=== PATIENT | female | born 1960 | race American Indian/Alaskan Native ===

== ENCOUNTER 2016-09-18 14:10 | Inpatient (IN) | payer MEDICARE ==
--- NOTE | 2016-09-18 14:19 | Emergency Department Report ---
Entered by BRICE SOLER, acting as scribe for KISHAN CAM NP. Chief Complaint: Chest Pain Stated Complaint: STROKE Time Seen by Provider: 09/18/16 14:15 - HPI History of Present Illness: 56 y/o female presents with chest pain and SOB that started last night. Sx include trouble talking. Pt is anxious and crying during eval. - ROS Review of Systems: +chest pain +SOB +trouble talking - Exam Physical Exam: obese pt is anxious and crying MSE screening note: Focused history and physical exam performed. Due to findings the following was ordered: labs, ekg, ct ED Disposition for MSE Condition: Stable This documentation as recorded by the scribe,BRICE SOLER,accurately reflects the service I personally performed and the decisions made by ,KISHAN CAM , [employer].
[2016-09-18 14:40] LABS: Basophils % (Auto) 0.9 % (0.0-1.8); Eosinophils % (Auto) 1.4 % (0.0-4.3); Hematocrit 42.3 % (30.3-42.9); Hemoglobin 13.3 gm/dl (10.1-14.3); Mean Corpuscular HGB Conc 32 % (30-34); Mean Corpuscular Volume 82 fl (79-97); Red Blood Count 5.15 M/mm3 (3.65-5.03); Red Cell Distribution Width 15.9 % (13.2-15.2); White Blood Count 14.5 K/mm3 (4.5-11.0)
[2016-09-18 14:46] LABS: Anion Gap 17 mmol/L; Blood Urea Nitrogen 18 mg/dL (7-17); Calcium 9.6 mg/dL (8.4-10.2); Carbon Dioxide 26 mmol/L (22-30); Chloride 99.7 mmol/L (98-107); Glucose 278 mg/dL (65-100); Potassium 4.7 mmol/L (3.6-5.0); Sodium 138 mmol/L (137-145)
[2016-09-18] MEDS ORDERED: REGLAN IV ONE (14:46)
[2016-09-18] MEDS ORDERED: APRESOLINE IV ONE (14:46)
--- NOTE | 2016-09-18 14:46 | Emergency Department Report ---
ED Neuro Deficit HPI - General Chief Complaint: Neuro Symptoms/Deficit Stated Complaint: STROKE Time Seen by Provider: 09/18/16 14:15 Source: patient, family, RN notes reviewed, old records reviewed Mode of arrival: Ambulatory Limitations: Physical Limitation - History of Present Illness Initial Comments: This is a 56-year-old female. She is previously unknown to me. Past medical history includes stroke, diabetes, hypertension, congestive heart failure, prior stroke with residual right-sided weakness. Her primary care doctor is Dr Mike Patient presents to the ER with her sister with concern for subacute stroke. As per the patient's sister, Ms. Bello; [phone], patient has been having issues with speech and dysarthria since yesterday. The patient has chronic weakness in the right upper and right lower extremity which is not new, worsening or different. Patient also complains of mild global, throbbing headache. There is chronic shortness of breath which is not new, worsening or different. Symptoms started last night at around 9:00 PM. They are constant. They do not have exacerbating or relieving factors. -: Sudden Location: speech Presenting Symptoms: Present: Unable to Speak Clearly History of same: Yes Place: home Severity: severe Quality: constant Improves With: none Worsens With: none On Anticoagulants: Yes Context: gradual onset Associated Symptoms: cough, headaches, loss of appetite, shortness of breath, weakness. denies: confusion, chest pain - Related Data Home Medications: Home Medications Medication Instructions Recorded Confirmed Last Taken Hydrochlorothiazide [HCTZ] 25 mg PO QDAY 09/18/16 09/18/16 09/17/16 Insulin Aspart [NovoLOG Flexpen] 8 unit SQ TID 09/18/16 09/18/16 09/17/16 Insulin Glargine,Hum.rec.anlog 25 unit SQ QHS 09/18/16 09/18/16 09/17/16 [Lantus Solostar] Previous Rx's Medication Instructions Recorded Last Taken Type ALBUTEROL NEB's [Proventil 0.083% 2.5 mg IH Q6HRT #100 nebu 03/09/16 09/17/16 Rx NEBS] Hydralazine HCl [Apresoline TAB] 100 mg PO BID #60 tablet 03/09/16 09/17/16 Rx Allergies/Adverse Reactions: Allergies Allergy/AdvReac Type Severity Reaction Status Date / Time No Known Allergies Allergy Unverified 02/25/14 14:49 ED Review of Systems ROS: Stated complaint: STROKE Other details as noted in HPI Constitutional: malaise, weakness Eyes: denies: vision change Respiratory: shortness of breath, wheezing Cardiovascular: dyspnea on exertion Gastrointestinal: denies: abdominal pain Genitourinary: denies: urgency Musculoskeletal: denies: back pain Skin: denies: lesions Neurological: headache, weakness Psychiatric: anxiety ED Past Medical Hx - Past Medical History Previous Medical History?: Yes Hx Hypertension: Yes Hx Heart Attack/AMI: No Hx Congestive Heart Failure: No Hx Diabetes: Yes Hx Deep Vein Thrombosis: No Hx Pulmonary Embolism: No Hx Liver Disease: No Hx Renal Disease: No Hx Sickle Cell Disease: No Hx Arthritis: No Hx Seizures: No Hx Kidney Stones: No Hx Asthma: Yes Hx COPD: No Hx Tuberculosis: No Hx Dementia: No Hx HIV: No Additional medical history: high cholesterol - Surgical History Past Surgical History?: Yes Hx Coronary Stent: No Hx Open Heart Surgery: No Hx Pacemaker: No Hx Internal Defibrillator: No Hx Cholecystectomy: Yes Hx Appendectomy: Yes Hx Breast Surgery: No - Social History Smoking Status: Never Smoker Substance Use Type: Alcohol, Non Opiate Pain, Prescribed - Medications Home Medications: Home Medications Medication Instructions Recorded Confirmed Last Taken Type ALBUTEROL NEB's [Proventil 0.083% 2.5 mg IH Q6HRT #100 nebu 03/09/16 09/18/16 Rx NEBS] Hydralazine HCl [Apresoline TAB] 100 mg PO BID #60 tablet 03/09/16 09/18/16 Rx Hydrochlorothiazide [HCTZ] 25 mg PO QDAY 09/18/16 09/18/16 09/17/16 History Insulin Aspart [NovoLOG Flexpen] 8 unit SQ TID 09/18/16 09/18/16 09/17/16 History Insulin Glargine,Hum.rec.anlog 25 unit SQ QHS 09/18/16 09/18/16 09/17/16 History [Lantus Solostar] ED Neuro Physical Exam - General Limitations: No Limitations General appearance: alert, in distress, obese Suspected Stroke: Yes - Head Head exam: Present: atraumatic, normocephalic - Eye Eye exam: Present: normal appearance, EOMI. Absent: nystagmus - ENT ENT exam: Present: normal exam, normal orophraynx, mucous membranes moist, normal external ear exam - Neck Neck exam: Present: normal inspection, full ROM. Absent: tenderness, meningismus - Respiratory Respiratory exam: Present: rhonchi - Cardiovascular Cardiovascular Exam: Present: regular rate, normal rhythm, normal heart sounds. Absent: bradycardia, tachycardia, irregular rhythm, systolic murmur, diastolic murmur, rubs, gallop - GI/Abdominal GI/Abdominal exam: Present: soft, normal bowel sounds. Absent: distended, tenderness, guarding, rebound, rigid, pulsatile mass, hernia - Extremities Exam Extremities exam: Present: normal inspection, full ROM, normal capillary refill , pedal edema. Absent: calf tenderness - Back Exam Back exam: Present: normal inspection, full ROM. Absent: tenderness, CVA tenderness (R), CVA tenderness (L), muscle spasm, paraspinal tenderness, vertebral tenderness - Neurological Exam Neurological exam: Present: alert, oriented X3, other (Extraocular movements intact. Tongue midline. No facial droop. Facial sensation intact to light touch in the V1, V2, V3 distribution bilaterally. 5 and 5 strength in 4 extremities.. Sensation is intact to light touch in 4 extremities.). Absent: motor sensory deficit - NIHSS Assessment Interval: Baseline 1a. Level of Consciousness: alert 1b. LOC Questions: answers correctly 1c. LOC Commands: performs tasks correctly 2. Best Gaze: normal 3. Visual: no visual loss 4. Facial Palsy: normal symmetrical movement 5b. Motor Arm Right: no drift 5a. Motor Arm Left: no drift 6a. Motor Leg Left: no drift 6b. Motor Leg Right: no drift 7. Limb Ataxia: absent 8. Sensory: normal 9. Best Language: no aphasia 10. Dysarthria: severe dysarthria 11. Extinction/Inattention: no abnormality Total Score: 2 Stroke Severity: Minor Stroke - Psychiatric Psychiatric exam: Present: anxious - Skin Skin exam: Present: warm, dry, intact, normal color. Absent: rash ED Course Vital Signs 09/18/16 09/18/16 09/18/16 14:17 15:28 15:51 Temperature 97.8 F Pulse Rate 97 H 88 107 H Pulse Rate [ Bilateral Upper Lobe] Respiratory 18 20 Rate Respiratory Rate [Bilateral Upper Lobe] Blood Pressure 220/118 201/128 Blood Pressure 158/81 [Left] O2 Sat by Pulse 96 97 Oximetry 09/18/16 09/18/16 09/18/16 16:02 16:10 17:06 Temperature 97.8 F Pulse Rate 110 H Pulse Rate [ 88 90 Bilateral Upper Lobe] Respiratory 18 Rate Respiratory 20 20 Rate [Bilateral Upper Lobe] Blood Pressure Blood Pressure 120/75 [Left] O2 Sat by Pulse 97 Oximetry - Reevaluation(s) Reevaluation #1: 09/18/16 18:55 Dr. Mike, the hospital physician, patient's private physician , accepts the patient to his personal service. Dr Vasquez informed - Lab Data Result diagrams: 09/18/16 14:16 09/18/16 14:16 Lab Results 09/18/16 09/18/16 09/18/16 Range/Units 14:12 14:16 14:16 WBC 14.5 H (4.5-11.0) K/mm3 RBC 5.15 H (3.65-5.03) M/mm3 Hgb 13.3 (10.1-14.3) gm/dl Hct 42.3 (30.3-42.9) % MCV 82 (79-97) fl MCH 26 L (28-32) pg MCHC 32 (30-34) % RDW 15.9 H (13.2-15.2) % Plt Count 329 (140-440) K/mm3 Lymph % (Auto) 19.4 (13.4-35.0) % [place] % (Auto) 5.5 (0.0-7.3) % Eos % (Auto) 1.4 (0.0-4.3) % Baso % (Auto) 0.9 (0.0-1.8) % Lymph # 2.8 (1.2-5.4) K/mm3 [place] # 0.8 (0.0-0.8) K/mm3 Eos # 0.2 (0.0-0.4) K/mm3 Baso # 0.1 (0.0-0.1) K/mm3 Seg Neutrophils % 72.8 H (40.0-70.0) % Seg Neutrophils # 10.5 H (1.8-7.7) K/mm3 PT 12.6 (12.2-14.9) Sec. INR 0.95 (0.87-1.13) APTT 28.8 (24.2-36.6) Sec. Thrombin Time (15.1-19.6) Sec. Sodium (137-145) mmol/L Potassium (3.6-5.0) mmol/L Chloride (98-107) mmol/L Carbon Dioxide (22-30) mmol/L Anion Gap mmol/L BUN (7-17) mg/dL Creatinine (0.7-1.2) mg/dL Estimated GFR ml/min BUN/Creatinine Ratio % Glucose (65-100) mg/dL POC Glucose 262 H (70-105) Calcium (8.4-10.2) mg/dL Troponin T (0.00-0.029) ng/mL NT-Pro-B Natriuret Pep (0-900) pg/mL Urine Color (Yellow) Urine Turbidity (Clear) Urine pH (5.0-7.0) Ur Specific [place] (1.003-1.030) Urine Protein (Negative) mg/dL Urine Glucose (UA) (Negative) mg/dL Urine Ketones (Negative) mg/dL Urine Blood (Negative) Urine Nitrite (Negative) Urine Bilirubin (Negative) Urine Urobilinogen (<2.0) mg/dL Ur Leukocyte Esterase (Negative) Urine WBC (Auto) (0.0-6.0) /HPF Urine RBC (Auto) (0.0-6.0) /HPF U Epithel Cells (Auto) (0-13.0) /HPF Urine Bacteria (Auto) (Negative) /HPF Urine Mucus /HPF 09/18/16 09/18/16 09/18/16 Range/Units 14:16 14:16 14:16 WBC (4.5-11.0) K/mm3 RBC (3.65-5.03) M/mm3 Hgb (10.1-14.3) gm/dl Hct (30.3-42.9) % MCV (79-97) fl MCH (28-32) pg MCHC (30-34) % RDW (13.2-15.2) % Plt Count (140-440) K/mm3 Lymph % (Auto) (13.4-35.0) % [place] % (Auto) (0.0-7.3) % Eos % (Auto) (0.0-4.3) % Baso % (Auto) (0.0-1.8) % Lymph # (1.2-5.4) K/mm3 [place] # (0.0-0.8) K/mm3 Eos # (0.0-0.4) K/mm3 Baso # (0.0-0.1) K/mm3 Seg Neutrophils % (40.0-70.0) % Seg Neutrophils # (1.8-7.7) K/mm3 PT (12.2-14.9) Sec. INR (0.87-1.13) APTT (24.2-36.6) Sec. Thrombin Time 15.8 (15.1-19.6) Sec. Sodium 138 (137-145) mmol/L Potassium 4.7 (3.6-5.0) mmol/L Chloride 99.7 (98-107) mmol/L Carbon Dioxide 26 (22-30) mmol/L Anion Gap 17 mmol/L BUN 18 H (7-17) mg/dL Creatinine 0.9 (0.7-1.2) mg/dL Estimated GFR > 60 ml/min BUN/Creatinine Ratio 20.00 % Glucose 278 H (65-100) mg/dL POC Glucose (70-105) Calcium 9.6 (8.4-10.2) mg/dL Troponin T < 0.010 (0.00-0.029) ng/mL NT-Pro-B Natriuret Pep 119.2 (0-900) pg/mL Urine Color (Yellow) Urine Turbidity (Clear) Urine pH (5.0-7.0) Ur Specific [place] (1.003-1.030) Urine Protein (Negative) mg/dL Urine Glucose (UA) (Negative) mg/dL Urine Ketones (Negative) mg/dL Urine Blood (Negative) Urine Nitrite (Negative) Urine Bilirubin (Negative) Urine Urobilinogen (<2.0) mg/dL Ur Leukocyte Esterase (Negative) Urine WBC (Auto) (0.0-6.0) /HPF Urine RBC (Auto) (0.0-6.0) /HPF U Epithel Cells (Auto) (0-13.0) /HPF Urine Bacteria (Auto) (Negative) /HPF Urine Mucus /HPF 09/18/16 Range/Units 17:07 WBC (4.5-11.0) K/mm3 RBC (3.65-5.03) M/mm3 Hgb (10.1-14.3) gm/dl Hct (30.3-42.9) % MCV (79-97) fl MCH (28-32) pg MCHC (30-34) % RDW (13.2-15.2) % Plt Count (140-440) K/mm3 Lymph % (Auto) (13.4-35.0) % [place] % (Auto) (0.0-7.3) % Eos % (Auto) (0.0-4.3) % Baso % (Auto) (0.0-1.8) % Lymph # (1.2-5.4) K/mm3 [place] # (0.0-0.8) K/mm3 Eos # (0.0-0.4) K/mm3 Baso # (0.0-0.1) K/mm3 Seg Neutrophils % (40.0-70.0) % Seg Neutrophils # (1.8-7.7) K/mm3 PT (12.2-14.9) Sec. INR (0.87-1.13) APTT (24.2-36.6) Sec. Thrombin Time (15.1-19.6) Sec. Sodium (137-145) mmol/L Potassium (3.6-5.0) mmol/L Chloride (98-107) mmol/L Carbon Dioxide (22-30) mmol/L Anion Gap mmol/L BUN (7-17) mg/dL Creatinine (0.7-1.2) mg/dL Estimated GFR ml/min BUN/Creatinine Ratio % Glucose (65-100) mg/dL POC Glucose (70-105) Calcium (8.4-10.2) mg/dL Troponin T (0.00-0.029) ng/mL NT-Pro-B Natriuret Pep (0-900) pg/mL Urine Color Yellow (Yellow) Urine Turbidity Clear (Clear) Urine pH 5.0 (5.0-7.0) Ur Specific [place] 1.023 (1.003-1.030) Urine Protein >500 (Negative) mg/dL Urine Glucose (UA) 50 (Negative) mg/dL Urine Ketones Neg (Negative) mg/dL Urine Blood Neg (Negative) Urine Nitrite Neg (Negative) Urine Bilirubin Neg (Negative) Urine Urobilinogen < 2.0 (<2.0) mg/dL Ur Leukocyte Esterase Neg (Negative) Urine WBC (Auto) < 1.0 (0.0-6.0) /HPF Urine RBC (Auto) < 1.0 (0.0-6.0) /HPF U Epithel Cells (Auto) 5.0 (0-13.0) /HPF Urine Bacteria (Auto) 1+ (Negative) /HPF Urine Mucus Few /HPF - EKG Data -: EKG Interpreted by Ri EKG shows normal: sinus rhythm 09/18/16 15:38 Normal sinus, 90 bpm, normal axis, high left ventricular voltage,/left ventricular hypertrophy, T-wave inversion 1 and aVL, poor R-wave progression, lateral T wave inversions, poor R progression, not morphologically consistent with STEMI, abnormal EKG, appears unchanged when compared to prior, with the exception of new T-wave inversions in the lateral leads. This is a nonspecific finding. - Radiology Data Radiology results: report reviewed, image reviewed X-ray of the chest is negative for acute findings. Noncontrast CT scan of the brain is negative for acute findings - Medical Decision Making differential diagnosis: Stroke, pneumonia, urinary tract infection, hypertensive encephalopathy/neuropathy Assessment and plan: 56-year-old female with onset of slurred speech and headache since 9:00 last night. Not a TPA candidate as she presented more than 4.5 hours after symptom onset. Not an endovascular candidate as she presented more than 8 hours after symptom onset. Noncontrast CT scan of the brain is negative. EKG has nonspecific findings and changes. This may be hypertensive or neurologically related. Patient is given hydralazine and aspirin as well as Reglan. The case is presented to the Hospital physician, Dr. Vasquez, who accepts the patient for subacute stroke, as well as hypertensive urgency. - Core Measures Measure Exclusions: not indicated - Thrombolytic Inclusion/Exclusion Thrombolytic Exclusion Criteria: Symptom Onset > 3 Hours Critical care attestation.: If time is entered above; I have spent that time in minutes in the direct care of this critically ill patient, excluding procedure time. ED Disposition Clinical Impression: Slurred speech, Hypertension, Morbid obesity with BMI of 50.0-59.9, adult Disposition: DC-09 OP ADMIT IP TO THIS HOSP Is pt being admited?: Yes Does the pt Need Aspirin: Yes Condition: Good Instructions: Hypertension (ED) Referrals: PRIMARY CARE, [Primary Care Provider] - 3-5 Days
--- NOTE | 2016-09-18 14:52 | Admit Criteria Form ---
Admission Criteria Documentation: NEUROLOGY GRG Clinical Indications for Admission to Inpatient Care (Place ' X' for any and all applicable criteria): Hospital admission is needed for appropriate care of the patient because of 1 or more of the following: [ ]I. Encephalitis [ ]II. Severe GUNNER'S MATE M infections indicated by 1 or more of the following(1)(2)(3) : [ ]a) Intracranial abscess [ ]b) Spinal abscess or myelitis [ ]c) Tuberculous or other nonbacterial, nonviral GUNNER'S MATE M infection(8) [ ]III. Vasculitis and 1 or more of the following(14)(15): []a) Altered mental status that is severe or persistent or other acute neurologic change []b) Psychosis []c) Seizure [ ]IV. Status epilepticus or repetitive seizures not controlled with emergent treatment [A] (7)(8) [ ]V. Altered mental status that is severe or persistent [ ]. Transient alteration in consciousness with high-risk etiology; examples include (12)(13): [ ]a) Cardiovascular source [ ]b) Cataplexy [ ]VII. Cerebral aneurysm requiring ANY ONE of the following(14): [ ]a) IV antihypertensives or vasoactive agents [ ]b) Sedation and analgesia for suspected leak [ ]c) Need for external ventricular drainage and cerebral perfusion pressure monitoring [ ]d) Emergent evaluation to determine need for surgical clipping or endovascular coiling by interventional radiology. If surgery is required ( Also use Craniotomy, Supratentorial, for Surgery of Bleeding Intracranial Aneurysm (for bleeding aneurysm) or Craniotomy, Supratentorial (for nonbleeding aneurysm) as appropriate. [ ]VIII. New-onset severe neurologic symptom requiring inpatient care indicated by ANY ONE of the following: [ ]a) Aphasia(15) [ ]b) Weakness (grade 3 or less) [ ]c) Paralysis (eg, hemiplegia) [ ]d) Spasticity(16) [ ]e) Dystonia [ ]e) Ataxia(17) [ ]f) Amnesia(18) [ ]g) Involuntary movements(19) [ ]h) Vertigo [ ] Visual loss [ ]i) Other severe neurologic finding (eg, papilledema, mass effect on imaging, myoclonus not treatable at alternative level of care (eg, observation care) [ ]IX. Guillain-Citra syndrome(20) [ ]X. Myasthenia gravis crisis or inpatient monitoring need as indicated by 1 or more of the following(21): [ ]a) Intensive treatment (eg, course of plasmapheresis) with inadequate outpatient situation to monitor patients status [ ]b) Inadequate airway protection [ ]c) Respiratory insufficiency requiring intubation or inpatient. monitoring [ ]d) Progressive dysphagia with failure to thrive [ ]XI. Multiple sclerosis or other acute demyelinating disease requiring inpatient care as indicated by 1 or more of the following (22)(23): [ ]a) Acute severe deterioration requiring inpatient treatment (eg, IV steroids, plasmapheresis, close observation) [ ]b) Acute complication requiring inpatient care (eg, sepsis, severe decubitus, aspiration) [ ]XII.Parkinson disease requiring inpatient care (Also use Optimal Recovery Care Criteria or General Recovery Criteria as appropriate) indicated by 1 or more of the following(25): [ ]a) Infection (eg, aspiration pneumonia) not treatable at alternative level of care [ ]b Dehydration that is severe or persistent [ ]c) Life-threatening agitation or psychotic behavior not treatable on emergency, observation care, or alternative level (eg, residential) basis [ ]d) Severe medication withdrawal effects (eg, freezing, neuroleptic malignant syndrome) not responsive to emergency and observation care treatment ( as appropriate) [ ]e) Other severe manifestation not treatable at alternative level of care [ ]XII. Amyotrophic lateral sclerosis with inpatient care needs as indicated by ANY ONE of the following(26): [ ]a) Acute complications (eg, aspiration pneumonia, sepsis ) requiring inpatient care ( see other optimal Recovery Guideline as appropriate) [ ]b) Dehydration that is severe persistent AND artificial support desired [ ]c) Inadequate airway protection AND artificial support desired [ ]d) Severe ventilatory insufficiency AND artificial support desired [ ]XIII. Myasthenia gravis crisis or inpatient monitoring need as indicated by 1 or more of the following(21): [] a) Inadequate airway protection []b) Respiratory insufficiency requiring intubation or inpatient monitoring []c) Progressive dysphagia with failure to thrive []d) Intensive treatment (e.g., course of plasmapheresis) with inadequate outpatient situation to monitor patients status [ ]XIV. Multiple sclerosis or other acute demyelinating disease requiring inpatient care indicated by 1 or more of the following[C](36)(43)(44)(45)(46): []a) Acute severe deterioration requiring inpatient treatment (eg, IV steroids, plasmapheresis, close observation) []b) Acute complication requiring inpatient care (eg, sepsis, severe decubitus, aspiration) [ ]XV. Intracranial hypertension (e.g., pseudotumor cerebri) requiring inpatient care (e.g., acute visual loss, inadequate oral intake) (47)(48)(49) [ ]XVI. Parkinson disease requiring inpatient care (Also use Optimal Recovery Care Criteria or General Recovery Criteria as appropriate) indicated by 1 or more of the following(25): [] a) Infection (e.g., aspiration pneumonia) not treatable at alternative level of care []b) Volume depletion not responsive to emergency and observation care treatment (as appropriate) []c) Life-threatening agitation or psychotic behavior not treatable on emergency, observation care, or alternative level (e.g., residential) basis []d) Severe medication withdrawal effects (e.g., freezing, neuroleptic malignant syndrome) not responsive to emergency and observation care treatment (as appropriate) []e) Other severe manifestation not treatable at alternative level of care [ ]XVII. Amyotrophic lateral sclerosis with inpatient care needs as indicated by1 or more of the following(42): []a) Acute complications (eg, aspiration pneumonia, sepsis) requiring inpatient care (see other Optimal Recovery Guideline or General Recovery Guideline as appropriate) []b) Dehydration that is severe or persistent AND artificial support desired []c) Inadequate airway protection AND artificial support desired []d) Severe ventilatory insufficiency AND artificial support desired [ ]XVIII. Severe myopathy, neuropathy, or other neuromuscular disease indicated by 1 or more of the following(42)(52)(53)(54): []a ) New-onset severe diffuse weakness (eg, strength 3/5 or less) []b) Severe dysphagia []c) Dyspnea at rest or with minimal exertion (new) []d) Inadequate airway protection []e) Inadequate ventilation indicated by 1 or more of the following : i) Partial pressure of carbon dioxide greater than 44 mm Hg ( 5.9 kPa) (new) ii) Reduced peak expiratory flow rate (new) iii) Vital capacity less than 50% of predicted (less than 15 mL/kg) iv) Peak inspiratory force less negative than -30 cm H2O (- 2942 Pa) [ ]XVII.Complications of congenital or degenerative disease (eg, infection, seizures, dehydration, injury) not responsive to emergency and observation care treatment (as appropriate ) [C](16)(29)(30) [ ]XVIII.Suspected or confirmed nerve or muscle toxic injury, including ANY ONE of the following: [ ]a) Rhabdomyolysis(31) i) Acute renal failure ii) Dehydration that is severe or persistent iii) Altered mental status that is severe or persistent iv) Electrolyte abnormality that remains after emergency or observation level care ( as appropriate) [ ]b) Botulism(32) [ ]c) Other severe toxin-induced sign or symptom [ ]XIX. Neurologic trauma requiring inpatient treatment (medical) indicated by ANY ONE of the following(33)(34): [ ]a) Vital signs or neurologic signs more frequently than every 4 hours [ ]b) Hyperosmolar therapy [ ]c) Respiratory monitoring [ ]d) Intracranial pressure monitoring and treatment [ ]e) Stabilization and immobilization device placement (eg, braces, body jacket) [ ]f) Intubation & mechanical ventilation for airway protection or therapeutic hyperventilation [ ]g) Other treatment or monitoring needed that requires inpatient level of care [ ]XX.Complications of neurologic devices (eg, ventricular shunt, neurostimulator) requiring 1 or more of the following(35)(36): [ ]a) IV antibiotics with monitoring while awaiting culture results [ ]b) Monitoring for hydrocephalus [X ]XXI. Neurology condition symptom, or finding for which emergency and observation care have failed or are not considered appropriate. See General Criteria: Observation Care ISC, General Admission Criteria GRG, or Pediatric General Admission Criteria GRG guideline as appropriate. The original [facility] content created by [facility] [employer] has been revised. The portions of the content which have been revised are identified through the use of italic text or in bold, and [facility] has neither reviewed nor approved the modified material. All other unmodified content is copyright [facility] [place] Please see references footnoted in the original [facility] edition 2016 Admission Criteria Met: Yes
[2016-09-18 14:55] LABS: INR 0.95 (0.87-1.13)
[2016-09-18 14:56] LABS: Partial Thromboplastin Time 28.8 Sec. (24.2-36.6)
[2016-09-18 15:07] LABS: Mean Corpuscular Hemoglobin 26 pg (28-32)
[2016-09-18 15:13] LABS: Platelet Count 329 K/mm3 (140-440)
--- NOTE | 2016-09-18 15:16 | Cat Scan Report ---
HEAD CT WITHOUT CONTRAST INDICATION: Neurologic deficits less than 6 hours or symptoms present upon awakening. COMPARISON: 03/05/2016 FINDINGS: Noncontrast head CT with few images repeated for motion demonstrates symmetric ventricles and sulci without acute or recent infarct, hemorrhage, mass effect or midline shift. No abnormal extra-axial fluid collections. Posterior fossa structures and basilar cisterns appear within normal limits. Clear paranasal sinuses and mastoid air cells. Extensive bilateral external auditory canal debris may be directly visualized. 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 Normal scalp. CONCLUSION: No acute intracranial CT abnormality with few other findings, as above. MRI is more sensitive for detection of acute infarct and may be useful for further evaluation in the setting of a focal neurologic deficit. Thank you for the opportunity to participate in this patient's care.
--- NOTE | 2016-09-18 15:21 | XRay Report ---
PORTABLE CHEST: SOB. An AP portable view of the chest demonstrates a normal cardiac contour considering the limits of this technique. The lungs are clear with no evidence of infiltrate, fluid or failure. No interval change compared to July 16, 2014. IMPRESSION: Normal portable chest.
[2016-09-18] MEDS ORDERED: BABY ASPIRIN PO ONE (15:40)
[2016-09-18] MEDS ORDERED: ATROVENT IH ONE (15:54)
[2016-09-18] MEDS ORDERED: PROVENTIL IH ONE (15:54)
[2016-09-18] MEDS ORDERED: ATIVAN ONE (16:11)
[2016-09-18] MEDS ORDERED: ATIVAN IV ONE (16:22)
[2016-09-18 17:19] LABS: Bacteria,Urine 1+ /HPF (Negative); Bilirubin,Urine NEG (Negative); Blood,Urine NEG (Negative); Ketones,Urine NEG (Negative); Leukocyte Esterase,Urine NEG (Negative); Mucus,Urine FEW /HPF; Nitrite,Urine NEG (Negative); Protein,Urine >500 mg/dL (Negative); RBC,Urine < 1.0 /HPF (0.0-6.0); Urobilinogen,Urine < 2.0 mg/dL (<2.0); WBC,Urine < 1.0 /HPF (0.0-6.0)
[2016-09-18] MEDS ORDERED: PROVENTIL IH PRN (19:23)
[2016-09-18] MEDS: LOVENOX SUB-Q SCH (21:44)
[2016-09-18] MEDS ORDERED: D50W (25GM) IV PRN (21:48)
[2016-09-18] MEDS: LEVEMIR SUB-Q SCH (22:19)
[2016-09-18] MEDS: NOVOLOG SUB-Q SCH (22:20)
[2016-09-19] MEDS ORDERED: MORPHINE IV PRN (06:16)
[2016-09-19] MEDS: TYLENOL PO PRN ×3 (06:47→16:58)
[2016-09-19] MEDS: NOVOLOG SUB-Q SCH ×4 (09:27→22:13)
--- NOTE | 2016-09-19 09:39 | History and Physical Report ---
History of Present Illness Date of examination: 09/19/16 Date of admission: 09/18/16 19:21 Chief complaint: Slurred speech Headache History of present illness: Pt is a 56-year-old morbidly obese lady with a history of hypertension, diabetes mellitus, prior stroke, noncompliant with office visits and medication , started having slurred speech about a week ago. Slurred speech Progressively got worse, associated with headache that was dull in nature, frontal in location. 9/10 in severity. Nonradiating. No known aggravating factor. Relieved by Tylenol and tramadol. Denies any nausea, vomiting,or chest pain. Presented to the emergency department with systolic blood pressure was found to be in the 200s. Slurred speech was obvious at presentation. CT scan of the brain was ordered. However patient's body habitus couldn't fit into the machine therefore this was not done. MRI question of Dr. Marie reason. Patient was commenced on aspirin and atorvastatin. Blood pressure was optimized with oral antihypertensives medications. Patient also has a history of diabetes mellitus for which she was started on sliding scale insulin. On account of difficulty in obtaining imaging studies patient will be intraventricular for acute stroke. Patient complains of polyuria. Denies any polydipsia. Has burning sensation in both lower extremities. No blurred vision. Admission was therefore requested. Past History Past Medical History: COPD, hypertension, stroke Past Surgical History: No surgical history Social history: single. denies: smoking, alcohol abuse, prescription drug abuse Family history: denies: hypertension Medications and Allergies Allergies Allergy/AdvReac Type Severity Reaction Status Date / Time No Known Allergies Allergy Unverified 02/25/14 14:49 Home Medications Medication Instructions Recorded Confirmed Last Taken Type ALBUTEROL NEB's [Proventil 0.083% 2.5 mg IH Q6HRT #100 nebu 03/09/16 09/18/16 Rx NEBS] Hydralazine HCl [Apresoline TAB] 100 mg PO BID #60 tablet 03/09/16 09/18/16 Rx Hydrochlorothiazide [HCTZ] 25 mg PO QDAY 09/18/16 09/18/16 09/17/16 History Insulin Aspart [NovoLOG Flexpen] 8 unit SQ TID 09/18/16 09/18/16 09/17/16 History Insulin Glargine,Hum.rec.anlog 25 unit SQ QHS 09/18/16 09/18/16 09/17/16 History [Lantus Solostar] Active Meds: Active Medications Acetaminophen (Tylenol) 650 mg PO Q4H PRN PRN Reason: Pain, Mild (1-3) Last Admin: 09/19/16 08:06 Dose: 650 mg Albuterol (Proventil) 2.5 mg IH Q6H PRN PRN Reason: Wheezing Aspirin (Aspirin) 325 mg PO QDAY [facility] Atorvastatin Calcium (Lipitor) 40 mg PO QHS [facility] Last Admin: 09/19/16 01:05 Dose: Not Given Dextrose (D50w (25gm)) 50 ml IV PRN PRN PRN Reason: Hypoglycemia Enoxaparin Sodium (Lovenox) 40 mg SUB-Q DAILY [facility] Last Admin: 09/18/16 21:44 Dose: 40 mg Insulin Aspart (Novolog) 0 units SUB-Q ACHS [facility] PRN Reason: Protocol Last Admin: 09/19/16 09:27 Dose: 8 units Insulin Detemir (Levemir) 25 units SUB-Q QHS [facility] Last Admin: 09/18/16 22:19 Dose: 25 units Methylprednisolone Sodium Succinate (Solu-Medrol) 40 mg IV Q12H [facility] Last Admin: 09/19/16 04:20 Dose: 40 mg Morphine Sulfate (Morphine) 2 mg IV Q4H PRN PRN Reason: Pain, Moderate (4-6) Review of systems Constitutional: Well Nouridhed and Well developed. Head: NC/ AT Eyes: Denies any visual impairments. No discharge from the eyes Nose: Denies any rhinorrhea or epistaxis Throats: Denies any post nasal drainage. Ears: Denies any hearing deficits Cardiovascular system: Denies any chest pain, shortness of breath, orthopnea, paroxysmal nocturnal dyspnea, or palpitation. Respiratory system: Denies any cough, difficulty breathing, wheezing, pleuritic chest pain, Gastrointestinal system: Denies any abdominal pain, nausea vomiting, hematemesis or melena. Neurological system: Has headache, slurred speech, no facial droop, lateralizing weakness Genitalia system: Denies any dysuria, urinary frequency or urgency, urethral discharge Skin: No rashes, hyperpigmented spots. Hematological: Denies any cervical tenderness hemorrhages or petechia. Immunological: Denies any multiple septic spots, Lymphatic: Denies any generalized lymphadenopathy. Endocrine: Denies any polyuria, polydipsia, polyphagia. No heat or cold intolerance. Musculoskeletal system: No joint pain or swelling. Psych: No visual, tactile, auditory or hallucination Exam - Constitutional Vitals: Temp Pulse Resp BP Pulse Ox 99.1 F 107 H 20 216/103 92 09/19/16 07:42 09/19/16 07:42 09/19/16 07:42 09/19/16 07:42 09/19/16 07:42 General appearance: Present: no acute distress, well-nourished, obese, other ( has obvious slurred speech) - EENT Eyes: Present: PERRL ENT: hearing intact, clear oral mucosa - Neck Neck: Present: supple, normal ROM - Respiratory Respiratory effort: normal Respiratory: bilateral: CTA - Cardiovascular Heart Sounds: Present: S1 & S2. Absent: rub, click - Extremities Extremities: pulses symmetrical, No edema Peripheral Pulses: within normal limits - Abdominal General gastrointestinal: Present: soft, non-tender, non-distended, normal bowel sounds Female genitourinary: Present: normal - Integumentary Integumentary: Present: clear, warm, dry - Musculoskeletal Musculoskeletal: gait normal, strength equal bilaterally - Psychiatric Psychiatric: appropriate mood/affect, intact judgment & insight - Neurologic Neurologic: CNII-XII intact, moves all extremities Results - Labs CBC & Chem 7: 09/18/16 14:16 09/18/16 14:16 Labs: Abnormal lab results 09/18/16 Range/Units 22:02 POC Glucose 292 H (70-105) Assessment and Plan Assessment and plan -Possible acute cerebrovascular accident with slow speech -Malignant hypertension -Diabetes mellitus type 2 uncontrolled -COPD -Leukocytosis -Morbid obesity -Sleep apnea -Noncompliance Admit patient to telemetry. Commence patient on oxygen to maintain sats equilibrated 94%. Aspirin 325 mg daily, atorvastatin 40 mg daily at bedtime, Lovenox 40 mg subcutaneous daily, Echocardiogram , PT OT ST evaluation and treatment Optimize glycemic control with sliding scale insulin. Check A1c. Consistent carbohydrate diet Optimize blood pressure control with oral antihypertensives using hydralazine lisinopril and amlodipine The that it does with DuoNeb Leukocytosis likely secondary to IV Solu-Medrol. She has no fever. Further evaluate for sleep apnea on outpatient basis Diet-controlled for morbid obesity. consult was obtained. DVT prophylaxis with Lovenox and GI prophylaxis with Protonix Spent 40 minutes during this admission process and this was emergent, the patient. - Patient Problems (1) Hypertension Onset Date: 02/26/14 Current Visit: Yes Status: Acute Qualifiers: Hypertension type: H (2) Slurred speech Current Visit: Yes Status: Acute (3) Morbid obesity with BMI of 50.0-59.9, adult Onset Date: 07/16/14 Current Visit: Yes Status: Chronic (4) Diabetes Onset Date: 02/26/14 Current Visit: No Status: Chronic Qualifiers: Diabetes mellitus type: type 2 Diabetes mellitus complication status: with circulatory complication Diabetes mellitus complication detail: D Diabetic retinopathy severity: D Proliferative retinopathy type: P Diabetes mellitus macular edema: D Diabetes mellitus termite helper insulin use: D Laterality: L Chronic kidney disease stage: C (5) Small vessel disease, cerebrovascular Onset Date: 07/17/14 Current Visit: No Status: Chronic
[2016-09-19] MEDS ORDERED: HCTZ PO SCH (10:00)
[2016-09-19] MEDS: ASPIRIN PO SCH (11:55)
[2016-09-19] MEDS: NORVASC PO SCH (11:56)
[2016-09-19] MEDS: COREG PO SCH ×2 (11:56→22:13)
[2016-09-19] MEDS: LOVENOX SUB-Q SCH (11:56)
[2016-09-19] MEDS: ULTRAM PO PRN (12:11)
[2016-09-19] MEDS: APRESOLINE PO SCH ×2 (13:15→20:14)
[2016-09-19] MEDS ORDERED: INSULIN ASPART 8 UNIT SQ SCH (14:00)
[2016-09-19] MEDS: PROVENTIL IH SCH ×3 (16:08→20:25)
[2016-09-19] MEDS ORDERED: PROVENTIL IH PRN (21:47)
[2016-09-19] MEDS ORDERED: INSULIN GLARGINE HUM REC ANLOG 25 UNIT SQ SCH (22:00)
[2016-09-19] MEDS: LEVEMIR SUB-Q SCH (22:12)
[2016-09-20 06:28] LABS: Basophils % (Auto) 1.4 % (0.0-1.8); Hematocrit 40.6 % (30.3-42.9); Hemoglobin 12.8 gm/dl (10.1-14.3); Mean Corpuscular HGB Conc 31 % (30-34); Mean Corpuscular Hemoglobin 26 pg (28-32); Mean Corpuscular Volume 82 fl (79-97); Platelet Count 334 K/mm3 (140-440); Red Blood Count 4.97 M/mm3 (3.65-5.03); Red Cell Distribution Width 16.5 % (13.2-15.2); White Blood Count 14.5 K/mm3 (4.5-11.0)
[2016-09-20 06:35] LABS: INR 0.93 (0.87-1.13)
[2016-09-20 06:48] LABS: Alanine Aminotransferase 13 units/L (7-56); Albumin 3.4 g/dL (3.9-5); Albumin/Globulin Ratio 0.8 %; Alkaline Phosphatase 77 units/L (35-129); Anion Gap 18 mmol/L; BUN/Creatinine Ratio 27.77; Bilirubin,Total < 0.20 mg/dL (0.1-1.2); Blood Urea Nitrogen 25 mg/dL (7-17); Calcium 10.6 mg/dL (8.4-10.2); Carbon Dioxide 25 mmol/L (22-30); Glucose 312 mg/dL (65-100); Potassium 4.8 mmol/L (3.6-5.0); Sodium 137 mmol/L (137-145); Total Protein 7.5 g/dL (6.3-8.2)
--- NOTE | 2016-09-20 08:24 | Consultation ---
History of Present Illness - Reason for Consult Consult date: 09/20/16 stroke - History of Present Illness patient is seen and assessed full neuro consult is dictated- she has very slurred speech this is suggestive of brain stem stroek Past History Past Medical History: COPD, hypertension, stroke Past Surgical History: No surgical history Social history: single. denies: smoking, alcohol abuse, prescription drug abuse Family history: denies: hypertension Medications and Allergies Allergies Allergy/AdvReac Type Severity Reaction Status Date / Time No Known Allergies Allergy Unverified 02/25/14 14:49 Home Medications Medication Instructions Recorded Confirmed Last Taken Type ALBUTEROL NEB's [Proventil 0.083% 2.5 mg IH Q6HRT #100 nebu 03/09/16 09/18/16 Rx NEBS] Hydralazine HCl [Apresoline TAB] 100 mg PO BID #60 tablet 03/09/16 09/18/16 Rx Hydrochlorothiazide [HCTZ] 25 mg PO QDAY 09/18/16 09/18/16 09/17/16 History Insulin Aspart [NovoLOG Flexpen] 8 unit SQ TID 09/18/16 09/18/16 09/17/16 History Insulin Glargine,Hum.rec.anlog 25 unit SQ QHS 09/18/16 09/18/16 09/17/16 History [Lantus Solostar] Active Meds: Active Medications Acetaminophen (Tylenol) 650 mg PO Q4H PRN PRN Reason: Pain, Mild (1-3) Last Admin: 09/19/16 16:58 Dose: 650 mg Albuterol (Proventil) 2.5 mg IH TIDRT [facility] Albuterol (Proventil) 2.5 mg IH Q4HRT PRN PRN Reason: Shortness Of Breath Amlodipine Besylate (Norvasc) 10 mg PO QDAY [facility] Last Admin: 09/19/16 11:56 Dose: 10 mg Aspirin (Aspirin) 325 mg PO QDAY [facility] Last Admin: 09/19/16 11:55 Dose: 325 mg Atorvastatin Calcium (Lipitor) 40 mg PO QHS [facility] Last Admin: 09/19/16 22:13 Dose: 40 mg Carvedilol (Coreg) 25 mg PO BID [facility] Last Admin: 09/19/16 22:13 Dose: 25 mg Dextrose (D50w (25gm)) 50 ml IV PRN PRN PRN Reason: Hypoglycemia Enoxaparin Sodium (Lovenox) 40 mg SUB-Q DAILY [facility] Last Admin: 09/19/16 11:56 Dose: 40 mg Hydralazine HCl (Apresoline) 100 mg PO TID [facility] Last Admin: 09/19/16 20:14 Dose: 100 mg Insulin Aspart (Novolog) 0 units SUB-Q ACHS [facility] PRN Reason: Protocol Last Admin: 09/19/16 22:13 Dose: 10 units Insulin Detemir (Levemir) 25 units SUB-Q QHS [facility] Last Admin: 09/19/16 22:12 Dose: 25 units Methylprednisolone Sodium Succinate (Solu-Medrol) 40 mg IV Q12H [facility] Last Admin: 09/20/16 04:42 Dose: 40 mg Morphine Sulfate (Morphine) 2 mg IV Q4H PRN PRN Reason: Pain, Moderate (4-6) Tramadol HCl (Ultram) 50 mg PO Q6H PRN PRN Reason: Pain, Moderate (4-6) Last Admin: 09/19/16 12:11 Dose: 50 mg Exam - Constitutional Vitals: Temp Pulse Resp BP Pulse Ox 98.1 F 92 H 22 196/95 94 09/20/16 04:00 09/20/16 04:00 09/20/16 04:00 09/20/16 04:00 09/20/16 04:00 Results - Labs CBC & Chem 7: 09/20/16 06:03 09/20/16 06:03 Labs: Abnormal lab results 09/19/16 09/19/16 09/19/16 Range/Units 07:50 12:43 15:49 WBC (4.5-11.0) K/mm3 MCH (28-32) pg RDW (13.2-15.2) % Baso # (0.0-0.1) K/mm3 Seg Neutrophils % (40.0-70.0) % Seg Neutrophils # (1.8-7.7) K/mm3 BUN (7-17) mg/dL Glucose (65-100) mg/dL POC Glucose 305 H 297 H 274 H (70-105) Calcium (8.4-10.2) mg/dL Albumin (3.9-5) g/dL 09/19/16 09/20/16 09/20/16 Range/Units 21:41 06:03 06:03 WBC 14.5 H (4.5-11.0) K/mm3 MCH 26 L (28-32) pg RDW 16.5 H (13.2-15.2) % Baso # 0.2 H (0.0-0.1) K/mm3 Seg Neutrophils % 81.1 H (40.0-70.0) % Seg Neutrophils # 11.8 H (1.8-7.7) K/mm3 BUN 25 H (7-17) mg/dL Glucose 312 H (65-100) mg/dL POC Glucose 405 H (70-105) Calcium 10.6 H (8.4-10.2) mg/dL Albumin 3.4 L (3.9-5) g/dL
--- NOTE | 2016-09-20 09:39 | Progress Note ---
Assessment and Plan Assessment and Plan -Possible acute cerebrovascular accident with slow speech -Malignant hypertension - -Diabetes mellitus type 2 uncontrolled -COPD -Leukocytosis -Morbid obesity -Sleep apnea -Noncompliance Admit patient to telemetry. Continue with patient on oxygen to maintain sats equilibrated 94%. Aspirin 325 mg daily, atorvastatin 40 mg daily at bedtime, Lovenox 40 mg subcutaneous daily, Echocardiogram , PT OT ST evaluation and treatment Optimize glycemic control with sliding scale insulin. Check A1c. Consistent carbohydrate diet Optimize blood pressure control with oral antihypertensives using hydralazine lisinopril and amlodipine. Add clonidine Continue with DuoNeb Leukocytosis likely secondary to IV Solu-Medrol. She has no fever. Further evaluate for sleep apnea on outpatient basis Diet-controlled for morbid obesity. consult was obtained. DVT prophylaxis with Lovenox and GI prophylaxis with Protonix Spent 40 minutes during this admission process and this was emergent, the patient. - Patient Problems (1) Hypertension Onset Date: 02/26/14 Current Visit: Yes Status: Acute Qualifiers: Hypertension type: H (2) Slurred speech Current Visit: Yes Status: Acute (3) Morbid obesity with BMI of 50.0-59.9, adult Onset Date: 07/16/14 Current Visit: Yes Status: Chronic (4) Diabetes Onset Date: 02/26/14 Current Visit: No Status: Chronic Qualifiers: Diabetes mellitus type: type 2 Diabetes mellitus complication status: with circulatory complication Diabetes mellitus complication detail: D Diabetic retinopathy severity: D Proliferative retinopathy type: P Diabetes mellitus macular edema: D Diabetes mellitus [facility] insulin use: D Laterality: L Chronic kidney disease stage: C (5) Small vessel disease, cerebrovascular Onset Date: 07/17/14 Current Visit: No Status: Chronic Subjective Date of service: 09/20/16 Principal diagnosis: acute on chronic ischemic stroke, T2DM, malignant HTN Interval history: Still having DIEGO though better. Still having slurred speech Objective - Constitutional Vitals: Vital Signs - 12hr 09/19/16 09/20/16 09/20/16 22:13 00:00 04:00 Temperature 98.0 F 98.1 F Pulse Rate 91 H 98 H 92 H Respiratory 24 22 Rate Blood Pressure 153/93 137/62 196/95 O2 Sat by Pulse 95 94 Oximetry 09/20/16 08:00 Temperature 97.7 F Pulse Rate 88 Respiratory 20 Rate Blood Pressure 209/109 O2 Sat by Pulse Oximetry General appearance: Present: no acute distress - EENT Eyes: PERRL - Neck Neck: supple - Respiratory Respiratory: bilateral: CTA - Cardiovascular Rhythm: regular Extremities: no ischemia - Gastrointestinal General gastrointestinal: Present: soft, non-tender, non-distended - Integumentary Integumentary: clear, warm - Musculoskeletal Musculoskeletal: strength equal bilaterally - Neurologic Neurologic: CNII-XII intact - Psychiatric Psychiatric: appropriate mood/affect - Labs CBC & Chem 7: 09/20/16 06:03 09/20/16 06:03 Labs: Abnormal lab results 09/19/16 09/19/16 09/19/16 Range/Units 07:50 12:43 15:49 WBC (4.5-11.0) K/mm3 MCH (28-32) pg RDW (13.2-15.2) % Baso # (0.0-0.1) K/mm3 Seg Neutrophils % (40.0-70.0) % Seg Neutrophils # (1.8-7.7) K/mm3 BUN (7-17) mg/dL Glucose (65-100) mg/dL POC Glucose 305 H 297 H 274 H (70-105) Calcium (8.4-10.2) mg/dL Albumin (3.9-5) g/dL 09/19/16 09/20/16 09/20/16 Range/Units 21:41 06:03 06:03 WBC 14.5 H (4.5-11.0) K/mm3 MCH 26 L (28-32) pg RDW 16.5 H (13.2-15.2) % Baso # 0.2 H (0.0-0.1) K/mm3 Seg Neutrophils % 81.1 H (40.0-70.0) % Seg Neutrophils # 11.8 H (1.8-7.7) K/mm3 BUN 25 H (7-17) mg/dL Glucose 312 H (65-100) mg/dL POC Glucose 405 H (70-105) Calcium 10.6 H (8.4-10.2) mg/dL Albumin 3.4 L (3.9-5) g/dL
[2016-09-20] MEDS: PROVENTIL IH SCH ×3 (10:05→20:24)
[2016-09-20] MEDS: NORVASC PO SCH (10:05)
[2016-09-20] MEDS: TYLENOL PO PRN ×3 (10:05→21:55)
[2016-09-20] MEDS: ASPIRIN PO SCH (10:05)
[2016-09-20] MEDS: LOVENOX SUB-Q SCH (10:06)
[2016-09-20] MEDS: APRESOLINE PO SCH ×3 (10:06→21:46)
[2016-09-20] MEDS: COREG PO SCH ×2 (10:06→21:46)
[2016-09-20] MEDS: NOVOLOG SUB-Q SCH ×4 (10:09→21:55)
[2016-09-20] MEDS: ULTRAM PO PRN (14:34)
[2016-09-20] MEDS: LEVEMIR SUB-Q SCH (21:46)
--- NOTE | 2016-09-21 01:04 | Consultation ---
HISTORY OF PRESENT ILLNESS: This is a 56-year-old female who is admitted to [facility] for evaluation of slurred speech, profound weakness, difficulty standing. The patient has been admitted to here previously for similar symptoms but the patient does not recall the results of workup. She does have by history a prior history of stroke, diabetes, hypertension, congestive heart failure with chronic residual right-sided weakness. She sees Dr. Mike on an outside basis. She is experiencing increased difficulty with slurring of speech, difficulty with breathing. On review of systems, she has extreme slurred speech and this is a new finding on my examination of the patient. ALLERGIES: She has no known allergies. PHYSICAL EXAMINATION: Blood pressure is 140/80, pulse rate is 80, respirations 18. One conspicuous issue is that when I arrived in the room to see her, she was sitting up and cannot lay flat because of shortness of breath and extreme dyspnea. Her speech is very slurred and quite difficult to understand and quite hypernasal suggesting pharyngeal weakness. Her neck is supple. Acid Filler strength is equal. Face is symmetrical to motor and sensory testing. The patient's motor examination shows she is able to sit. She does have fairly good balance, has full ocular movements, intact hearing with the exception of the note that on the CT scan she does have extensive external auditory canal debris which does make changes or high-pitched hearing somewhat. The patient does not have otherwise any focal motor weakness or sensory loss. IMPRESSION: New-onset of dysarthria, dysphagia, difficulty with maintaining respirations. Potentially this patient may have a number of neurological conditions, I would check an MRI. I did mention to the patient that she has ____ scalp. She was not previously aware of this and also suggested her that she see an ENT doctor for earwax cleaning. Hypertension, controlled. Use of statin and low dose aspirin is of course recommended for stroke risk modification and a stroke scale at this point is 2. JOB# [id number] CRISTINE/NTS
[2016-09-21] MEDS: PROVENTIL IH SCH ×3 (07:51→20:13)
[2016-09-21] MEDS: APRESOLINE PO SCH ×3 (09:00→22:44)
[2016-09-21] MEDS: LOVENOX SUB-Q SCH (10:00)
[2016-09-21] MEDS: NORVASC PO SCH (10:00)
[2016-09-21] MEDS: ASPIRIN PO SCH (10:00)
[2016-09-21] MEDS: COREG PO SCH ×2 (10:00→22:45)
[2016-09-21] MEDS: NOVOLOG SUB-Q SCH ×4 (12:00→22:54)
[2016-09-21] MEDS: TYLENOL PO PRN ×2 (18:46→22:54)
--- NOTE | 2016-09-21 21:44 | Progress Note ---
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 Continue with patient on oxygen to maintain sats equilibrated 94%. Aspirin 325 mg daily, atorvastatin 40 mg daily at bedtime, Lovenox 40 mg subcutaneous daily, Echocardiogram , PT OT ST evaluation and treatment Optimize glycemic control with sliding scale insulin. Check A1c. Consistent carbohydrate diet Optimize blood pressure control with oral antihypertensives using hydralazine lisinopril and amlodipine. Add clonidine Continue with DuoNeb Leukocytosis likely secondary to IV Solu-Medrol. She has no fever. Further evaluate for sleep apnea on outpatient basis Diet-controlled for morbid obesity. consult was obtained. DVT prophylaxis with Lovenox and GI prophylaxis with Protonix Spent 40 minutes during this admission process and this was emergent, the patient. - Patient Problems (1) Hypertension Onset Date: 02/26/14 Current Visit: Yes Status: Acute Qualifiers: Hypertension type: H (2) Slurred speech Current Visit: Yes Status: Acute (3) Morbid obesity with BMI of 50.0-59.9, adult Onset Date: 07/16/14 Current Visit: Yes Status: Chronic (4) Diabetes Onset Date: 02/26/14 Current Visit: No Status: Chronic Qualifiers: Diabetes mellitus type: type 2 Diabetes mellitus complication status: with circulatory complication Diabetes mellitus complication detail: D Diabetic retinopathy severity: D Proliferative retinopathy type: P Diabetes mellitus macular edema: D Diabetes mellitus [facility] insulin use: D Laterality: L Chronic kidney disease stage: C (5) Small vessel disease, cerebrovascular Onset Date: 07/17/14 Current Visit: No Status: Chronic Subjective Date of service: 09/21/16 Principal diagnosis: acute on chronic ischemic stroke, T2DM, malignant HTN Interval history: Still having DIEGO though better. Still having slurred speech Objective - Constitutional Vitals: Vital Signs - 12hr 09/21/16 09/21/16 09/21/16 14:13 16:18 18:46 Temperature 98.2 F Pulse Rate 85 Pulse Rate [ 78 Anterior Bilateral Throughout] Respiratory 20 22 Rate Respiratory 15 Rate [Anterior Bilateral Throughout] Blood Pressure 126/69 O2 Sat by Pulse 93 Oximetry 09/21/16 09/21/16 09/21/16 19:48 20:13 20:24 Temperature 98.5 F Pulse Rate 91 H Pulse Rate [ 94 H 91 H Anterior Bilateral Throughout] Respiratory 20 Rate Respiratory 20 20 Rate [Anterior Bilateral Throughout] Blood Pressure 150/83 O2 Sat by Pulse 100 99 Oximetry General appearance: Present: no acute distress, well-nourished, obese - EENT Eyes: PERRL, EOM intact Ears: bilateral: normal - Neck Neck: supple, normal ROM - Respiratory Respiratory effort: normal Respiratory: bilateral: CTA - Cardiovascular Rhythm: regular Heart Sounds: Present: S1 & S2. Absent: gallop, rub Extremities: pulses intact, No edema, normal color, Full ROM - Gastrointestinal General gastrointestinal: Present: soft, non-tender, non-distended, normal bowel sounds - Integumentary Integumentary: clear, warm, dry - Musculoskeletal Musculoskeletal: 1, strength equal bilaterally - Neurologic Neurologic: moves all extremities - Psychiatric Psychiatric: memory intact, appropriate mood/affect, intact judgment & insight - Labs CBC & Chem 7: 09/20/16 06:03 09/20/16 06:03 Labs: Abnormal lab results 09/20/16 09/21/16 09/21/16 Range/Units 21:26 07:15 12:29 POC Glucose 318 H 300 H 356 H (70-105) 09/21/16 Range/Units 16:00 POC Glucose 341 H (70-105)
[2016-09-21] MEDS: LEVEMIR SUB-Q SCH (22:46)
[2016-09-22] MEDS: PROVENTIL IH SCH ×3 (08:05→20:24)
[2016-09-22] MEDS: NOVOLOG SUB-Q SCH ×4 (08:43→23:23)
[2016-09-22] MEDS: APRESOLINE PO SCH ×3 (09:00→21:51)
[2016-09-22] MEDS: ASPIRIN PO SCH (10:00)
[2016-09-22] MEDS: LOVENOX SUB-Q SCH (10:25)
[2016-09-22] MEDS: NORVASC PO SCH (10:25)
[2016-09-22] MEDS: COREG PO SCH ×2 (10:35→21:51)
[2016-09-22] MEDS: TYLENOL PO PRN (16:40)
[2016-09-22] MEDS: ULTRAM PO PRN ×2 (16:40→21:50)
--- NOTE | 2016-09-22 19:24 | Progress Note ---
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 Continue with patient on oxygen to maintain sats equilibrated 94%. continue with Aspirin 325 mg daily, atorvastatin 40 mg daily at bedtime, Lovenox 40 mg subcutaneous daily, Echocardiogram showed LVEF of 55-60 with diastolic dysfunction.continue with PT OT ST treatment Optimize glycemic control with sliding scale insulin. Increase basal insulin Consistent carbohydrate diet Optimize blood pressure control with oral antihypertensives using hydralazine lisinopril and amlodipine. Add clonidine Continue with DuoNeb Leukocytosis likely secondary to IV Solu-Medrol. She has no fever. Further evaluate for sleep apnea on outpatient basis Diet-controlled for morbid obesity. Dietary consult was obtained. DVT prophylaxis with Lovenox and GI prophylaxis with Protonix Spent 25min minutes during this admission process and this was emergent, the patient. - Patient Problems (1) Hypertension Onset Date: 02/26/14 Current Visit: Yes Status: Acute Qualifiers: Hypertension type: H (2) Slurred speech Current Visit: Yes Status: Acute (3) Morbid obesity with BMI of 50.0-59.9, adult Onset Date: 07/16/14 Current Visit: Yes Status: Chronic (4) Diabetes Onset Date: 02/26/14 Current Visit: No Status: Chronic Qualifiers: Diabetes mellitus type: type 2 Diabetes mellitus complication status: with circulatory complication Diabetes mellitus complication detail: D Diabetic retinopathy severity: D Proliferative retinopathy type: P Diabetes mellitus macular edema: D Diabetes mellitus long term care administrator insulin use: D Laterality: L Chronic kidney disease stage: C (5) Small vessel disease, cerebrovascular Onset Date: 07/17/14 Current Visit: No Status: Chronic Subjective Date of service: 09/22/16 Principal diagnosis: acute on chronic ischemic stroke, T2DM, malignant HTN Interval history: DIEGO resolved. Still dysarthric with pain in both legs. Objective - Constitutional Vitals: Vital Signs - 12hr 09/22/16 09/22/16 09/22/16 08:05 08:15 08:18 Temperature 97.5 F L Pulse Rate 69 Pulse Rate [ 65 75 Anterior Bilateral Throughout] Respiratory 16 Rate Respiratory 18 20 Rate [Anterior Bilateral Throughout] Blood Pressure 182/90 O2 Sat by Pulse 96 96 Oximetry 09/22/16 09/22/16 09/22/16 13:46 13:56 14:00 Temperature Pulse Rate 73 Pulse Rate [ 87 88 Anterior Bilateral Throughout] Respiratory Rate Respiratory 18 20 Rate [Anterior Bilateral Throughout] Blood Pressure O2 Sat by Pulse Oximetry 09/22/16 16:40 Temperature 97.9 F Pulse Rate 87 Pulse Rate [ Anterior Bilateral Throughout] Respiratory 16 Rate Respiratory Rate [Anterior Bilateral Throughout] Blood Pressure 144/73 O2 Sat by Pulse 96 Oximetry General appearance: Present: no acute distress, well-nourished - EENT Eyes: PERRL, EOM intact - Neck Neck: supple, normal ROM - Respiratory Respiratory effort: normal Respiratory: bilateral: CTA - Cardiovascular Rhythm: regular Heart Sounds: Present: S1 & S2. Absent: gallop, rub Extremities: pulses intact, No edema, normal color, Full ROM - Gastrointestinal General gastrointestinal: Present: soft, non-tender, non-distended, normal bowel sounds - Integumentary Integumentary: clear, warm, dry - Musculoskeletal Musculoskeletal: 1, strength equal bilaterally - Neurologic Neurologic: moves all extremities - Psychiatric Psychiatric: memory intact, appropriate mood/affect, intact judgment & insight - Labs CBC & Chem 7: 09/20/16 06:03 09/20/16 06:03 Labs: Abnormal lab results 09/21/16 09/22/16 09/22/16 Range/Units 21:20 07:24 13:58 POC Glucose 382 H 362 H 433 H (70-105) 09/22/16 Range/Units 17:58 POC Glucose 403 H (70-105)
[2016-09-22] MEDS: LEVEMIR SUB-Q SCH (23:27)
[2016-09-23] MEDS: APRESOLINE PO SCH ×3 (08:03→21:38)
[2016-09-23] MEDS: NOVOLOG SUB-Q SCH ×4 (08:19→21:56)
[2016-09-23] MEDS: PROVENTIL IH SCH ×3 (08:20→19:32)
[2016-09-23] MEDS: LOVENOX SUB-Q SCH (13:02)
[2016-09-23] MEDS: NORVASC PO SCH (13:03)
[2016-09-23] MEDS: COREG PO SCH ×2 (13:03→21:38)
[2016-09-23] MEDS: ASPIRIN PO SCH (13:20)
[2016-09-23] MEDS: TYLENOL PO PRN (13:21)
--- NOTE | 2016-09-23 13:44 | Consultation ---
History of Present Illness - Reason for Consult Consult date: 09/23/16 STROKE - History of Present Illness STILL VERY DIZZY AND OFF BALENCE BUT VERY AKLERT SPEECH DYSARTHRIA LIKE THAT SEEN IN [facility] [facility] Past History Past Medical History: COPD, hypertension, stroke Past Surgical History: No surgical history Social history: single. denies: smoking, alcohol abuse, prescription drug abuse Family history: denies: hypertension Medications and Allergies Allergies Allergy/AdvReac Type Severity Reaction Status Date / Time No Known Allergies Allergy Unverified 02/25/14 14:49 Home Medications Medication Instructions Recorded Confirmed Last Taken Type ALBUTEROL NEB's [Proventil 0.083% 2.5 mg IH Q6HRT #100 nebu 03/09/16 09/18/16 Rx NEBS] Hydralazine HCl [Apresoline TAB] 100 mg PO BID #60 tablet 03/09/16 09/18/16 Rx Hydrochlorothiazide [HCTZ] 25 mg PO QDAY 09/18/16 09/18/16 09/17/16 History Insulin Aspart [NovoLOG Flexpen] 8 unit SQ TID 09/18/16 09/18/16 09/17/16 History Insulin Glargine,Hum.rec.anlog 25 unit SQ QHS 09/18/16 09/18/16 09/17/16 History [Lantus Solostar] Active Meds: Active Medications Acetaminophen (Tylenol) 650 mg PO Q4H PRN PRN Reason: Pain, Mild (1-3) Last Admin: 09/23/16 13:21 Dose: 650 mg Albuterol (Proventil) 2.5 mg IH TIDRT [facility] Last Admin: 09/23/16 08:20 Dose: 2.5 mg Albuterol (Proventil) 2.5 mg IH Q4HRT PRN PRN Reason: Shortness Of Breath Amlodipine Besylate (Norvasc) 10 mg PO QDAY [facility] Last Admin: 09/23/16 13:03 Dose: 10 mg Aspirin (Aspirin) 325 mg PO QDAY [facility] Last Admin: 09/23/16 13:20 Dose: 325 mg Atorvastatin Calcium (Lipitor) 40 mg PO QHS [facility] Last Admin: 09/22/16 21:50 Dose: 40 mg Carvedilol (Coreg) 25 mg PO BID [facility] Last Admin: 09/23/16 13:03 Dose: 25 mg Dextrose (D50w (25gm)) 50 ml IV PRN PRN PRN Reason: Hypoglycemia Enoxaparin Sodium (Lovenox) 40 mg SUB-Q DAILY [facility] Last Admin: 09/23/16 13:02 Dose: 40 mg Hydralazine HCl (Apresoline) 100 mg PO TID [facility] Last Admin: 09/23/16 13:06 Dose: 100 mg Insulin Aspart (Novolog) 0 units SUB-Q ACHS [facility] PRN Reason: Protocol Last Admin: 09/23/16 13:04 Dose: 10 units Insulin Detemir (Levemir) 40 units SUB-Q QHS [facility] Last Admin: 09/22/16 23:27 Dose: 40 units Methylprednisolone Sodium Succinate (Solu-Medrol) 40 mg IV Q12H [facility] Last Admin: 09/23/16 04:04 Dose: 40 mg Morphine Sulfate (Morphine) 2 mg IV Q4H PRN PRN Reason: Pain, Moderate (4-6) Last Admin: 09/23/16 04:04 Dose: 2 mg Tramadol HCl (Ultram) 50 mg PO Q6H PRN PRN Reason: Pain, Moderate (4-6) Last Admin: 09/22/16 21:50 Dose: 50 mg Exam - Constitutional Vitals: Temp Pulse Resp BP Pulse Ox 97.5 F L 85 20 137/68 94 09/23/16 08:00 09/23/16 08:00 09/23/16 08:00 09/23/16 08:00 09/23/16 08:00 Results - Labs CBC & Chem 7: 09/20/16 06:03 09/20/16 06:03 Labs: Abnormal lab results 09/22/16 09/22/16 09/22/16 Range/Units 13:58 15:57 17:58 POC Glucose 433 H 399 H 403 H (70-105) 09/22/16 Range/Units 22:57 POC Glucose 256 H (70-105)
[2016-09-23] MEDS: ULTRAM PO PRN (18:56)
[2016-09-23] MEDS: LEVEMIR SUB-Q SCH (21:38)
[2016-09-24] MEDS: ULTRAM PO PRN ×2 (02:43→17:12)
[2016-09-24] MEDS: PROVENTIL IH SCH ×3 (08:04→20:36)
[2016-09-24] MEDS: NOVOLOG SUB-Q SCH ×4 (09:02→22:09)
[2016-09-24] MEDS: COREG PO SCH ×2 (09:03→22:08)
[2016-09-24] MEDS: NORVASC PO SCH (09:04)
[2016-09-24] MEDS: LOVENOX SUB-Q SCH (09:04)
[2016-09-24] MEDS: APRESOLINE PO SCH ×3 (09:04→22:08)
[2016-09-24] MEDS: ASPIRIN PO SCH (09:04)
[2016-09-24] MEDS: LEVEMIR SUB-Q SCH (22:08)
[2016-09-24] MEDS: TYLENOL PO PRN (22:14)
[2016-09-25] MEDS: ULTRAM PO PRN (03:59)
[2016-09-25 04:58] VITALS: BP 136/79
[2016-09-25] MEDS: APRESOLINE PO SCH ×2 (08:00→13:21)
[2016-09-25] MEDS: PROVENTIL IH SCH ×2 (08:11→13:34)
[2016-09-25] MEDS: NOVOLOG SUB-Q SCH ×2 (08:52→11:30)
[2016-09-25] MEDS: COREG PO SCH (09:09)
[2016-09-25] MEDS: ASPIRIN PO SCH (09:09)
[2016-09-25] MEDS: NORVASC PO SCH (09:09)
[2016-09-25] MEDS: LOVENOX SUB-Q SCH (09:09)
--- NOTE | 2016-09-25 10:42 | Discharge Summary ---
Providers - Providers Date of Admission: 09/18/16 19:21 Date of discharge: 09/25/16 Attending physician: ELLEN ORELLANA 09/19/16 09:34 Consult to Physician [CONS] Routine Consulting Provider: GRACIELA HODGE Reason For Exam: stroke Place consult to:: fawad Notified:: PLEASE CALL MD IN AM Phone number called:: [phone] Was contact made?: Yes Time called:: 13:37 09/20/16 10:53 Speech Therapy Evaluation and Treat [CONS] Routine Reason For Exam: cva 09/20/16 10:54 Occupational Therapy Evaluate and Treat [CONS] Routine Comment: Reason For Exam: cva Physical Therapy Evaluation and Treat [CONS] Routine Comment: Reason For Exam: cva Primary care physician: ORNAMENTAL PAINTER Hospitalization Reason for admission: acute stroke, DM, HTN Condition: Good Pertinent studies: CT head, ECHO Procedures: none Hospital course: Patient is a 56-year-old lady who was a history of hypertension, COPD, prior stroke presented emergency Department on account of severe dysmetria. Had no lateralizing weakness. CT scan of the brain was unremarkable. MRI was recommended. The patient's body habitus could not fit into an MRI admission. Neurology consult was obtained. After evaluation on a brainstem acute stroke was diagnosed. Patient admission was commenced on aspirin, atorvastatin, PT OT ST and oxygen. Patient still has dysmetria that has improved slightly. Patient was noted to have his severely elevated blood pressure was controlled with oral antihypertensives medication. Was continued on medical dilators and Solu-Medrol for COPD. That was mellitus controlled with sliding scale insulin. However IV Solu-Medrol attempt to increase the level of the blood sugar. This was discontinued. Patient's dysmetria has improved and is therefore been discharged to follow primary care physician and to continue follow-up with neurologist. Patient has a history of noncompliance appears well advised to improve compliance office visit medication. Disposition: TO HOME OR SELFCARE - Discharge Diagnoses (1) Hypertension Status: Acute Qualifiers: Hypertension type: H (2) Slurred speech Status: Acute (3) Morbid obesity with BMI of 50.0-59.9, adult Status: Chronic (4) Diabetes Status: Chronic Qualifiers: Diabetes mellitus type: type 2 Diabetes mellitus complication status: with circulatory complication Diabetes mellitus complication detail: D Diabetic retinopathy severity: D Proliferative retinopathy type: P Diabetes mellitus macular edema: D Diabetes mellitus chick sexer insulin use: D Laterality: L Chronic kidney disease stage: C (5) Small vessel disease, cerebrovascular Status: Chronic Core Measure Documentation - Palliative Care Palliative Care/ Comfort Measures: Not Applicable - Core Measures Any of the following diagnoses?: stroke - VTE Discharge Requirements Deep Vein Thrombosis/Pulmonary Embolism Present on Admission: No Has pt received <5 days of overlap therapy or INR<2.0: No Anticoagulant overlap therapy prescribed at discharge: No Contraindication No Overlap Therapy order at DC: Not Indicated - Stroke Discharge Requirements Statin for LDL = or >70 mg/dl on DC: Yes (had no DVT) Anticoag for atrial fib/atrial flutter: Not Applicable Antithrombotic for ischemic stroke: Yes Stroke additional comments: Pt will continue with speech therapy on out pt basis Exam - Constitutional Vitals: Temp Pulse Resp BP Pulse Ox 98.4 F 76 18 136/79 96 09/25/16 04:55 09/25/16 08:12 09/25/16 08:12 09/25/16 04:55 09/25/16 04:55 General appearance: Present: obese - EENT Eyes: Present: PERRL - Neck Neck: Present: supple, normal ROM - Respiratory Respiratory effort: normal Respiratory: bilateral: CTA - Cardiovascular Heart Sounds: Present: S1 & S2. Absent: rub, click - Extremities Extremities: pulses symmetrical, No edema Peripheral Pulses: within normal limits - Abdominal General gastrointestinal: Present: soft, non-tender, non-distended, normal bowel sounds - Integumentary Integumentary: Present: clear, warm, dry - Musculoskeletal Musculoskeletal: gait normal, strength equal bilaterally - Psychiatric Psychiatric: appropriate mood/affect, intact judgment & insight - Neurologic Neurologic: CNII-XII intact, moves all extremities, other (dysmetria) Plan Activity: advance as tolerated Weight Bearing Status: Weight Bear as Tolerated Diet: low salt, diabetic Special Instructions: other Durable Medical Equipment Needed Upon Discharge: Cane, other (speech therapist on out pt basis) Follow up with: PRIMARY CARE, [Primary Care Provider] - 3-5 Days Prescriptions: amLODIPine [Norvasc] 10 mg PO QDAY #30 tablet Aspirin [Aspirin TAB] 325 mg PO QDAY #60 tablet AtorvaSTATin [Lipitor] 40 mg PO QHS #30 tablet Carvedilol [Coreg] 25 mg PO BID #30 tablet hydrALAZINE [Apresoline TAB] 100 mg PO TID #90 tab Hydrochlorothiazide [HCTZ] 25 mg PO QDAY #30 tablet Insulin Aspart [NovoLOG Flexpen] 8 unit SQ TID #100 insuln.pen Insulin Detemir [Levemir] 40 units SUB-Q QHS #300 units
== END 2016-09-25 15:18 | disposition home or self-care (01) | DRG 65 ==
LOC: ED 14:10 → 4A 19:21
PROVIDERS: ADMIT Family Medicine; ATTEND Family Medicine
DX: I63.9 Cerebral infarction, unspecified (principal); Z68.43 Body mass index [BMI] 50.0-59.9, adult; I16.1 Hypertensive emergency; G81.91 Hemiplegia, unspecified affecting right dominant side; J44.9 Chronic obstructive pulmonary disease, unspecified; D72.829 Elevated white blood cell count, unspecified; E66.01 Morbid (severe) obesity due to excess calories; E11.9 Type 2 diabetes mellitus without complications; I11.0 Hypertensive heart disease with heart failure; I50.9 Heart failure, unspecified; F41.9 Anxiety disorder, unspecified; R47.1 Dysarthria and anarthria; R13.10 Dysphagia, unspecified; G47.30 Sleep apnea, unspecified; Z90.49 Acquired absence of other specified parts of digestive tract; Z91.14 Patient's other noncompliance with medication regimen
CPT/HCPCS: 36415; 70450; 71010; 80048; 80053; 81001; 82962; 83519; 83735; 83880; 84100; 84484; 85025; 85610; 85670; 85730; 93005; 93010; 93306; 94640; 94644; 94760; 99285; A9270-GY; G8978-GP; G8979-GP; G8980-GP; G8987-GO; G8988-GO; G8989-GO; G8996-GN; G8997-GN; G8998-GN; J0360; J1650; J1815; J1818; J2060; J2270; J2765; J2920; J2930

== ENCOUNTER 2017-01-20 13:27 | Inpatient (IN) | payer MEDICARE ==
[2017-01-20 15:44] LABS: Basophils % (Auto) 1.3 % (0.0-1.8); Eosinophils % (Auto) 1.7 % (0.0-4.3); Mean Corpuscular HGB Conc 31 % (30-34); Mean Corpuscular Hemoglobin 26 pg (28-32); Mean Corpuscular Volume 85 fl (79-97); Platelet Count 340 K/mm3 (140-440); Red Blood Count 4.94 M/mm3 (3.65-5.03); Red Cell Distribution Width 15.6 % (13.2-15.2); White Blood Count 13.7 K/mm3 (4.5-11.0)
[2017-01-20 15:59] LABS: Anion Gap 18 mmol/L; BUN/Creatinine Ratio 15; Blood Urea Nitrogen 12 mg/dL (7-17); Calcium 9.9 mg/dL (8.4-10.2); Carbon Dioxide 27 mmol/L (22-30); Chloride 101.2 mmol/L (98-107); Glucose 167 mg/dL (65-100); Potassium 3.7 mmol/L (3.6-5.0); Sodium 142 mmol/L (137-145)
[2017-01-20 16:04] LABS: Hematocrit 42.2 % (30.3-42.9); Hemoglobin 12.9 gm/dl (10.1-14.3)
--- NOTE | 2017-01-20 16:09 | XRay Report ---
FINAL REPORT PROCEDURE: XR CHEST ROUTINE 2V TECHNIQUE: PA and lateral chest radiographs were obtained. CPT 35037 HISTORY: Shortness of breath COMPARISON: No prior studies are available for comparison. FINDINGS: Heart: Normal contour. Mediastinum/Vessels: Normal contour. Lungs/Pleural space: No infiltrate, effusion, or pneumothorax. Bony thorax: No acute osseous abnormality. Other: IMPRESSION: No pulmonary infiltrate is identified.
--- NOTE | 2017-01-20 16:10 | Emergency Department Report ---
HPI - General Chief Complaint: Dyspnea/Respdistress Time Seen by Provider: 01/20/17 16:01 - HPI HPI: This is a 57-year-old -[place] female presents to the emergency department by EMS from home with a three-day history of progressively worsening shortness of breath. She has an occasional dry cough that is worse at night and feels like she has been wheezing. She says that she has a past medical history that includes hypertension and insulin-dependent diabetes. The records from her PCP, Dr. Mike, show that she also has a history of a previous stroke , COPD, and is usually noncompliant with medication and follow-up. She also appears to have a more remote history of alcohol and prescription drug abuse. She has not taken anything for her symptoms by presentation. She was given 5 mg of albuterol in route by EMS. No recent travel or sick contacts at home. ED Past Medical Hx - Past Medical History Hx Hypertension: Yes Hx Heart Attack/AMI: No Hx Congestive Heart Failure: No Hx Diabetes: Yes Hx Deep Vein Thrombosis: No Hx Pulmonary Embolism: No Hx Liver Disease: No Hx Renal Disease: No Hx Sickle Cell Disease: No Hx Arthritis: No Hx Seizures: No Hx Kidney Stones: No Hx Asthma: Yes Hx COPD: No Hx Tuberculosis: No Hx Dementia: No Hx HIV: No Additional medical history: high cholesterol - Surgical History Hx Coronary Stent: No Hx Open Heart Surgery: No Hx Pacemaker: No Hx Internal Defibrillator: No Hx Cholecystectomy: Yes Hx Appendectomy: Yes Hx Breast Surgery: No - Social History Smoking Status: Never Smoker - Medications Home Medications: Home Medications Medication Instructions Recorded Confirmed Last Taken Type ALBUTEROL NEB's [Proventil 0.083% 2.5 mg IH Q4HRT PRN #100 nebu 09/25/16 Unknown Rx NEBS] Acetaminophen [Acetaminophen TAB] 650 mg PO Q4H PRN #90 tablet 09/25/16 Unknown Rx Aspirin [Aspirin TAB] 325 mg PO QDAY #60 tablet 09/25/16 Unknown Rx AtorvaSTATin [Lipitor] 40 mg PO QHS #30 tablet 09/25/16 Unknown Rx Carvedilol [Coreg] 25 mg PO BID #30 tablet 09/25/16 Unknown Rx Hydrochlorothiazide [HCTZ] 25 mg PO QDAY #30 tablet 09/25/16 Unknown Rx Insulin Aspart [NovoLOG Flexpen] 8 unit SQ TID #100 insuln.pen 09/25/16 Unknown Rx Insulin Detemir [Levemir] 40 units SUB-Q QHS #300 units 09/25/16 Unknown Rx amLODIPine [Norvasc] 10 mg PO QDAY #30 tablet 09/25/16 Unknown Rx hydrALAZINE [Apresoline TAB] 100 mg PO TID #90 tab 09/25/16 Unknown Rx ED Review of Systems ROS: Stated complaint: DIFF BREATHING Other details as noted in HPI Comment: All other systems reviewed and negative Constitutional: denies: chills, fever Eyes: denies: eye pain, eye discharge, vision change ENT: denies: ear pain, throat pain Respiratory: cough, shortness of breath, wheezing Cardiovascular: denies: chest pain, palpitations Gastrointestinal: denies: abdominal pain, nausea, diarrhea Genitourinary: denies: urgency, dysuria, discharge Musculoskeletal: denies: back pain, joint swelling, arthralgia Skin: denies: rash, lesions Neurological: denies: headache, weakness, paresthesias Physical Exam - Physical Exam Vital Signs: Vital Signs 01/20/17 14:58 Temperature 97.5 F L Pulse Rate 88 Respiratory 22 Rate Blood Pressure 234/122 O2 Sat by Pulse 89 Oximetry Physical Exam: GENERAL: The patient is well-developed well-nourished. HENT: Normocephalic. Atraumatic. Patient has moist mucous membranes. EYES: Extraocular motions are intact. Pupils equal reactive to light bilaterally. NECK: Supple. Trachea is midline. CHEST/LUNGS: Mild wheezing throughout the chest. There is mild tachypnea but no excessive muscle use. There is no respiratory distress noted. HEART/CARDIOVASCULAR: Regular. There is no tachycardia. There is no gallop rub or murmur. ABDOMEN: Abdomen is soft, nontender. Patient has normal bowel sounds. Severely morbidly obese. SKIN: Skin is warm and dry. NEURO: The patient is awake, alert, and oriented. The patient is cooperative. The patient has no focal neurologic deficits. The patient has normal speech. MUSCULOSKELETAL: There is no tenderness or deformity. There is no limitation range of motion. There is no evidence of acute injury. ED Course Vital Signs 01/20/17 14:58 Temperature 97.5 F L Pulse Rate 88 Respiratory 22 Rate Blood Pressure 234/122 O2 Sat by Pulse 89 Oximetry - ABG Interpretation Ph: 7.336 PCO2: 60 PO2: 84 Bicarbonate: 32 Interpretation: metabolic acidosis ED Medical Decision Making - Lab Data Result diagrams: 01/20/17 15:18 01/20/17 15:18 - Radiology Data Radiology results: image reviewed interpreted by me: Chest x-ray does not show any acute process. There are no pleural effusions, obvious pneumonia and there is no pneumothorax. - Medical Decision Making 57-year-old female presents with a few days of shortness of breath. She does have some bronchospasm on physical exam. Negative for PE and unlikely to be CHF given the labs. Chest x-ray does not show any pneumonia or any other acute process. However she does have some continued hypoxia but is stable with some supplemental oxygen at this time. We will continue to monitor her. I spoke to Dr. Walker, flood control engineer for Dr. Mike, and the patient has been accepted to their service and they have asked for MedSurg floor, 40 mg Solu-Medrol every 8 hours and when necessary albuterol. - Differential Diagnosis COPD, CHF, PE, Pneumonia Critical Care Time: No Critical care attestation.: If time is entered above; I have spent that time in minutes in the direct care of this critically ill patient, excluding procedure time. ED Disposition Clinical Impression: Hypertensive urgency, Morbid obesity with BMI of 50.0-59.9, adult, COPD exacerbation Dyspnea Qualifiers: Dyspnea type: shortness of breath Qualified Code(s): R06.02 - Shortness of breath Disposition: OP ADMIT IP TO THIS HOSP Is pt being admited?: Yes Condition: Stable Instructions: Chronic Bronchitis (ED) Referrals: PRIMARY CARE, [Primary Care Provider] - 3-5 Days Time of Disposition: 17:28
[2017-01-20 16:29] LABS: ISTAT Base Excess 6; ISTAT PCO2 59.8 (35-45); ISTAT PH 7.336 (7.35-7.45); ISTAT PO2 84 (80-105); ISTAT SO2 95; ISTAT TCO2 34
[2017-01-20] MEDS ORDERED: APRESOLINE IV ONE (17:06)
[2017-01-20] MEDS ORDERED: PROVENTIL IH ONE (17:30)
[2017-01-20] MEDS: PROVENTIL IH SCH ×2 (19:07→19:34)
[2017-01-20] MEDS ORDERED: MORPHINE IV ONE (19:28)
[2017-01-20] MEDS ORDERED: NORCO 5/325 PO ONE (20:16)
[2017-01-20] MEDS ORDERED: NORCO 5/325 ONE (20:22)
--- NOTE | 2017-01-20 23:30 | History and Physical Report ---
History of Present Illness Date of examination: 01/20/17 Date of admission: 01/20/17 17:28 Chief complaint: Shortness of breath Cough Generalized weakness History of present illness: 57 year old patient of Dr Mike for whom Im covering presented via the emergency room with complaint of progressive shortness of breath , pooly productive cough as well as genralized weakness ongoing for the past three days .Patient has history of COPD ,hypertension ,and Type 2 Diabetes and and has multiple hospitalization on account of exacerbation of COPD most recently a few months ago . [facility] . Cough and shortness of breath got progressively worse today and thus was brought to the ER .No associated chest pain and no fever but has been getting progressively weak . Past History Past Medical History: COPD, diabetes Family history: diabetes, hypertension Medications and Allergies Allergies Allergy/AdvReac Type Severity Reaction Status Date / Time No Known Allergies Allergy Unverified 02/25/14 14:49 Home Medications Medication Instructions Recorded Confirmed Last Taken Type ALBUTEROL NEB's [Proventil 0.083% 2.5 mg IH Q4HRT PRN #100 nebu 09/25/16 Unknown Rx NEBS] Acetaminophen [Acetaminophen TAB] 650 mg PO Q4H PRN #90 tablet 09/25/16 Unknown Rx Aspirin [Aspirin TAB] 325 mg PO QDAY #60 tablet 09/25/16 Unknown Rx AtorvaSTATin [Lipitor] 40 mg PO QHS #30 tablet 09/25/16 Unknown Rx Carvedilol [Coreg] 25 mg PO BID #30 tablet 09/25/16 Unknown Rx Hydrochlorothiazide [HCTZ] 25 mg PO QDAY #30 tablet 09/25/16 Unknown Rx Insulin Aspart [NovoLOG Flexpen] 8 unit SQ TID #100 insuln.pen 09/25/16 Unknown Rx Insulin Detemir [Levemir] 40 units SUB-Q QHS #300 units 09/25/16 Unknown Rx amLODIPine [Norvasc] 10 mg PO QDAY #30 tablet 09/25/16 Unknown Rx hydrALAZINE [Apresoline TAB] 100 mg PO TID #90 tab 09/25/16 Unknown Rx Active Meds: Active Medications Acetaminophen (Tylenol) 650 mg PO Q4H PRN PRN Reason: Pain, Mild (1-3) Albuterol (Proventil) 2.5 mg IH Q4HRT [facility] Last Admin: 01/20/17 19:34 Dose: Not Given Amlodipine Besylate (Norvasc) 10 mg PO QDAY [facility] Aspirin (Aspirin) 325 mg PO QDAY [facility] Atorvastatin Calcium (Lipitor) 40 mg PO QHS [facility] Carvedilol (Coreg) 25 mg PO BID [facility] Heparin Sodium (Porcine) (Heparin) 5,000 unit SUB-Q Q8HR [facility] Hydralazine HCl (Apresoline) 100 mg PO TID [facility] Hydrochlorothiazide (Hctz) 25 mg PO QDAY [facility] Methylprednisolone Sodium Succinate (Solu-Medrol) 40 mg IV Q8H [facility] Review of Systems Constitutional: weight gain, anorexia, fatigue, chronic pain Cardiovascular: orthopnea, palpitations, edema, lightheadedness, shortness of breath, dyspnea on exertion, high blood pressure, leg edema Respiratory: cough, shortness of breath, dyspnea on exertion, sleep apnea, home oxygen Gastrointestinal: indigestion, early satiety Musculoskeletal: low back pain, limitation of motion, gait dysfunction Neurological: parathesias, numbness, lack of coordination, balance difficulties Endocrine: excessive thirst, polyuria, weight change, palpatations, high blood sugars Exam - Constitutional Vitals: Temp Pulse Resp BP Pulse Ox 97.5 F L 95 H 20 172/118 98 01/20/17 14:58 01/20/17 19:11 01/20/17 20:28 01/20/17 18:58 01/20/17 18:15 General appearance: Present: mild distress - Neck Neck: Present: supple - Respiratory Respiratory effort: labored Respiratory: bilateral: diminished, wheezing - Cardiovascular Heart Sounds: Present: S1 & S2 - Extremities Extremity abnormal: edema, pulses diminished - Abdominal General gastrointestinal: Present: soft, non-tender, non-distended, normal bowel sounds - Rectal Rectal Exam: deferred - Integumentary Integumentary: Present: warm - Musculoskeletal Musculoskeletal: generalized weakness - Psychiatric Psychiatric: appropriate mood/affect - Neurologic Neurologic: CNII-XII intact, moves all extremities Results - Labs CBC & Chem 7: 01/20/17 15:18 01/20/17 15:18 Labs: Abnormal lab results 01/20/17 01/20/17 01/20/17 Range/Units 15:18 15:18 16:27 WBC 13.7 H (4.5-11.0) K/mm3 MCH 26 L (28-32) pg RDW 15.6 H (13.2-15.2) % Baso # 0.2 H (0.0-0.1) K/mm3 Seg Neutrophils # 9.2 H (1.8-7.7) K/mm3 POC ABG pH 7.336 L (7.35-7.45) POC ABG pCO2 59.8 H (35-45) Glucose 167 H (65-100) mg/dL Assessment and Plan - Patient Problems (1) Type 2 diabetes mellitus without complications Current Visit: Yes Status: Acute (2) COPD exacerbation Current Visit: Yes Status: Acute (3) Dyspnea Current Visit: Yes Status: Acute Qualifiers: Dyspnea type: shortness of breath Qualified Code(s): R06.02 - Shortness of breath; R06.00 - Dyspnea, unspecified; R06.01 - Orthopnea (4) Morbid obesity with BMI of 50.0-59.9, adult Onset Date: 07/16/14 Current Visit: Yes Status: Chronic (5) Hypertension Onset Date: 02/26/14 Current Visit: No Status: Acute
[2017-01-20] MEDS: HEPARIN SUB-Q SCH (23:31)
[2017-01-20] MEDS ORDERED: D50W (25GM) Vial IV PRN (23:36)
[2017-01-21] MEDS: PROVENTIL IH SCH ×6 (00:16→20:06)
[2017-01-21] MEDS ORDERED: APRESOLINE IV PRN (02:58)
[2017-01-21] MEDS ORDERED: NORCO 5/325 PO ONE (03:01)
[2017-01-21] MEDS: HEPARIN SUB-Q SCH ×3 (07:28→22:37)
[2017-01-21] MEDS: APRESOLINE PO SCH ×3 (09:01→22:47)
[2017-01-21] MEDS: TYLENOL PO PRN ×4 (09:02→22:48)
[2017-01-21] MEDS ORDERED: NOVOLOG SUB-Q ONE (09:30)
[2017-01-21] MEDS: NOVOLOG SUB-Q SCH ×3 (09:30→18:01)
[2017-01-21] MEDS: COREG PO SCH ×2 (10:28→22:37)
[2017-01-21] MEDS: NORVASC PO SCH (10:28)
[2017-01-21] MEDS: ASPIRIN PO SCH (10:28)
[2017-01-21] MEDS: HCTZ PO SCH (10:40)
--- NOTE | 2017-01-21 13:19 | Progress Note ---
Assessment and Plan - Patient Problems (1) Type 2 diabetes mellitus without complications Current Visit: Yes Status: Acute Plan to address problem: Continue current long-acting insulin with sliding scale coverage for blood sugar greater than 200 (2) COPD exacerbation Current Visit: Yes Status: Acute Plan to address problem: Aerosol treatments, intravenous Solu-Medrol, O2 supplementation, monitor oxygenation closely (3) Dyspnea Current Visit: Yes Status: Acute Qualifiers: Dyspnea type: shortness of breath Qualified Code(s): R06.02 - Shortness of breath; R06.00 - Dyspnea, unspecified; R06.01 - Orthopnea Plan to address problem: Aerosol treatment as ordered follow-up pending labs to rule out any underlying infection (4) Morbid obesity with BMI of 50.0-59.9, adult Onset Date: 07/16/14 Current Visit: Yes Status: Chronic (5) Hypertension Onset Date: 02/26/14 Current Visit: No Status: Acute Qualifiers: Hypertension type: essential hypertension Qualified Code(s): I10 - Essential (primary) hypertension Plan to address problem: Continue on present antihypertensive therapy Subjective Date of service: 01/21/17 Principal diagnosis: COPD exacerbation with hypoxia Interval history: Patient feels better overall but still short of breath, no fever and denied chest pain, lower extremity swelling subsiding. Objective - Exam Narrative Exam: GENERAL: In moderate respiratory distress, mildly pale but not jaundiced, moderately obese HEENT: Normocephalic, mucous membranes moist pharynx is clear with no exudate or hemorrhage NECK: [No JVD, no thyroid enlargement and no lymphadenopathy.] CHEST poor air exchange with prolonged expiration bilateral scattered wheeze expiratory wheeze [No chest wall tenderness, percussion is normal, symmetrical chest wall.] HEART tachycardia. Second heart sounds only does no audible murmur ABDOMEN: [Abdomen is soft, nondistended, no guarding, no rebound tenderness, no masses palpable per abdomen, active bowel sounds.] SKIN: [Warm and dry, no rash.] NEURO: [Awake, alert, oriented x3, speech normal. Power 5/5 in all the extremities.] EXTREMITIES: Bilateral pitting edema up to mid leg, bilateral stasis dermatitis. Weak peripheral pulses no finger clubbing no cyanosis. - Constitutional Vitals: Vital Signs - 12hr 01/21/17 01/21/17 01/21/17 02:00 02:17 02:19 Temperature Pulse Rate Pulse Rate [ Throughout] Respiratory Rate Respiratory Rate [ Throughout] Blood Pressure 229/125 229/125 229/125 O2 Sat by Pulse 92 97 96 Oximetry 01/21/17 01/21/17 01/21/17 02:20 02:21 02:23 Temperature Pulse Rate Pulse Rate [ Throughout] Respiratory Rate Respiratory Rate [ Throughout] Blood Pressure 192/116 192/116 192/116 O2 Sat by Pulse 96 96 96 Oximetry 01/21/17 01/21/17 01/21/17 02:25 02:27 02:29 Temperature Pulse Rate Pulse Rate [ Throughout] Respiratory Rate Respiratory Rate [ Throughout] Blood Pressure 192/116 192/116 192/116 O2 Sat by Pulse 95 96 97 Oximetry 01/21/17 01/21/17 01/21/17 02:30 02:31 02:33 Temperature Pulse Rate Pulse Rate [ Throughout] Respiratory Rate Respiratory Rate [ Throughout] Blood Pressure 196/106 196/106 196/106 O2 Sat by Pulse 96 96 96 Oximetry 01/21/17 01/21/17 01/21/17 02:35 02:37 02:39 Temperature Pulse Rate Pulse Rate [ Throughout] Respiratory Rate Respiratory Rate [ Throughout] Blood Pressure 196/106 196/106 196/106 O2 Sat by Pulse 96 97 97 Oximetry 01/21/17 01/21/17 01/21/17 02:41 02:43 02:45 Temperature Pulse Rate Pulse Rate [ Throughout] Respiratory Rate Respiratory Rate [ Throughout] Blood Pressure 196/106 196/106 196/106 O2 Sat by Pulse 97 96 98 Oximetry 01/21/17 01/21/17 01/21/17 02:47 02:49 02:51 Temperature Pulse Rate Pulse Rate [ Throughout] Respiratory Rate Respiratory Rate [ Throughout] Blood Pressure 196/106 196/106 196/106 O2 Sat by Pulse 95 95 96 Oximetry 01/21/17 01/21/17 01/21/17 02:53 03:39 04:36 Temperature Pulse Rate 98 H Pulse Rate [ 91 H Throughout] Respiratory Rate Respiratory 18 Rate [ Throughout] Blood Pressure 196/106 192/116 O2 Sat by Pulse 98 Oximetry 01/21/17 01/21/17 01/21/17 04:40 05:30 05:31 Temperature Pulse Rate Pulse Rate [ 93 H Throughout] Respiratory Rate Respiratory 18 Rate [ Throughout] Blood Pressure 171/84 171/84 O2 Sat by Pulse 97 97 Oximetry 01/21/17 01/21/17 01/21/17 05:33 05:35 05:37 Temperature Pulse Rate Pulse Rate [ Throughout] Respiratory Rate Respiratory Rate [ Throughout] Blood Pressure 171/84 171/84 171/84 O2 Sat by Pulse 96 97 98 Oximetry 01/21/17 01/21/17 01/21/17 05:39 05:41 05:43 Temperature Pulse Rate Pulse Rate [ Throughout] Respiratory Rate Respiratory Rate [ Throughout] Blood Pressure 171/84 171/84 171/84 O2 Sat by Pulse 97 97 97 Oximetry 01/21/17 01/21/17 01/21/17 05:45 05:47 05:49 Temperature Pulse Rate Pulse Rate [ Throughout] Respiratory Rate Respiratory Rate [ Throughout] Blood Pressure 171/84 171/84 171/84 O2 Sat by Pulse 97 97 97 Oximetry 01/21/17 01/21/17 01/21/17 05:51 05:53 05:55 Temperature Pulse Rate Pulse Rate [ Throughout] Respiratory Rate Respiratory Rate [ Throughout] Blood Pressure 171/84 171/84 171/84 O2 Sat by Pulse 96 97 97 Oximetry 01/21/17 01/21/17 01/21/17 05:57 05:59 06:01 Temperature Pulse Rate Pulse Rate [ Throughout] Respiratory Rate Respiratory Rate [ Throughout] Blood Pressure 171/84 171/84 168/88 O2 Sat by Pulse 97 98 98 Oximetry 01/21/17 01/21/17 01/21/17 06:03 06:05 06:07 Temperature Pulse Rate Pulse Rate [ Throughout] Respiratory Rate Respiratory Rate [ Throughout] Blood Pressure 168/88 168/88 168/88 O2 Sat by Pulse 97 97 96 Oximetry 01/21/17 01/21/17 01/21/17 06:09 06:11 06:13 Temperature Pulse Rate Pulse Rate [ Throughout] Respiratory Rate Respiratory Rate [ Throughout] Blood Pressure 168/88 168/88 168/88 O2 Sat by Pulse 98 98 97 Oximetry 01/21/17 01/21/17 01/21/17 06:15 06:17 06:19 Temperature Pulse Rate Pulse Rate [ Throughout] Respiratory Rate Respiratory Rate [ Throughout] Blood Pressure 168/88 168/88 168/88 O2 Sat by Pulse 96 97 97 Oximetry 01/21/17 01/21/17 01/21/17 06:21 06:23 06:25 Temperature Pulse Rate Pulse Rate [ Throughout] Respiratory Rate Respiratory Rate [ Throughout] Blood Pressure 168/88 168/88 168/88 O2 Sat by Pulse 97 97 97 Oximetry 01/21/17 01/21/17 01/21/17 06:27 06:29 06:30 Temperature Pulse Rate Pulse Rate [ Throughout] Respiratory Rate Respiratory Rate [ Throughout] Blood Pressure 168/88 168/88 159/88 O2 Sat by Pulse 97 97 97 Oximetry 01/21/17 01/21/17 01/21/17 06:31 06:33 06:35 Temperature Pulse Rate Pulse Rate [ Throughout] Respiratory Rate Respiratory Rate [ Throughout] Blood Pressure 159/88 159/88 159/88 O2 Sat by Pulse 98 97 98 Oximetry 01/21/17 01/21/17 01/21/17 06:37 06:39 06:41 Temperature Pulse Rate Pulse Rate [ Throughout] Respiratory Rate Respiratory Rate [ Throughout] Blood Pressure 159/88 159/88 159/88 O2 Sat by Pulse 97 98 95 Oximetry 01/21/17 01/21/17 01/21/17 06:43 06:45 06:47 Temperature Pulse Rate Pulse Rate [ Throughout] Respiratory Rate Respiratory Rate [ Throughout] Blood Pressure 159/88 159/88 159/88 O2 Sat by Pulse 94 94 95 Oximetry 01/21/17 01/21/17 01/21/17 06:49 06:51 06:53 Temperature Pulse Rate Pulse Rate [ Throughout] Respiratory Rate Respiratory Rate [ Throughout] Blood Pressure 159/88 159/88 159/88 O2 Sat by Pulse 95 95 96 Oximetry 01/21/17 01/21/17 01/21/17 06:55 06:57 06:59 Temperature Pulse Rate Pulse Rate [ Throughout] Respiratory Rate Respiratory Rate [ Throughout] Blood Pressure 159/88 159/88 159/88 O2 Sat by Pulse 94 97 96 Oximetry 01/21/17 01/21/17 01/21/17 07:00 07:01 07:03 Temperature Pulse Rate Pulse Rate [ Throughout] Respiratory Rate Respiratory Rate [ Throughout] Blood Pressure 162/90 162/90 162/90 O2 Sat by Pulse 93 97 96 Oximetry 01/21/17 01/21/17 01/21/17 07:05 07:07 07:09 Temperature Pulse Rate Pulse Rate [ Throughout] Respiratory Rate Respiratory Rate [ Throughout] Blood Pressure 162/90 162/90 162/90 O2 Sat by Pulse 95 96 98 Oximetry 01/21/17 01/21/17 01/21/17 07:11 07:13 07:15 Temperature Pulse Rate Pulse Rate [ Throughout] Respiratory Rate Respiratory Rate [ Throughout] Blood Pressure 162/90 162/90 162/90 O2 Sat by Pulse 99 97 97 Oximetry 01/21/17 01/21/17 01/21/17 07:17 07:19 07:21 Temperature Pulse Rate Pulse Rate [ Throughout] Respiratory Rate Respiratory Rate [ Throughout] Blood Pressure 162/90 162/90 162/90 O2 Sat by Pulse 98 97 96 Oximetry 01/21/17 01/21/17 01/21/17 07:23 07:25 07:27 Temperature Pulse Rate Pulse Rate [ Throughout] Respiratory Rate Respiratory Rate [ Throughout] Blood Pressure 162/90 162/90 162/90 O2 Sat by Pulse 97 98 97 Oximetry 01/21/17 01/21/17 01/21/17 07:29 07:31 07:33 Temperature Pulse Rate Pulse Rate [ Throughout] Respiratory Rate Respiratory Rate [ Throughout] Blood Pressure 162/90 162/90 162/90 O2 Sat by Pulse 95 97 96 Oximetry 01/21/17 01/21/17 01/21/17 07:34 07:37 07:39 Temperature Pulse Rate Pulse Rate [ Throughout] Respiratory Rate Respiratory Rate [ Throughout] Blood Pressure 162/90 162/90 162/90 O2 Sat by Pulse 98 98 97 Oximetry 01/21/17 01/21/17 01/21/17 07:41 07:43 07:45 Temperature Pulse Rate Pulse Rate [ Throughout] Respiratory Rate Respiratory Rate [ Throughout] Blood Pressure 162/90 162/90 162/90 O2 Sat by Pulse 98 98 98 Oximetry 01/21/17 01/21/17 01/21/17 07:47 07:49 07:51 Temperature Pulse Rate Pulse Rate [ Throughout] Respiratory Rate Respiratory Rate [ Throughout] Blood Pressure 162/90 162/90 162/90 O2 Sat by Pulse 98 95 94 Oximetry 01/21/17 01/21/17 01/21/17 07:53 07:55 07:57 Temperature Pulse Rate Pulse Rate [ Throughout] Respiratory Rate Respiratory Rate [ Throughout] Blood Pressure 162/90 162/90 162/90 O2 Sat by Pulse 95 97 96 Oximetry 01/21/17 01/21/17 01/21/17 07:59 08:01 08:02 Temperature Pulse Rate Pulse Rate [ Throughout] Respiratory Rate Respiratory Rate [ Throughout] Blood Pressure 162/90 162/90 162/90 O2 Sat by Pulse 98 97 96 Oximetry 01/21/17 01/21/17 01/21/17 08:03 08:13 08:14 Temperature Pulse Rate Pulse Rate [ Throughout] Respiratory Rate Respiratory Rate [ Throughout] Blood Pressure 162/90 168/103 168/103 O2 Sat by Pulse 96 92 97 Oximetry 01/21/17 01/21/17 01/21/17 08:29 10:33 11:01 Temperature 98.0 F Pulse Rate 106 H Pulse Rate [ Throughout] Respiratory 22 Rate Respiratory Rate [ Throughout] Blood Pressure 160/84 O2 Sat by Pulse 94 96 95 Oximetry - Labs CBC & Chem 7: 01/20/17 15:18 01/20/17 15:18 Labs: Abnormal lab results 01/20/17 01/20/17 01/20/17 Range/Units 15:18 15:18 16:27 WBC 13.7 H (4.5-11.0) K/mm3 MCH 26 L (28-32) pg RDW 15.6 H (13.2-15.2) % Baso # 0.2 H (0.0-0.1) K/mm3 Seg Neutrophils # 9.2 H (1.8-7.7) K/mm3 POC ABG pH 7.336 L (7.35-7.45) POC ABG pCO2 59.8 H (35-45) Glucose 167 H (65-100) mg/dL POC Glucose (70-105) 01/21/17 01/21/17 Range/Units 08:27 12:43 WBC (4.5-11.0) K/mm3 MCH (28-32) pg RDW (13.2-15.2) % Baso # (0.0-0.1) K/mm3 Seg Neutrophils # (1.8-7.7) K/mm3 POC ABG pH (7.35-7.45) POC ABG pCO2 (35-45) Glucose (65-100) mg/dL POC Glucose 323 H 215 H (70-105)
[2017-01-21] MEDS: LEVEMIR SUB-Q SCH (22:37)
[2017-01-22] MEDS: PROVENTIL IH SCH ×4 (00:08→14:59)
[2017-01-22] MEDS: PERCOCET 5/325 PO PRN ×3 (02:23→18:00)
[2017-01-22] MEDS: HEPARIN SUB-Q SCH ×3 (05:48→22:23)
[2017-01-22] MEDS: NOVOLOG SUB-Q SCH ×3 (08:19→17:15)
[2017-01-22] MEDS: APRESOLINE PO SCH ×3 (08:19→22:21)
[2017-01-22] MEDS: HCTZ PO SCH (09:45)
[2017-01-22] MEDS: ASPIRIN PO SCH (09:45)
[2017-01-22] MEDS: COREG PO SCH ×2 (09:46→22:21)
[2017-01-22] MEDS: NORVASC PO SCH (09:46)
[2017-01-22] MEDS ORDERED: PROVENTIL IH PRN (12:14)
[2017-01-22] MEDS: DUONEB *Not for PRN Use IH SCH ×2 (14:47→21:25)
[2017-01-22] MEDS: LEVEMIR SUB-Q SCH (22:21)
[2017-01-23] MEDS: PERCOCET 5/325 PO PRN ×3 (03:08→18:23)
[2017-01-23] MEDS: HEPARIN SUB-Q SCH ×3 (06:23→22:14)
[2017-01-23] MEDS: APRESOLINE PO SCH ×3 (08:34→20:01)
[2017-01-23] MEDS: NOVOLOG SUB-Q SCH ×3 (08:34→17:54)
--- NOTE | 2017-01-23 09:40 | Progress Note ---
Assessment and Plan - Type 2 diabetes mellitus without complications continue wtih SSI, Consistent CHO diet, Lantus - COPD exacerbation Aerosol treatments, intravenous Solu-Medrol, O2 supplementation, monitor oxygenation closely - Dyspnea Aerosol treatment as ordered follow-up pending labs to rule out any underlying infection - Morbid obesity with BMI of 50.0-59.9, adult - Hypertension Continue on present antihypertensive therapy - Prior stroke with Dysarhtria: Contiu with ASA and statin - DVT and GI prophylaxis with Lovenox and Pepcid Subjective Date of service: 01/23/17 Principal diagnosis: COPD exacerbation with hypoxia Interval history: Still having difficluty in breathing. no fever Objective - Constitutional Vitals: Vital Signs - 12hr 01/23/17 07:56 Temperature 97.9 F Pulse Rate 84 Respiratory 24 Rate Blood Pressure 144/77 O2 Sat by Pulse 97 Oximetry General appearance: Present: no acute distress, well-nourished - EENT Eyes: PERRL, EOM intact - Neck Neck: supple, normal ROM - Respiratory Respiratory effort: normal Respiratory: bilateral: diminished - Cardiovascular Rhythm: regular Heart Sounds: Present: S1 & S2. Absent: gallop, rub Extremities: pulses intact, No edema, normal color, Full ROM - Gastrointestinal General gastrointestinal: Present: soft, non-tender, non-distended, normal bowel sounds - Integumentary Integumentary: clear, warm, dry - Musculoskeletal Musculoskeletal: 1, strength equal bilaterally - Neurologic Neurologic: moves all extremities, gait normal (dysarthria) - Psychiatric Psychiatric: memory intact, appropriate mood/affect, intact judgment & insight - Labs CBC & Chem 7: 01/20/17 15:18 01/20/17 15:18 Labs: Abnormal lab results 01/22/17 01/22/17 01/22/17 Range/Units 11:52 16:37 21:38 POC Glucose 305 H 371 H 330 H (70-105) 01/23/17 Range/Units 05:26 POC Glucose 320 H (70-105)
[2017-01-23] MEDS: DUONEB *Not for PRN Use IH SCH ×3 (10:07→20:51)
[2017-01-23] MEDS: NORVASC PO SCH (10:21)
[2017-01-23] MEDS: COREG PO SCH ×2 (10:21→22:13)
[2017-01-23] MEDS: HCTZ PO SCH (10:21)
[2017-01-23] MEDS: ASPIRIN PO SCH (10:21)
[2017-01-23 11:24] LABS: Basophils % (Auto) 0.2 % (0.0-1.8); Hematocrit 41.5 % (30.3-42.9); Hemoglobin 13.1 gm/dl (10.1-14.3); Mean Corpuscular HGB Conc 32 % (30-34); Mean Corpuscular Hemoglobin 27 pg (28-32); Mean Corpuscular Volume 85 fl (79-97); Platelet Count 356 K/mm3 (140-440); Red Blood Count 4.87 M/mm3 (3.65-5.03); Red Cell Distribution Width 15.5 % (13.2-15.2); White Blood Count 13.5 K/mm3 (4.5-11.0)
[2017-01-23 11:40] LABS: Calcium 10.7 mg/dL (8.4-10.2); Phosphorous 4.3 mg/dL (2.5-4.5)
[2017-01-23 11:41] LABS: Chloride 90.5 mmol/L (98-107)
[2017-01-23] MEDS: LEVEMIR SUB-Q SCH (22:15)
[2017-01-24] MEDS: PERCOCET 5/325 PO PRN ×2 (04:28→14:42)
[2017-01-24] MEDS: HEPARIN SUB-Q SCH ×3 (04:30→16:59)
[2017-01-24 06:42] LABS: Basophils % (Auto) 0.7 % (0.0-1.8); Hematocrit 39.5 % (30.3-42.9); Hemoglobin 12.6 gm/dl (10.1-14.3); Mean Corpuscular HGB Conc 32 % (30-34); Mean Corpuscular Hemoglobin 28 pg (28-32); Mean Corpuscular Volume 86 fl (79-97); Platelet Count 292 K/mm3 (140-440); Red Blood Count 4.58 M/mm3 (3.65-5.03); Red Cell Distribution Width 15.6 % (13.2-15.2); White Blood Count 10.2 K/mm3 (4.5-11.0)
[2017-01-24 07:05] LABS: Alanine Aminotransferase 13 units/L (7-56); Albumin 3.3 g/dL (3.9-5); Alkaline Phosphatase 75 units/L (35-129); Anion Gap 19 mmol/L; BUN/Creatinine Ratio 33; Bilirubin,Total < 0.20 mg/dL (0.1-1.2); Blood Urea Nitrogen 49 mg/dL (7-17); Calcium 10.1 mg/dL (8.4-10.2); Carbon Dioxide 25 mmol/L (22-30); Chloride 93.4 mmol/L (98-107); Potassium 5.1 mmol/L (3.6-5.0); Sodium 132 mmol/L (137-145); Total Protein 6.6 g/dL (6.3-8.2)
[2017-01-24 07:12] LABS: Glucose 502 mg/dL (65-100)
[2017-01-24] MEDS: NOVOLOG SUB-Q SCH ×2 (07:23→11:43)
[2017-01-24] MEDS: DUONEB *Not for PRN Use IH SCH ×2 (08:41→14:40)
[2017-01-24 09:36] VITALS: BP 130/80
[2017-01-24] MEDS: NORVASC PO SCH (09:36)
[2017-01-24] MEDS: COREG PO SCH (09:36)
[2017-01-24] MEDS: APRESOLINE PO SCH ×2 (09:36→14:49)
[2017-01-24] MEDS: ASPIRIN PO SCH (09:37)
[2017-01-24] MEDS: HCTZ PO SCH (09:38)
--- NOTE | 2017-01-24 09:42 | Progress Note ---
Assessment and Plan - Type 2 diabetes mellitus without complications continue wtih SSI, Consistent CHO diet, Lantus - COPD exacerbation Aerosol treatments, intravenous Solu-Medrol, O2 supplementation, monitor oxygenation closely - Dyspnea Aerosol treatment as ordered follow-up pending labs to rule out any underlying infection - Morbid obesity with BMI of 50.0-59.9, adult - Hypertension Continue on present antihypertensive therapy - Prior stroke with Dysarhtria: Contiu with ASA and statin - DVT and GI prophylaxis with Lovenox and Pepcid Subjective Date of service: 01/24/17 Principal diagnosis: COPD exacerbation with hypoxia Interval history: Still having difficulty in breathing. No fever. elevated Blood sugar Objective - Constitutional Vitals: Vital Signs - 12hr 01/23/17 01/23/17 01/24/17 22:13 23:00 07:54 Temperature 98.3 F Pulse Rate 86 Respiratory 19 Rate Blood Pressure 124/63 O2 Sat by Pulse 96 Oximetry 01/24/17 09:36 Temperature Pulse Rate Respiratory Rate Blood Pressure 130/80 O2 Sat by Pulse Oximetry General appearance: Present: no acute distress, well-nourished - EENT Eyes: PERRL, EOM intact Ears: bilateral: normal - Neck Neck: supple, normal ROM - Respiratory Respiratory effort: normal - Cardiovascular Rhythm: regular Heart Sounds: Present: S1 & S2. Absent: gallop, rub Extremities: pulses intact, No edema, normal color, Full ROM - Gastrointestinal General gastrointestinal: Present: soft, non-tender, non-distended, normal bowel sounds - Genitourinary Female genitourinary: normal - Integumentary Integumentary: clear, warm, dry - Musculoskeletal Musculoskeletal: 1, strength equal bilaterally - Neurologic Neurologic: moves all extremities - Psychiatric Psychiatric: memory intact, appropriate mood/affect, intact judgment & insight - Labs CBC & Chem 7: 01/24/17 06:03 01/24/17 06:03 Labs: Abnormal lab results 01/23/17 01/23/17 01/23/17 Range/Units 10:01 10:01 11:46 WBC 13.5 H (4.5-11.0) K/mm3 MCH 27 L (28-32) pg RDW 15.5 H (13.2-15.2) % Lymph % (Auto) 8.1 L (13.4-35.0) % Lymph # 1.1 L (1.2-5.4) K/mm3 Seg Neutrophils % 89.2 H (40.0-70.0) % Seg Neutrophils # 12.1 H (1.8-7.7) K/mm3 Sodium 133 L D (137-145) mmol/L Potassium (3.6-5.0) mmol/L Chloride 90.5 L (98-107) mmol/L BUN 41 H (7-17) mg/dL Creatinine 1.4 H D (0.7-1.2) mg/dL Glucose 422 H (65-100) mg/dL POC Glucose 375 H (70-105) Calcium 10.7 H (8.4-10.2) mg/dL Albumin (3.9-5) g/dL 01/23/17 01/23/17 01/24/17 Range/Units 16:37 21:31 05:22 WBC (4.5-11.0) K/mm3 MCH (28-32) pg RDW (13.2-15.2) % Lymph % (Auto) (13.4-35.0) % Lymph # (1.2-5.4) K/mm3 Seg Neutrophils % (40.0-70.0) % Seg Neutrophils # (1.8-7.7) K/mm3 Sodium (137-145) mmol/L Potassium (3.6-5.0) mmol/L Chloride (98-107) mmol/L BUN (7-17) mg/dL Creatinine (0.7-1.2) mg/dL Glucose (65-100) mg/dL POC Glucose 381 H 391 H 426 H (70-105) Calcium (8.4-10.2) mg/dL Albumin (3.9-5) g/dL 01/24/17 01/24/17 01/24/17 Range/Units 06:03 06:03 09:31 WBC (4.5-11.0) K/mm3 MCH (28-32) pg RDW 15.6 H (13.2-15.2) % Lymph % (Auto) 9.3 L (13.4-35.0) % Lymph # 0.9 L (1.2-5.4) K/mm3 Seg Neutrophils % 85.2 H (40.0-70.0) % Seg Neutrophils # 8.7 H (1.8-7.7) K/mm3 Sodium 132 L (137-145) mmol/L Potassium 5.1 H (3.6-5.0) mmol/L Chloride 93.4 L (98-107) mmol/L BUN 49 H (7-17) mg/dL Creatinine 1.5 H (0.7-1.2) mg/dL Glucose 502 H* (65-100) mg/dL POC Glucose 374 H (70-105) Calcium (8.4-10.2) mg/dL Albumin 3.3 L (3.9-5) g/dL
--- NOTE | 2017-01-24 09:46 | Discharge Summary ---
Providers - Providers Date of Admission: 01/20/17 17:28 Date of discharge: 01/24/17 Attending physician: ELLEN ORELLANA 01/22/17 13:58 Physical Therapy Evaluation and Treat [CONS] Routine Comment: Reason For Exam: Gait Dysfunction, limitation of motion 01/22/17 13:59 Occupational Therapy Evaluate and Treat [CONS] Routine Comment: Reason For Exam: limitation of motion 01/22/17 14:11 Speech Therapy Evaluation and Treat [CONS] Urgent Reason For Exam: Prior stroke, generalized weakness. Primary care physician: HOSPITAL SECURITY OFFICER Hospitalization Reason for admission: COPD exercetion Condition: Stable Pertinent studies: cxr Procedures: none Hospital course: 57 year old patient lady who is noncompliant with office visit, presented to the emergency room with complaint of progressive shortness of breath, productive cough as well as generalized weakness ongoing for the past three days. Patient has history of COPD, LENNOX and OHS, hypertension, and Type 2 Diabetes and has multiple hospitalization on account of exacerbation of COPD, most recently a few months ago. Patient stated that she has been compliant with her medications as well as diet. Cough and shortness of breath got progressively worse today and thus was brought to the ER .No associated chest pain and no fever but has been getting progressively weak. Was commenced on bronchodilator and oxygen, SSI and iv solumedrol. Symptoms improved and blood sugar improved. she is beeing discharge to f/u with PCP in 3 day and counselled on compliance with med and office visit so as to limit hospitalization Disposition: DC-01 TO HOME OR SELFCARE Time spent for discharge: 32 mins spend during this d/c process in discussing w / CM nurses and pt Core Measure Documentation - Palliative Care Palliative Care/ Comfort Measures: Not Applicable - Core Measures Any of the following diagnoses?: none Exam - Constitutional Vitals: Temp Pulse Resp BP Pulse Ox 98.3 F 86 19 130/80 96 01/24/17 07:54 01/23/17 22:13 01/24/17 07:54 01/24/17 09:36 01/23/17 23:00 General appearance: Present: no acute distress, well-nourished - EENT Eyes: Present: PERRL ENT: hearing intact, clear oral mucosa - Neck Neck: Present: supple, normal ROM - Respiratory Respiratory effort: normal Respiratory: bilateral: diminished - Cardiovascular Heart Sounds: Present: S1 & S2. Absent: rub, click - Extremities Extremities: pulses symmetrical, No edema Peripheral Pulses: within normal limits - Abdominal General gastrointestinal: Present: soft, non-tender, non-distended, normal bowel sounds - Integumentary Integumentary: Present: clear, warm, dry - Musculoskeletal Musculoskeletal: gait normal, strength equal bilaterally - Psychiatric Psychiatric: appropriate mood/affect, intact judgment & insight - Neurologic Neurologic: CNII-XII intact, moves all extremities Plan Activity: fall precautions Weight Bearing Status: Weight Bear as Tolerated Diet: diabetic Follow up with: PRIMARY CARE, [Primary Care Provider] - 3-5 Days Prescriptions: amLODIPine [Norvasc] 10 mg PO QDAY #30 tablet Aspirin [Aspirin TAB] 325 mg PO QDAY #60 tablet AtorvaSTATin [Lipitor] 40 mg PO QHS #30 tablet Carvedilol [Coreg] 25 mg PO BID #30 tablet hydrALAZINE [Apresoline TAB] 100 mg PO TID #90 tab Insulin Aspart [NovoLOG Flexpen] 10 unit SQ TID #100 insuln.pen Insulin Detemir [Levemir] 35 units SUB-Q QHS #100 units Insulin Detemir [Levemir] 40 units SUB-Q QHS #300 units Ipratropium/Albuterol Sulfate [DUONEB *Not for PRN Use*] 1 ampul IH TIDRT #100 ampul.neb oxyCODONE /ACETAMINOPHEN [Percocet 5/325 mg] 1 tab PO Q8H PRN #24 tablet PRN Reason: Pain, Moderate (4-6)
== END 2017-01-24 15:30 | disposition home or self-care (01) | DRG 189 ==
LOC: ED 13:27 → 3A 17:28
PROVIDERS: ADMIT Family Medicine; ATTEND Family Medicine
PROC: 4A033R1 Measurement of Arterial Saturation, Peripheral, Percutaneous Approach (ICD-10-PCS; principal; 2017-01-23)
DX: J96.20 Acute and chronic respiratory failure, unspecified whether with hypoxia or hypercapnia (principal); J44.1 Chronic obstructive pulmonary disease with (acute) exacerbation; Z68.43 Body mass index [BMI] 50.0-59.9, adult; I10 Essential (primary) hypertension; E66.01 Morbid (severe) obesity due to excess calories; R47.1 Dysarthria and anarthria; E11.9 Type 2 diabetes mellitus without complications; I16.0 Hypertensive urgency; G47.33 Obstructive sleep apnea (adult) (pediatric); Z79.4 Long term (current) use of insulin; Z90.49 Acquired absence of other specified parts of digestive tract; Z83.3 Family history of diabetes mellitus; Z82.49 Family history of ischemic heart disease and other diseases of the circulatory system; Z86.73 Personal history of transient ischemic attack (TIA), and cerebral infarction without residual deficits
CPT/HCPCS: 36415; 71020; 80048; 80053; 82803; 82962; 83735; 83880; 84100; 84484; 85025; 85379; 93005; 93010; 94640; 94760; 96372; 96374; 96375; A9270-GY; G8987-GO; G8988-GO; G8989-GO; G8996-GN; G8997-GN; G8998-GN; J0360; J1644; J1815; J1818; J2270; J2920; J2930

== ENCOUNTER 2017-08-17 12:30 | Inpatient (IN) | payer MEDICARE ==
[2017-08-17] MEDS ORDERED: DUONEB *Not for PRN Use IH ONE (13:19)
[2017-08-17] MEDS ORDERED: ASPIRIN PO ONE (13:20)
[2017-08-17] MEDS ORDERED: NORMODYNE IV ONE ×2 (13:22→14:15)
[2017-08-17 13:59] LABS: Basophils # (Auto) 0.1 K/mm3 (0.0-0.1); Basophils % (Auto) 0.9 % (0.0-1.8); Eosinophils # (Auto) 0.3 K/mm3 (0.0-0.4); Eosinophils % (Auto) 1.6 % (0.0-4.3); Hematocrit 40.1 % (30.3-42.9); Hemoglobin 12.4 gm/dl (10.1-14.3); Lymphocytes # (Auto) 2.6 K/mm3 (1.2-5.4); Lymphocytes % (Auto) 16.2 % (13.4-35.0); Mean Corpuscular HGB Conc 31 % (30-34); Mean Corpuscular Hemoglobin 26 pg (28-32); Mean Corpuscular Volume 82 fl (79-97); Platelet Count 360 K/mm3 (140-440); Red Blood Count 4.87 M/mm3 (3.65-5.03); Red Cell Distribution Width 15.7 % (13.2-15.2)
[2017-08-17 14:00] LABS: INR 0.89 (0.87-1.13)
[2017-08-17 14:01] LABS: Partial Thromboplastin Time 29.5 Sec. (24.2-36.6)
[2017-08-17 14:03] LABS: Alanine Aminotransferase 11 units/L (7-56); Albumin 3.5 g/dL (3.9-5)
[2017-08-17 14:07] LABS: Bilirubin,Direct < 0.2 mg/dL (0-0.2)
--- NOTE | 2017-08-17 14:22 | Emergency Department Report ---
ED General Adult HPI - General Chief complaint: High BP Stated complaint: CHEST PAIN Time Seen by Provider: 08/17/17 13:09 Source: patient, EMS Mode of arrival: Stretcher Limitations: No Limitations - History of Present Illness Initial comments: 7-year-old female who presented to Dr. Woodruff's office earlier today. She states that she was reassigned to a new Medicaid provider. She was found to be severely hypertensive. She states that she is chronically short of breath. She arrived with primary care physician's office via Medicaid transportation. She is on home O2. She is also on CPAP at night. She uses nebulized treatments. She has a history of severe hypertension and COPD. Patient's last admission was for exacerbation of COPD. She is type II diabetic. She had an echocardiogram in 2017 which noted an EF of 55-60%. She states she has chronic dyspnea and chronic leg edema. She does not complain of acute calf or thigh pain. She states she has chronic ankle pain with her swelling. She does not complain of chest pain. She was referred by the primary care physician above for management of her severe hypertension. - Related Data Previous Rx's Medication Instructions Recorded Last Taken Type Hydrochlorothiazide [HCTZ] 25 mg PO QDAY #30 tablet 09/25/16 Unknown Rx Aspirin [Aspirin TAB] 325 mg PO QDAY #60 tablet 01/24/17 Unknown Rx AtorvaSTATin [Lipitor] 40 mg PO QHS #30 tablet 01/24/17 Unknown Rx Carvedilol [Coreg] 25 mg PO BID #30 tablet 01/24/17 Unknown Rx Detemir (Nf) [Levemir (Nf)] 35 units SUB-Q QHS #100 units 01/24/17 Unknown Rx Ipratropium/Albuterol Sulfate 1 ampul IH TIDRT #100 ampul.neb 01/24/17 Unknown Rx [DUONEB *Not for PRN Use*] amLODIPine [Norvasc] 10 mg PO QDAY #30 tablet 01/24/17 Unknown Rx hydrALAZINE [Apresoline TAB] 100 mg PO TID #90 tab 01/24/17 Unknown Rx oxyCODONE /ACETAMINOPHEN [Percocet 1 tab PO Q8H PRN #24 tablet 01/24/17 Unknown Rx 5/325 mg] Insulin Aspart [NovoLOG Flexpen] 14 units SQ AC #1 pen 03/24/17 Unknown Rx Prednisone [predniSONE 5 mg (6-Day 5 mg PO .TAPER #1 tab.ds.pk 03/24/17 Unknown Rx Pack, 21 Tabs)] Allergies Allergy/AdvReac Type Severity Reaction Status Date / Time No Known Allergies Allergy Unverified 02/25/14 14:49 ED Review of Systems ROS: Stated complaint: CHEST PAIN Other details as noted in HPI ED Past Medical Hx - Past Medical History Previous Medical History?: Yes Hx Hypertension: Yes Hx Heart Attack/AMI: No Hx Congestive Heart Failure: No Hx Diabetes: Yes Hx Deep Vein Thrombosis: No Hx Pulmonary Embolism: No Hx Liver Disease: No Hx Renal Disease: No Hx Sickle Cell Disease: No Hx Arthritis: No Hx Seizures: No Hx Kidney Stones: No Hx Asthma: Yes Hx COPD: Yes Hx Tuberculosis: No Hx Dementia: No Hx HIV: No Additional medical history: high cholesterol - Surgical History Past Surgical History?: Yes Hx Coronary Stent: No Hx Open Heart Surgery: No Hx Pacemaker: No Hx Internal Defibrillator: No Hx Cholecystectomy: Yes Hx Appendectomy: Yes Hx Breast Surgery: No - Social History Smoking Status: Never Smoker - Medications Home Medications: Home Medications Medication Instructions Recorded Confirmed Last Taken Type Hydrochlorothiazide [HCTZ] 25 mg PO QDAY #30 tablet 09/25/16 03/19/17 Unknown Rx Aspirin [Aspirin TAB] 325 mg PO QDAY #60 tablet 01/24/17 03/19/17 Unknown Rx AtorvaSTATin [Lipitor] 40 mg PO QHS #30 tablet 01/24/17 03/19/17 Unknown Rx Carvedilol [Coreg] 25 mg PO BID #30 tablet 01/24/17 03/19/17 Unknown Rx Detemir (Nf) [Levemir (Nf)] 35 units SUB-Q QHS #100 units 01/24/17 03/19/17 Unknown Rx Ipratropium/Albuterol Sulfate 1 ampul IH TIDRT #100 ampul.neb 01/24/17 03/19/17 Unknown Rx [DUONEB *Not for PRN Use*] amLODIPine [Norvasc] 10 mg PO QDAY #30 tablet 01/24/17 03/19/17 Unknown Rx hydrALAZINE [Apresoline TAB] 100 mg PO TID #90 tab 01/24/17 03/19/17 Unknown Rx oxyCODONE /ACETAMINOPHEN [Percocet 1 tab PO Q8H PRN #24 tablet 01/24/17 Unknown Rx 5/325 mg] Insulin Aspart [NovoLOG Flexpen] 14 units SQ AC #1 pen 03/24/17 Unknown Rx Prednisone [predniSONE 5 mg (6-Day 5 mg PO .TAPER #1 tab.ds.pk 03/24/17 Unknown Rx Pack, 21 Tabs)] ED Physical Exam - General Limitations: No Limitations General appearance: alert, in no apparent distress - Head Head exam: Present: atraumatic, normocephalic - Eye Eye exam: Present: normal appearance. Absent: PERRL, EOMI, scleral icterus - ENT ENT exam: Present: mucous membranes moist - Neck Neck exam: Present: normal inspection. Absent: tenderness, meningismus - Respiratory Respiratory exam: Present: wheezes (end expiratory wheezing bilaterally), decreased breath sounds. Absent: respiratory distress - Cardiovascular Cardiovascular Exam: Present: regular rate, normal rhythm. Absent: systolic murmur, diastolic murmur, rubs, gallop - GI/Abdominal GI/Abdominal exam: Present: soft, normal bowel sounds. Absent: distended, tenderness, guarding, rebound, rigid - Extremities Exam Extremities exam: Present: normal capillary refill, other (bilateral ankle and pretibial edema). Absent: tenderness, calf tenderness - Back Exam Back exam: Present: normal inspection - Neurological Exam Neurological exam: Present: alert, oriented X3, CN II-XII intact. Absent: motor sensory deficit - Psychiatric Psychiatric exam: Present: normal affect, normal mood - Skin Skin exam: Present: warm, dry, intact, normal color. Absent: rash ED Course Vital Signs 08/17/17 08/17/17 08/17/17 12:49 13:23 13:45 Temperature 98.9 F Pulse Rate 96 H 93 H Pulse Rate [ 96 H Bilateral Throughout] Respiratory 20 21 Rate Respiratory 22 Rate [Bilateral Throughout] Blood Pressure 224/168 O2 Sat by Pulse 99 97 Oximetry 08/17/17 08/17/17 13:56 14:17 Temperature Pulse Rate 93 H Pulse Rate [ 96 H Bilateral Throughout] Respiratory Rate Respiratory 27 H Rate [Bilateral Throughout] Blood Pressure 206/118 O2 Sat by Pulse Oximetry - Reevaluation(s) Reevaluation #1: Patient was given labetalol and a note. She is referred to Dr. Nunn for further care and evaluation. 08/17/17 14:32 ED Medical Decision Making - Lab Data Result diagrams: 08/17/17 13:27 08/17/17 13:27 Laboratory Results - last 24 hr 08/17/17 08/17/17 08/17/17 13:27 13:27 13:27 WBC 15.9 H RBC 4.87 Hgb 12.4 Hct 40.1 MCV 82 MCH 26 L MCHC 31 RDW 15.7 H Plt Count 360 Lymph % (Auto) 16.2 [place] % (Auto) 6.0 Eos % (Auto) 1.6 Baso % (Auto) 0.9 Lymph # 2.6 [place] # 1.0 H Eos # 0.3 Baso # 0.1 Seg Neutrophils % 75.3 H Seg Neutrophils # 12.0 H PT 12.5 INR 0.89 APTT 29.5 Sodium 138 Potassium 4.0 Chloride 95.8 L Carbon Dioxide 32 H Anion Gap 14 BUN 13 Creatinine 0.8 Estimated GFR > 60 BUN/Creatinine Ratio 16 Glucose 138 H Calcium 10.6 H Phosphorus Magnesium Total Bilirubin Direct Bilirubin Indirect Bilirubin AST ALT Alkaline Phosphatase Troponin T < 0.010 NT-Pro-B Natriuret Pep Total Protein Albumin Albumin/Globulin Ratio 08/17/17 13:27 WBC RBC Hgb Hct MCV MCH MCHC RDW Plt Count Lymph % (Auto) [place] % (Auto) Eos % (Auto) Baso % (Auto) Lymph # [place] # Eos # Baso # Seg Neutrophils % Seg Neutrophils # PT INR APTT Sodium Potassium Chloride Carbon Dioxide Anion Gap BUN Creatinine Estimated GFR BUN/Creatinine Ratio Glucose Calcium Phosphorus 2.50 Magnesium 1.70 Total Bilirubin 0.30 Direct Bilirubin < 0.2 Indirect Bilirubin 0.1 AST 12 ALT 11 Alkaline Phosphatase 99 Troponin T NT-Pro-B Natriuret Pep 343.2 Total Protein 8.1 Albumin 3.5 L Albumin/Globulin Ratio 0.8 Critical care attestation.: If time is entered above; I have spent that time in minutes in the direct care of this critically ill patient, excluding procedure time. ED Disposition Clinical Impression: Accelerated hypertension, COPD exacerbation, Diabetes mellitus type 2 in obese Disposition: OP ADMIT IP TO THIS HOSP Is pt being admited?: Yes Does the pt Need Aspirin: Yes Condition: Stable Instructions: Diabetes Mellitus Type 2 in Adults (ED), Chronic Bronchitis (ED) , Hypertension (ED) Referrals: PRIMARY CARE,MD [Primary Care Provider] - 3-5 Days
[2017-08-17 14:29] LABS: BUN/Creatinine Ratio 16; Blood Urea Nitrogen 13 mg/dL (7-17); Calcium 10.6 mg/dL (8.4-10.2); Hemolysis Index 6
--- NOTE | 2017-08-17 14:34 | History and Physical Report ---
History of Present Illness Chief complaint: My blood pressure is real high, and i cant breathe History of present illness: 57 YO Female with MO, HTN, DM, Obesity Hypoventilation on CPAP QHS, Asthma, COPD , HLD presents to ED for evaluation. PT states that she has experienced shortness of breath over the past 3 days with worsening symptoms over the past day, as well as increased productive cough with clear sputum. Pt was seen in PCP office today and was found to have systolic BP above 200. Pt sent to [facility] for further care and evaluation. PT seen and evaluated in ED and found to have COPD Exacerbation complicated by Acute Respiratory Failure, Sepsis, and Hypertensive Urgency. Pt admitted to medical floor. Pt initiated on sepsis protocol. Pt acknowledges medication noncompliance, but denies fever, chills, CP , Palpitations, NVD, Syncope, BRBPR, Unilateral leg swelling, Calf pain, prolonged travel/immobility, unintentional weight loss, night sweats, trauma, or recent ill contacts. Past History Past Medical History: COPD, diabetes, hypertension, hyperlipidemia Past Surgical History: appendectomy, cholecystectomy Social history: single Family history: diabetes, hypertension Medications and Allergies Allergies Allergy/AdvReac Type Severity Reaction Status Date / Time No Known Allergies Allergy Unverified 02/25/14 14:49 Home Medications Medication Instructions Recorded Confirmed Last Taken Type No Known Home Medications [No 08/17/17 08/17/17 Unknown History Reported Home Medications] Review of Systems Constitutional: other (high blood pressure), no weight loss, no weight gain, no fever, no chills Ears, nose, mouth and throat: no ear pain, no ear discharge, no tinnitis, no decreased hearing, no nose pain, no nasal congestion Breasts: no change in shape, no swelling, no mass Cardiovascular: shortness of breath Respiratory: cough with sputum, excessive sputum Gastrointestinal: no abdominal pain, no nausea, no vomiting, no diarrhea, no constipation Genitourinary Female: no pelvic pain, no flank pain, no menorrhagia, no dysuria , no urinary frequency, no urgency Rectal: no pain, no incontinence, no bleeding Musculoskeletal: no neck stiffness, no neck pain, no shooting arm pain, no arm numbness/tingling, no low back pain, no shooting leg pain Integumentary: no rash, no pruritis, no redness, no sores, no wounds Neurological: no transient paralysis, no paralysis, no weakness, no parathesias , no numbness, no tingling, no seizures Psychiatric: no anxiety, no memory loss, no change in sleep habits, no sleep disturbances, no insomnia, no hypersomnia, no change in appetite, no change in libido, no suicidal ideation Endocrine: no cold intolerance, no heat intolerance, no polyphagia, no excessive thirst Hematologic/Lymphatic: no easy bruising, no easy bleeding, no lymphadenopathy, no lymphedema Allergic/Immunologic: no urticaria, no allergic rhinitis, no wheezing, no persistent infections, no anaphylaxis Exam - Constitutional Vitals: Temp Pulse Resp BP Pulse Ox 98.9 F 93 H 27 H 206/118 97 08/17/17 12:49 08/17/17 14:17 08/17/17 13:56 08/17/17 14:17 08/17/17 13:23 General appearance: Present: mild distress - EENT Eyes: Present: PERRL ENT: hearing intact, clear oral mucosa - Neck Neck: Present: supple, normal ROM - Respiratory Respiratory effort: normal Respiratory: bilateral: diminished - Cardiovascular Heart Sounds: Present: S1 & S2. Absent: rub, click - Extremities Extremities: pulses symmetrical, No edema Peripheral Pulses: within normal limits - Abdominal General gastrointestinal: Present: soft, non-tender, non-distended, normal bowel sounds Female genitourinary: Present: normal - Integumentary Integumentary: Present: clear, warm, dry - Musculoskeletal Musculoskeletal: gait normal, strength equal bilaterally - Psychiatric Psychiatric: appropriate mood/affect, intact judgment & insight - Neurologic Neurologic: CNII-XII intact, moves all extremities Results - Labs CBC & Chem 7: 08/17/17 13:27 08/17/17 13:27 Labs: Abnormal lab results 08/17/17 08/17/17 08/17/17 Range/Units 13:27 13:27 13:27 WBC 15.9 H (4.5-11.0) K/mm3 MCH 26 L (28-32) pg RDW 15.7 H (13.2-15.2) % [place] # 1.0 H (0.0-0.8) K/mm3 Seg Neutrophils % 75.3 H (40.0-70.0) % Seg Neutrophils # 12.0 H (1.8-7.7) K/mm3 Chloride 95.8 L (98-107) mmol/L Carbon Dioxide 32 H (22-30) mmol/L Glucose 138 H (65-100) mg/dL Calcium 10.6 H (8.4-10.2) mg/dL Albumin 3.5 L (3.9-5) g/dL Assessment and Plan - Patient Problems (1) Sepsis Current Visit: Yes Status: Acute Qualifiers: Sepsis type: sepsis due to unspecified organism Qualified Code(s): A41.9 - Sepsis, unspecified organism Plan to address problem: IV antibiotic therapy, IVF resuscitation, monitor uop q shift, Chest x ray, urinalysis, (2) Obesity hypoventilation syndrome Current Visit: Yes Status: Acute Plan to address problem: Supplemental oxygen, nebulizer therapy, NIPPV, Chest x ray. (3) COPD exacerbation Current Visit: Yes Status: Chronic Plan to address problem: Supplemental oxygen, nebulizer therapy, IV steroids, IV antibiotic therapy, chest x ray (4) Hypertensive urgency Current Visit: No Status: Acute Plan to address problem: IV hydralazine, monitor BP q shift, resume prehospital antihypertensive therapy (5) Respiratory failure Current Visit: Yes Status: Acute Qualifiers: Chronicity: acute Plan to address problem: Supplemental oxygen, nebulizer therapy, NIPPV as clinically indicated, (6) DVT prophylaxis Current Visit: Yes Status: Acute Plan to address problem: scd to ble while in bed
[2017-08-17] MEDS ORDERED: BABY ASPIRIN PO ONE (14:35)
[2017-08-17] MEDS ORDERED: APRESOLINE IV PRN (14:38)
[2017-08-17] MEDS ORDERED: PROVENTIL IH PRN (15:11)
[2017-08-17] MEDS ORDERED: VANCOMYCIN 2,500 MG in NACL 0.9% 500 ML 500 ML IV ONE (15:11)
[2017-08-17] MEDS ORDERED: SODIUM CHLORIDE FLUSH SYRINGE 10 ML IV PRN (15:11)
[2017-08-17] MEDS ORDERED: MAGNESIUM SULFATE IV ONE (15:17)
[2017-08-17 15:19] LABS: Bacteria,Urine 1+ /HPF (Negative); Bilirubin,Urine NEG (Negative); Blood,Urine NEG (Negative); Color,Urine Yellow (Yellow); Urobilinogen,Urine < 2.0 mg/dL (<2.0); WBC,Urine < 1.0 /HPF (0.0-6.0)
[2017-08-17 15:29] LABS: Protein,Urine >500 mg/dL (Negative)
--- NOTE | 2017-08-17 15:51 | XRay Report ---
Portable chest: Chest pain. The cardiac contour does appear slightly enlarged. There is no significant vascular congestion the lungs appear generally clear. Compared to prior exam on March 19, 2017 the vascular pattern is improved. Impression Mild cardiomegaly. No acute finding suspected.
[2017-08-17] MEDS ORDERED: INSULIN ASPART 14 UNIT SQ SCH (16:30)
[2017-08-17] MEDS ORDERED: MAGNESIUM SULFATE 1 GM in NACL 0.9% 50 ML IV ONE (17:15)
[2017-08-17] MEDS: HumaLOG SUB-Q SCH (18:10)
[2017-08-17] MEDS: NACL 0.9% 1000 ML IV ONE ×2 (18:44→19:44)
[2017-08-17] MEDS: NACL 0.9% 1000 ML 1,000 ML IV SCH (18:46)
[2017-08-17] MEDS ORDERED: ZOFRAN IV PRN (19:27)
[2017-08-17] MEDS ORDERED: PNEUMOVAX 23 IM ONE (19:46)
[2017-08-17] MEDS: DUONEB *Not for PRN Use IH SCH (20:18)
[2017-08-17] MEDS ORDERED: INSULIN DETEMIR SUB-Q SCH (22:00)
[2017-08-17] MEDS: SODIUM CHLORIDE FLUSH SYRINGE 10 ML IV SCH (23:46)
[2017-08-17] MEDS: TYLENOL PO PRN (23:47)
[2017-08-17] MEDS: LANTUS SUB-Q SCH (23:47)
[2017-08-17] MEDS: APRESOLINE PO SCH (23:50)
[2017-08-17] MEDS: COREG PO SCH (23:51)
[2017-08-17] MEDS: ZOSYN/NS 4.5GM/100ML 4.5 GM/100 ML VIAL IV SCH (23:54)
[2017-08-18] MEDS: PERCOCET 5/325 PO PRN ×3 (01:25→22:01)
[2017-08-18] MEDS: ZOSYN/NS 4.5GM/100ML 4.5 GM/100 ML VIAL IV SCH ×3 (06:33→22:02)
[2017-08-18] MEDS: NACL 0.9% 1000 ML 1,000 ML IV SCH (06:34)
[2017-08-18] MEDS: DUONEB *Not for PRN Use IH SCH ×3 (08:15→20:53)
[2017-08-18] MEDS: APRESOLINE PO SCH ×3 (09:13→22:01)
[2017-08-18] MEDS: HumaLOG SUB-Q SCH ×3 (09:14→17:37)
[2017-08-18] MEDS: ASPIRIN PO SCH (11:11)
[2017-08-18] MEDS: HCTZ PO SCH (11:12)
[2017-08-18] MEDS: COREG PO SCH ×2 (11:12→22:01)
[2017-08-18] MEDS: SODIUM CHLORIDE FLUSH SYRINGE 10 ML IV SCH ×2 (11:13→22:02)
[2017-08-18] MEDS: NORVASC PO SCH (11:13)
--- NOTE | 2017-08-18 11:21 | Progress Note ---
Assessment and Plan Assessment and plan: Sepsis IV antibiotic therapy, IVF resuscitation, monitor uop q shift, Chest x ray, urinalysis, Chest Pain Patient complains of chest pain this morning. Cardiology consultation. Consider stress thallium in a.m. Obesity hypoventilation syndrome Supplemental oxygen, nebulizer therapy, NIPPV, serial Chest x ray. COPD exacerbation Supplemental oxygen, nebulizer therapy, IV steroids, IV antibiotic therapy, chest x ray Hypertensive urgency IV hydralazine, monitor BP q shift, resume prehospital antihypertensive therapy Respiratory failure Supplemental oxygen, nebulizer therapy, NIPPV as clinically indicated, DVT prophylaxis scd to ble while in bed History Interval history: Pt c/o CP 08/28 but no SOB Hospitalist Physical - Constitutional Vitals: Temp Pulse Resp BP Pulse Ox 98.4 F 88 20 139/59 99 08/17/17 23:26 08/18/17 11:12 08/18/17 08:15 08/18/17 11:12 08/18/17 08:15 General appearance: Present: no acute distress - EENT Eyes: Present: PERRL, EOM intact ENT: hearing intact, clear oral mucosa, dentition normal - Neck Neck: Present: supple, normal ROM - Respiratory Respiratory effort: normal Respiratory: bilateral: CTA - Cardiovascular Rhythm: regular Heart Sounds: Present: S1 & S2. Absent: gallop, rub - Extremities Extremities: no ischemia, No edema, Full ROM - Abdominal General gastrointestinal: soft, non-tender, non-distended, normal bowel sounds - Integumentary Integumentary: Present: clear, warm, dry - Neurologic Neurologic: CNII-XII intact, moves all extremities Results - Labs CBC & Chem 7: 08/17/17 13:27 08/17/17 13:27 Labs: Laboratory Last Values WBC 15.9 K/mm3 (4.5-11.0) H 08/17/17 13:27 RBC 4.87 M/mm3 (3.65-5.03) 08/17/17 13:27 Hgb 12.4 gm/dl (10.1-14.3) 08/17/17 13:27 Hct 40.1 % (30.3-42.9) 08/17/17 13:27 MCV 82 fl (79-97) 08/17/17 13:27 MCH 26 pg (28-32) L 08/17/17 13:27 MCHC 31 % (30-34) 08/17/17 13:27 RDW 15.7 % (13.2-15.2) H 08/17/17 13:27 Plt Count 360 K/mm3 (140-440) 08/17/17 13:27 Lymph % (Auto) 16.2 % (13.4-35.0) 08/17/17 13:27 [place] % (Auto) 6.0 % (0.0-7.3) 08/17/17 13:27 Eos % (Auto) 1.6 % (0.0-4.3) 08/17/17 13:27 Baso % (Auto) 0.9 % (0.0-1.8) 08/17/17 13:27 Lymph # 2.6 K/mm3 (1.2-5.4) 08/17/17 13:27 [place] # 1.0 K/mm3 (0.0-0.8) H 08/17/17 13:27 Eos # 0.3 K/mm3 (0.0-0.4) 08/17/17 13:27 Baso # 0.1 K/mm3 (0.0-0.1) 08/17/17 13:27 Seg Neutrophils % 75.3 % (40.0-70.0) H 08/17/17 13:27 Seg Neutrophils # 12.0 K/mm3 (1.8-7.7) H 08/17/17 13:27 PT 12.5 Sec. (12.2-14.9) 08/17/17 13:27 INR 0.89 (0.87-1.13) 08/17/17 13:27 APTT 29.5 Sec. (24.2-36.6) 08/17/17 13:27 Sodium 138 mmol/L (137-145) 08/17/17 13:27 Potassium 4.0 mmol/L (3.6-5.0) 08/17/17 13:27 Chloride 95.8 mmol/L (98-107) L 08/17/17 13:27 Carbon Dioxide 32 mmol/L (22-30) H 08/17/17 13:27 Anion Gap 14 mmol/L 08/17/17 13:27 BUN 13 mg/dL (7-17) 08/17/17 13:27 Creatinine 0.8 mg/dL (0.7-1.2) 08/17/17 13:27 Estimated GFR > 60 ml/min 08/17/17 13:27 BUN/Creatinine Ratio 16 % 08/17/17 13:27 Glucose 138 mg/dL (65-100) H 08/17/17 13:27 POC Glucose 214 (70-105) H 08/18/17 08:54 Lactic Acid 1.10 mmol/L (0.7-2.0) 08/18/17 03:58 Calcium 10.6 mg/dL (8.4-10.2) H 08/17/17 13:27 Phosphorus 2.50 mg/dL (2.5-4.5) 08/17/17 13:27 Magnesium 1.70 mg/dL (1.7-2.3) 08/17/17 13:27 Total Bilirubin 0.30 mg/dL (0.1-1.2) 08/17/17 13:27 Direct Bilirubin < 0.2 mg/dL (0-0.2) 08/17/17 13:27 Indirect Bilirubin 0.1 mg/dL 08/17/17 13:27 AST 12 units/L (5-40) 08/17/17 13:27 ALT 11 units/L (7-56) 08/17/17 13:27 Alkaline Phosphatase 99 units/L (35-129) 08/17/17 13:27 Troponin T < 0.010 ng/mL (0.00-0.029) 08/17/17 13:27 NT-Pro-B Natriuret Pep 343.2 pg/mL (0-900) 08/17/17 13:27 Total Protein 8.1 g/dL (6.3-8.2) 08/17/17 13:27 Albumin 3.5 g/dL (3.9-5) L 08/17/17 13:27 Albumin/Globulin Ratio 0.8 % 08/17/17 13:27 Urine Color Yellow (Yellow) 08/17/17 15:05 Urine Turbidity Clear (Clear) 08/17/17 15:05 Urine pH 7.0 (5.0-7.0) 08/17/17 15:05 Ur Specific [place] 1.017 (1.003-1.030) 08/17/17 15:05 Urine Protein >500 mg/dL (Negative) 08/17/17 15:05 Urine Glucose (UA) 50 mg/dL (Negative) 08/17/17 15:05 Urine Ketones Neg mg/dL (Negative) 08/17/17 15:05 Urine Blood Neg (Negative) 08/17/17 15:05 Urine Nitrite Neg (Negative) 08/17/17 15:05 Urine Bilirubin Neg (Negative) 08/17/17 15:05 Urine Urobilinogen < 2.0 mg/dL (<2.0) 08/17/17 15:05 Ur Leukocyte Esterase Neg (Negative) 08/17/17 15:05 Urine WBC (Auto) < 1.0 /HPF (0.0-6.0) 08/17/17 15:05 Urine RBC (Auto) 2.0 /HPF (0.0-6.0) 08/17/17 15:05 U Epithel Cells (Auto) 2.0 /HPF (0-13.0) 08/17/17 15:05 Urine Bacteria (Auto) 1+ /HPF (Negative) 08/17/17 15:05
[2017-08-18] MEDS ORDERED: PNEUMOVAX 23 IM ONE (12:00)
[2017-08-18] MEDS: LANTUS SUB-Q SCH (22:09)
[2017-08-18] MEDS: TYLENOL PO PRN (23:11)
[2017-08-19] MEDS: NACL 0.9% 1000 ML 1,000 ML IV SCH (00:53)
[2017-08-19 06:06] LABS: Basophils # (Auto) 0.1 K/mm3 (0.0-0.1); Basophils % (Auto) 0.7 % (0.0-1.8); Eosinophils % (Auto) 0.1 % (0.0-4.3); Lymphocytes # (Auto) 2.3 K/mm3 (1.2-5.4); Lymphocytes % (Auto) 14.6 % (13.4-35.0); Mean Corpuscular HGB Conc 30 % (30-34); Mean Corpuscular Volume 84 fl (79-97); Monocytes # (Auto) 1.1 K/mm3 (0.0-0.8); Monocytes % (Auto) 6.7 % (0.0-7.3); Platelet Count 307 K/mm3 (140-440); Red Blood Count 4.17 M/mm3 (3.65-5.03); Red Cell Distribution Width 16.3 % (13.2-15.2)
[2017-08-19 06:16] LABS: Hematocrit 34.9 % (30.3-42.9); Hemoglobin 10.6 gm/dl (10.1-14.3); Mean Corpuscular Hemoglobin 25 pg (28-32)
[2017-08-19 06:23] LABS: Calcium 9.4 mg/dL (8.4-10.2)
[2017-08-19] MEDS: ZOSYN/NS 4.5GM/100ML 4.5 GM/100 ML VIAL IV SCH ×3 (06:30→22:34)
[2017-08-19] MEDS: DUONEB *Not for PRN Use IH SCH ×3 (08:22→22:06)
[2017-08-19] MEDS: HumaLOG SUB-Q SCH ×3 (08:30→17:43)
[2017-08-19] MEDS: APRESOLINE PO SCH (08:31)
[2017-08-19] MEDS: NORVASC PO SCH (09:08)
[2017-08-19] MEDS: COREG PO SCH ×2 (09:09→22:41)
[2017-08-19] MEDS: HCTZ PO SCH (09:09)
[2017-08-19] MEDS: ASPIRIN PO SCH (09:10)
--- NOTE | 2017-08-19 10:24 | Consultation ---
History of Present Illness Consult date: 08/19/17 Consult reason: chest pain History of present illness: 57 YO woman with h/o COPD, htn, DM, obestity hypoventilation syndrome, and medical noncompliance who presented to hospital with increasing cough, uncontrolled htn, and shortness of breath. She was admitted with COPD exacerbation and hypertensive urgency. This morning she complained of chest pain which she describes as a sharp pain in her chest with associated nausea. She reports this happened after she took hydralazine and has had similar symptoms previously after taking hydralazine. Of note, BNP level and troponins have been normal. Chest Xray was clear. ECG reveals NSR, LVH, poor r wave transition Last echocardiogram on 09/18/16 revealed normal LVEF, impaired relaxation, mild concentric LVH. Last MPI 02/2014 revealed normal perfusion. Past History Past Medical History: COPD, diabetes, hypertension, hyperlipidemia Past Surgical History: appendectomy, cholecystectomy Social history: single Family history: diabetes, hypertension Medications and Allergies Allergies Allergy/AdvReac Type Severity Reaction Status Date / Time No Known Allergies Allergy Unverified 02/25/14 14:49 Home Medications Medication Instructions Recorded Confirmed Last Taken Type No Known Home Medications [No 08/17/17 08/17/17 Unknown History Reported Home Medications] Active Meds: Active Medications Acetaminophen (Tylenol) 650 mg PO Q6H PRN PRN Reason: Pain, Mild (1-3) Last Admin: 08/18/17 23:11 Dose: 650 mg Albuterol (Proventil) 2.5 mg IH Q3HRT PRN PRN Reason: Shortness Of Breath Albuterol/Ipratropium (Duoneb *Not For Prn Use*) 1 ampul IH TIDRT [facility] Last Admin: 08/19/17 08:22 Dose: 1 ampul Amlodipine Besylate (Norvasc) 10 mg PO QDAY [facility] Last Admin: 08/19/17 09:08 Dose: 10 mg Aspirin (Aspirin) 325 mg PO QDAY [facility] Last Admin: 08/19/17 09:10 Dose: 325 mg Atorvastatin Calcium (Lipitor) 40 mg PO QHS [facility] Last Admin: 08/18/17 22:02 Dose: 40 mg Carvedilol (Coreg) 25 mg PO BID [facility] Last Admin: 08/19/17 09:09 Dose: 25 mg Hydralazine HCl (Apresoline) 20 mg IV Q4HR PRN PRN Reason: HTN SYS>170 Hydralazine HCl (Apresoline) 100 mg PO TID [facility] Last Admin: 08/19/17 08:31 Dose: Not Given Hydrochlorothiazide (Hctz) 25 mg PO QDAY [facility] Last Admin: 08/19/17 09:09 Dose: 25 mg Piperacillin Sod/Tazobactam Sod (Zosyn/Ns 4.5gm/100ml) 4.5 gm in 100 mls @ 200 mls/hr IV Q8HR [facility]; Protocol Last Admin: 08/19/17 06:30 Dose: 200 mls/hr Sodium Chloride (Nacl 0.9% 1000 Ml) 1,000 mls @ 150 mls/hr IV DIRECT BALJINDER Stop: 08/20/17 01:09 Last Admin: 08/19/17 00:53 Dose: 100 mls/hr Insulin Glargine (Lantus) 35 units SUB-Q QHS [facility] Last Admin: 08/18/17 22:09 Dose: 35 units Insulin Human Lispro (Humalog) 14 unit SUB-Q AC [facility] Last Admin: 08/19/17 08:30 Dose: 14 unit Methylprednisolone Sodium Succinate (Solu-Medrol) 40 mg IV Q24HR [facility] Last Admin: 08/19/17 09:10 Dose: 40 mg Ondansetron HCl (Zofran) 4 mg IV Q8H PRN PRN Reason: Nausea And Vomiting Last Admin: 08/18/17 01:25 Dose: 4 mg Oxycodone/Acetaminophen (Percocet 5/325) 1 tab PO Q8H PRN PRN Reason: Pain, Moderate (4-6) Last Admin: 08/18/17 22:01 Dose: 1 tab Sodium Chloride (Sodium Chloride Flush Syringe 10 Ml) 10 ml IV BID [facility] Last Admin: 08/18/17 22:02 Dose: 10 ml Sodium Chloride (Sodium Chloride Flush Syringe 10 Ml) 10 ml IV PRN PRN PRN Reason: LINE FLUSH Review of Systems All systems: negative (per hpi) Physical Examination Vital Signs Temp Pulse Resp BP Pulse Ox 98.9 F 96 H 20 224/168 99 08/17/17 12:49 08/17/17 12:49 08/17/17 12:49 08/17/17 12:49 08/17/17 12:49 General appearance: no acute distress HEENT: Positive: PERRL, EOMI Cardiac: Positive: Reg Rate and Rhythm. Negative: Audible Murmur Lungs: Positive: clear to auscultation Neuro: Positive: Grossly Intact Abdomen: Positive: Soft, Active Bowel Sounds Extremities: Absent: edema Results 08/19/17 05:27 08/19/17 05:27 CBC 08/19/17 Range/Units 05:27 WBC 15.7 H (4.5-11.0) K/mm3 RBC 4.17 (3.65-5.03) M/mm3 Hgb 10.6 (10.1-14.3) gm/dl Hct 34.9 (30.3-42.9) % Plt Count 307 (140-440) K/mm3 Lymph # 2.3 (1.2-5.4) K/mm3 [place] # 1.1 H (0.0-0.8) K/mm3 Eos # 0.0 (0.0-0.4) K/mm3 Baso # 0.1 (0.0-0.1) K/mm3 Comprehensive Metabolic Panel 08/19/17 Range/Units 05:27 Sodium 138 (137-145) mmol/L Potassium 5.4 H D (3.6-5.0) mmol/L Chloride 100.4 (98-107) mmol/L Carbon Dioxide 26 (22-30) mmol/L BUN 29 H (7-17) mg/dL Creatinine 1.9 H D (0.7-1.2) mg/dL Glucose 238 H (65-100) mg/dL Calcium 9.4 (8.4-10.2) mg/dL Assessment and Plan Atypical chest pain: Pt feels episode of CP was related to hydralazine. COPD exacerbation Uncontrolled htn Acute renal failure DM Obesity hypoventilation syndrome. Recommend: Stop hydralazine - add PRN clonidine and can add scheduled clonidine if needed. Continue to treat for ongoing COPD exacerbation. Repeat MPI if she has future episodes of chest pain.
--- NOTE | 2017-08-19 11:28 | Progress Note ---
Assessment and Plan Assessment and plan: Sepsis IV antibiotic therapy, IVF resuscitation, monitor uop q shift, Chest x ray, urinalysis, Acute renal failure Etiology likely secondary to vasomotor nephropathy/dehydration. Start IV fluids and hold hydrochlorothiazide. Consider nephrology consultation if no improvement. Chest Pain Patient complains of chest pain this morning. Cardiology following. Stress thallium per cardiology. Obesity hypoventilation syndrome Supplemental oxygen, nebulizer therapy, NIPPV, serial Chest x ray. COPD exacerbation Supplemental oxygen, nebulizer therapy, IV steroids, IV antibiotic therapy, chest x ray Hypertensive urgency IV hydralazine, monitor BP q shift, resume prehospital antihypertensive therapy Acute hypoxemic Respiratory failure Supplemental oxygen, nebulizer therapy, NIPPV as clinically indicated, DVT prophylaxis scd to ble while in bed History Interval history: Patient denies any chest pain. No new issues overnight. Hospitalist Physical - Constitutional Vitals: Temp Pulse Resp BP Pulse Ox 97.9 F 89 20 145/82 98 08/19/17 06:01 08/19/17 09:08 08/19/17 08:32 08/19/17 09:09 08/19/17 08:22 General appearance: Present: no acute distress - EENT Eyes: Present: PERRL, EOM intact ENT: hearing intact, clear oral mucosa, dentition normal - Neck Neck: Present: supple, normal ROM - Respiratory Respiratory effort: normal Respiratory: bilateral: CTA - Cardiovascular Rhythm: regular Heart Sounds: Present: S1 & S2. Absent: gallop, rub - Extremities Extremities: no ischemia, No edema, Full ROM - Abdominal General gastrointestinal: soft, non-tender, non-distended, normal bowel sounds - Integumentary Integumentary: Present: clear, warm, dry - Neurologic Neurologic: CNII-XII intact, moves all extremities Results - Labs CBC & Chem 7: 08/19/17 05:27 08/19/17 05:27 Labs: Laboratory Last Values WBC 15.7 K/mm3 (4.5-11.0) H 08/19/17 05:27 RBC 4.17 M/mm3 (3.65-5.03) 08/19/17 05:27 Hgb 10.6 gm/dl (10.1-14.3) 08/19/17 05:27 Hct 34.9 % (30.3-42.9) 08/19/17 05:27 MCV 84 fl (79-97) 08/19/17 05:27 MCH 25 pg (28-32) L 08/19/17 05:27 MCHC 30 % (30-34) 08/19/17 05:27 RDW 16.3 % (13.2-15.2) H 08/19/17 05:27 Plt Count 307 K/mm3 (140-440) 08/19/17 05:27 Lymph % (Auto) 14.6 % (13.4-35.0) 08/19/17 05:27 [place] % (Auto) 6.7 % (0.0-7.3) 08/19/17 05:27 Eos % (Auto) 0.1 % (0.0-4.3) 08/19/17 05:27 Baso % (Auto) 0.7 % (0.0-1.8) 08/19/17 05:27 Lymph # 2.3 K/mm3 (1.2-5.4) 08/19/17 05:27 [place] # 1.1 K/mm3 (0.0-0.8) H 08/19/17 05:27 Eos # 0.0 K/mm3 (0.0-0.4) 08/19/17 05:27 Baso # 0.1 K/mm3 (0.0-0.1) 08/19/17 05:27 Seg Neutrophils % 77.9 % (40.0-70.0) H 08/19/17 05:27 Seg Neutrophils # 12.2 K/mm3 (1.8-7.7) H 08/19/17 05:27 PT 12.5 Sec. (12.2-14.9) 08/17/17 13:27 INR 0.89 (0.87-1.13) 08/17/17 13:27 APTT 29.5 Sec. (24.2-36.6) 08/17/17 13:27 Sodium 138 mmol/L (137-145) 08/19/17 05:27 Potassium 5.4 mmol/L (3.6-5.0) H D 08/19/17 05:27 Chloride 100.4 mmol/L (98-107) 08/19/17 05:27 Carbon Dioxide 26 mmol/L (22-30) 08/19/17 05:27 Anion Gap 17 mmol/L 08/19/17 05:27 BUN 29 mg/dL (7-17) H 08/19/17 05:27 Creatinine 1.9 mg/dL (0.7-1.2) H D 08/19/17 05:27 Estimated GFR 33 ml/min 08/19/17 05:27 BUN/Creatinine Ratio 15 % 08/19/17 05:27 Glucose 238 mg/dL (65-100) H 08/19/17 05:27 POC Glucose 223 (70-105) H 08/18/17 22:13 Lactic Acid 1.10 mmol/L (0.7-2.0) 08/18/17 03:58 Calcium 9.4 mg/dL (8.4-10.2) 08/19/17 05:27 Phosphorus 2.50 mg/dL (2.5-4.5) 08/17/17 13:27 Magnesium 1.70 mg/dL (1.7-2.3) 08/17/17 13:27 Total Bilirubin 0.30 mg/dL (0.1-1.2) 08/17/17 13:27 Direct Bilirubin < 0.2 mg/dL (0-0.2) 08/17/17 13:27 Indirect Bilirubin 0.1 mg/dL 08/17/17 13:27 AST 12 units/L (5-40) 08/17/17 13:27 ALT 11 units/L (7-56) 08/17/17 13:27 Alkaline Phosphatase 99 units/L (35-129) 08/17/17 13:27 Troponin T < 0.010 ng/mL (0.00-0.029) 08/17/17 13:27 NT-Pro-B Natriuret Pep 343.2 pg/mL (0-900) 08/17/17 13:27 Total Protein 8.1 g/dL (6.3-8.2) 08/17/17 13:27 Albumin 3.5 g/dL (3.9-5) L 08/17/17 13:27 Albumin/Globulin Ratio 0.8 % 08/17/17 13:27 Urine Color Yellow (Yellow) 08/17/17 15:05 Urine Turbidity Clear (Clear) 08/17/17 15:05 Urine pH 7.0 (5.0-7.0) 08/17/17 15:05 Ur Specific [place] 1.017 (1.003-1.030) 08/17/17 15:05 Urine Protein >500 mg/dL (Negative) 08/17/17 15:05 Urine Glucose (UA) 50 mg/dL (Negative) 08/17/17 15:05 Urine Ketones Neg mg/dL (Negative) 08/17/17 15:05 Urine Blood Neg (Negative) 08/17/17 15:05 Urine Nitrite Neg (Negative) 08/17/17 15:05 Urine Bilirubin Neg (Negative) 08/17/17 15:05 Urine Urobilinogen < 2.0 mg/dL (<2.0) 08/17/17 15:05 Ur Leukocyte Esterase Neg (Negative) 08/17/17 15:05 Urine WBC (Auto) < 1.0 /HPF (0.0-6.0) 08/17/17 15:05 Urine RBC (Auto) 2.0 /HPF (0.0-6.0) 08/17/17 15:05 U Epithel Cells (Auto) 2.0 /HPF (0-13.0) 08/17/17 15:05 Urine Bacteria (Auto) 1+ /HPF (Negative) 08/17/17 15:05
[2017-08-19] MEDS: TYLENOL PO PRN ×3 (11:42→23:29)
[2017-08-19] MEDS: SODIUM CHLORIDE FLUSH SYRINGE 10 ML IV SCH (11:43)
[2017-08-19] MEDS ORDERED: NACL 0.9% 1000 ML 1,000 ML IV SCH (12:00)
[2017-08-19] MEDS: LANTUS SUB-Q SCH (22:42)
[2017-08-19] MEDS: CATAPRES PO PRN (23:30)
[2017-08-20] MEDS: SODIUM CHLORIDE FLUSH SYRINGE 10 ML IV SCH ×3 (06:24→22:24)
[2017-08-20] MEDS: ZOSYN/NS 4.5GM/100ML 4.5 GM/100 ML VIAL IV SCH ×3 (07:15→22:21)
[2017-08-20 07:35] LABS: Basophils # (Auto) 0.1 K/mm3 (0.0-0.1); Basophils % (Auto) 0.6 % (0.0-1.8); Eosinophils # (Auto) 0.1 K/mm3 (0.0-0.4); Eosinophils % (Auto) 0.9 % (0.0-4.3); Lymphocytes # (Auto) 2.6 K/mm3 (1.2-5.4); Lymphocytes % (Auto) 21.1 % (13.4-35.0); Mean Corpuscular HGB Conc 30 % (30-34); Mean Corpuscular Volume 84 fl (79-97); Monocytes % (Auto) 8.3 % (0.0-7.3); Platelet Count 286 K/mm3 (140-440); Red Blood Count 4.03 M/mm3 (3.65-5.03); Red Cell Distribution Width 15.9 % (13.2-15.2)
[2017-08-20 07:37] LABS: Hematocrit 33.8 % (30.3-42.9); Hemoglobin 10.3 gm/dl (10.1-14.3); Mean Corpuscular Hemoglobin 25 pg (28-32)
[2017-08-20 07:58] LABS: Calcium 10.1 mg/dL (8.4-10.2)
--- NOTE | 2017-08-20 09:01 | Progress Note ---
Assessment and Plan Assessment and plan: Sepsis IV antibiotic therapy, IVF resuscitation, monitor uop q shift, Chest x ray, urinalysis, Acute renal failure Etiology likely secondary to vasomotor nephropathy/dehydration vs JASMYNE from sepsis/ATN. Cont IV fluids and hold hydrochlorothiazide. Consider nephrology consultation if no improvement. Check Renal US Chest Pain Patient complains of chest pain this morning bur less 3/10. Cardiology following. Stress thallium per cardiology. Obesity hypoventilation syndrome/LENNOX Supplemental oxygen, nebulizer therapy, NIPPV, serial Chest x ray. CPAP at night COPD exacerbation Supplemental oxygen, nebulizer therapy, IV steroids, IV antibiotic therapy, chest x ray Hypertensive urgency IV hydralazine, monitor BP q shift, resume prehospital antihypertensive therapy Acute on Chronic hypoxemic Respiratory failure Supplemental oxygen, nebulizer therapy, NIPPV as clinically indicated, Pt on 4L O2 at home DVT prophylaxis lovenox daily History Interval history: Patient denies any chest pain. No new issues overnight. Hospitalist Physical - Constitutional Vitals: Temp Pulse Resp BP Pulse Ox 98.3 F 75 18 113/61 92 08/20/17 06:07 08/20/17 06:07 08/20/17 06:07 08/20/17 06:07 08/20/17 06:07 General appearance: Present: no acute distress - EENT Eyes: Present: PERRL, EOM intact ENT: hearing intact, clear oral mucosa, dentition normal - Neck Neck: Present: supple, normal ROM - Respiratory Respiratory effort: normal Respiratory: bilateral: CTA - Cardiovascular Rhythm: regular Heart Sounds: Present: S1 & S2. Absent: gallop, rub - Extremities Extremities: no ischemia, No edema, Full ROM - Abdominal General gastrointestinal: soft, non-tender, non-distended, normal bowel sounds - Integumentary Integumentary: Present: clear, warm, dry - Neurologic Neurologic: CNII-XII intact, moves all extremities Results - Labs CBC & Chem 7: 08/20/17 06:57 08/20/17 06:57 Labs: Laboratory Last Values WBC 12.3 K/mm3 (4.5-11.0) H 08/20/17 06:57 RBC 4.03 M/mm3 (3.65-5.03) 08/20/17 06:57 Hgb 10.3 gm/dl (10.1-14.3) 08/20/17 06:57 Hct 33.8 % (30.3-42.9) 08/20/17 06:57 MCV 84 fl (79-97) 08/20/17 06:57 MCH 25 pg (28-32) L 08/20/17 06:57 MCHC 30 % (30-34) 08/20/17 06:57 RDW 15.9 % (13.2-15.2) H 08/20/17 06:57 Plt Count 286 K/mm3 (140-440) 08/20/17 06:57 Lymph % (Auto) 21.1 % (13.4-35.0) 08/20/17 06:57 [place] % (Auto) 8.3 % (0.0-7.3) H 08/20/17 06:57 Eos % (Auto) 0.9 % (0.0-4.3) 08/20/17 06:57 Baso % (Auto) 0.6 % (0.0-1.8) 08/20/17 06:57 Lymph # 2.6 K/mm3 (1.2-5.4) 08/20/17 06:57 [place] # 1.0 K/mm3 (0.0-0.8) H 08/20/17 06:57 Eos # 0.1 K/mm3 (0.0-0.4) 08/20/17 06:57 Baso # 0.1 K/mm3 (0.0-0.1) 08/20/17 06:57 Seg Neutrophils % 69.1 % (40.0-70.0) 08/20/17 06:57 Seg Neutrophils # 8.5 K/mm3 (1.8-7.7) H 08/20/17 06:57 PT 12.5 Sec. (12.2-14.9) 08/17/17 13:27 INR 0.89 (0.87-1.13) 08/17/17 13:27 APTT 29.5 Sec. (24.2-36.6) 08/17/17 13:27 Sodium 141 mmol/L (137-145) 08/20/17 06:57 Potassium 4.8 mmol/L (3.6-5.0) 08/20/17 06:57 Chloride 101.5 mmol/L (98-107) 08/20/17 06:57 Carbon Dioxide 28 mmol/L (22-30) 08/20/17 06:57 Anion Gap 16 mmol/L 08/20/17 06:57 BUN 35 mg/dL (7-17) H 08/20/17 06:57 Creatinine 2.0 mg/dL (0.7-1.2) H 08/20/17 06:57 Estimated GFR 31 ml/min 08/20/17 06:57 BUN/Creatinine Ratio 18 % 08/20/17 06:57 Glucose 145 mg/dL (65-100) H 08/20/17 06:57 POC Glucose 137 (70-105) H 08/20/17 08:09 Lactic Acid 1.10 mmol/L (0.7-2.0) 08/18/17 03:58 Calcium 10.1 mg/dL (8.4-10.2) 08/20/17 06:57 Phosphorus 2.50 mg/dL (2.5-4.5) 08/17/17 13:27 Magnesium 1.70 mg/dL (1.7-2.3) 08/17/17 13:27 Total Bilirubin 0.30 mg/dL (0.1-1.2) 08/17/17 13:27 Direct Bilirubin < 0.2 mg/dL (0-0.2) 08/17/17 13:27 Indirect Bilirubin 0.1 mg/dL 08/17/17 13:27 AST 12 units/L (5-40) 08/17/17 13:27 ALT 11 units/L (7-56) 08/17/17 13:27 Alkaline Phosphatase 99 units/L (35-129) 08/17/17 13:27 Troponin T < 0.010 ng/mL (0.00-0.029) 08/17/17 13:27 NT-Pro-B Natriuret Pep 343.2 pg/mL (0-900) 08/17/17 13:27 Total Protein 8.1 g/dL (6.3-8.2) 08/17/17 13:27 Albumin 3.5 g/dL (3.9-5) L 08/17/17 13:27 Albumin/Globulin Ratio 0.8 % 08/17/17 13:27 Urine Color Yellow (Yellow) 08/17/17 15:05 Urine Turbidity Clear (Clear) 08/17/17 15:05 Urine pH 7.0 (5.0-7.0) 08/17/17 15:05 Ur Specific [place] 1.017 (1.003-1.030) 08/17/17 15:05 Urine Protein >500 mg/dL (Negative) 08/17/17 15:05 Urine Glucose (UA) 50 mg/dL (Negative) 08/17/17 15:05 Urine Ketones Neg mg/dL (Negative) 08/17/17 15:05 Urine Blood Neg (Negative) 08/17/17 15:05 Urine Nitrite Neg (Negative) 08/17/17 15:05 Urine Bilirubin Neg (Negative) 08/17/17 15:05 Urine Urobilinogen < 2.0 mg/dL (<2.0) 08/17/17 15:05 Ur Leukocyte Esterase Neg (Negative) 08/17/17 15:05 Urine WBC (Auto) < 1.0 /HPF (0.0-6.0) 08/17/17 15:05 Urine RBC (Auto) 2.0 /HPF (0.0-6.0) 08/17/17 15:05 U Epithel Cells (Auto) 2.0 /HPF (0-13.0) 08/17/17 15:05 Urine Bacteria (Auto) 1+ /HPF (Negative) 08/17/17 15:05
[2017-08-20] MEDS: DUONEB *Not for PRN Use IH SCH ×3 (09:25→20:01)
[2017-08-20] MEDS: HumaLOG SUB-Q SCH ×3 (09:30→17:30)
[2017-08-20] MEDS ORDERED: LOVENOX SUB-Q SCH (10:00)
--- NOTE | 2017-08-20 10:01 | Progress Note ---
Assessment and Plan Atypical chest pain: Pt feels episode of CP was related to hydralazine. COPD exacerbation Uncontrolled HTN Acute renal failure DM Obesity hypoventilation syndrome Conservative cardiac management. Subjective Date of service: 08/20/17 Interval history: Patient denies chest pain. Objective Vital Signs Temp Pulse Pulse Resp Resp BP Pulse Ox 08/20/17 09:33 99 08/20/17 09:25 87 20 08/20/17 06:07 98.3 F 75 18 113/61 92 08/19/17 23:30 84 196/110 08/19/17 22:41 94 H 229/124 08/19/17 22:35 91 H 18 08/19/17 22:10 94 H 18 08/19/17 22:07 97 08/19/17 22:00 18 08/19/17 17:02 98.8 F 97 H 20 141/83 95 08/19/17 13:22 92 H 20 08/19/17 13:12 84 20 08/19/17 11:11 98.5 F 83 20 127/78 96 - Physical Examination General: No Apparent Distress HEENT: Positive: PERRL Cardiac: Positive: Reg Rate and Rhythm Neuro: Positive: Grossly Intact Extremities: Absent: edema - Labs and Meds CBC 08/20/17 Range/Units 06:57 WBC 12.3 H (4.5-11.0) K/mm3 RBC 4.03 (3.65-5.03) M/mm3 Hgb 10.3 (10.1-14.3) gm/dl Hct 33.8 (30.3-42.9) % Plt Count 286 (140-440) K/mm3 Lymph # 2.6 (1.2-5.4) K/mm3 [place] # 1.0 H (0.0-0.8) K/mm3 Eos # 0.1 (0.0-0.4) K/mm3 Baso # 0.1 (0.0-0.1) K/mm3 Comprehensive Metabolic Panel 08/20/17 Range/Units 06:57 Sodium 141 (137-145) mmol/L Potassium 4.8 (3.6-5.0) mmol/L Chloride 101.5 (98-107) mmol/L Carbon Dioxide 28 (22-30) mmol/L BUN 35 H (7-17) mg/dL Creatinine 2.0 H (0.7-1.2) mg/dL Glucose 145 H (65-100) mg/dL Calcium 10.1 (8.4-10.2) mg/dL
[2017-08-20] MEDS: ASPIRIN PO SCH (10:21)
[2017-08-20] MEDS: TYLENOL PO PRN ×2 (10:21→22:25)
[2017-08-20] MEDS: NORVASC PO SCH (10:22)
[2017-08-20] MEDS: COREG PO SCH ×2 (10:22→22:24)
[2017-08-20] MEDS: LANTUS SUB-Q SCH (22:26)
[2017-08-21] MEDS: ZOSYN/NS 4.5GM/100ML 4.5 GM/100 ML VIAL IV SCH ×3 (05:15→22:16)
--- NOTE | 2017-08-21 07:25 | Ultrasound Report ---
ULTRASOUND RENAL BILATERAL HISTORY: Acute renal failure. TECHNIQUE: transabdominal ultrasound with color Doppler interrogation. FINDINGS: Scans of the kidneys show normal renal contours. There is normal central calyceal clustering and good preservation of the cortical thickness. There is no evidence of mass or hydronephrosis. The bladder is empty and poorly evaluated. An incidental finding of an enlarged uterus measuring up to 12 cm in length is noted. This probably represents uterine fibroid disease. Consider dedicated pelvic ultrasound if needed. IMPRESSION: Unremarkable renal ultrasound. Enlarged uterus.
[2017-08-21] MEDS: DUONEB *Not for PRN Use IH SCH ×3 (07:37→21:01)
[2017-08-21] MEDS: HumaLOG SUB-Q SCH ×3 (08:57→17:30)
[2017-08-21 09:15] LABS: Basophils # (Auto) 0.1 K/mm3 (0.0-0.1); Basophils % (Auto) 0.6 % (0.0-1.8); Eosinophils # (Auto) 0.1 K/mm3 (0.0-0.4); Eosinophils % (Auto) 0.8 % (0.0-4.3); Hematocrit 33.4 % (30.3-42.9); Hemoglobin 10.3 gm/dl (10.1-14.3); Lymphocytes % (Auto) 16.9 % (13.4-35.0); Mean Corpuscular HGB Conc 31 % (30-34); Mean Corpuscular Hemoglobin 26 pg (28-32); Mean Corpuscular Volume 84 fl (79-97); Monocytes # (Auto) 1.1 K/mm3 (0.0-0.8); Monocytes % (Auto) 8.9 % (0.0-7.3); Platelet Count 289 K/mm3 (140-440); Red Blood Count 3.99 M/mm3 (3.65-5.03); Red Cell Distribution Width 15.8 % (13.2-15.2)
--- NOTE | 2017-08-21 09:22 | Progress Note ---
Assessment and Plan Atypical chest pain: resolved Pt feels episode of CP was related to hydralazine. COPD exacerbation Uncontrolled HTN Acute renal failure DM Obesity Conservative cardiac management. Subjective Date of service: 08/21/17 Interval history: Patient denies chest pain. Reports her breathing is improving. Objective Vital Signs Temp Pulse Pulse Resp Resp Resp BP 08/21/17 06:17 98.2 F 75 18 157/89 08/20/17 23:15 98.5 F 84 18 168/92 08/20/17 22:25 24 08/20/17 22:24 82 140/72 08/20/17 22:00 24 08/20/17 20:53 24 08/20/17 20:29 08/20/17 20:20 91 H 18 08/20/17 20:00 91 H 18 08/20/17 18:00 99.0 F 94 H 20 161/94 08/20/17 14:00 88 18 08/20/17 12:58 99.3 F 80 20 134/77 08/20/17 09:33 08/20/17 09:25 87 20 Pulse Ox 08/21/17 06:17 90 08/20/17 23:15 95 08/20/17 22:25 08/20/17 22:24 08/20/17 22:00 08/20/17 20:53 08/20/17 20:29 98 08/20/17 20:20 08/20/17 20:00 08/20/17 18:00 95 08/20/17 14:00 08/20/17 12:58 91 08/20/17 09:33 99 08/20/17 09:25 - Physical Examination General: No Apparent Distress HEENT: Positive: PERRL Cardiac: Positive: Reg Rate and Rhythm Neuro: Positive: Grossly Intact Extremities: Absent: edema - Labs and Meds CBC 08/21/17 Range/Units 08:19 WBC 12.0 H (4.5-11.0) K/mm3 RBC 3.99 (3.65-5.03) M/mm3 Hgb 10.3 (10.1-14.3) gm/dl Hct 33.4 (30.3-42.9) % Plt Count 289 (140-440) K/mm3 Lymph # 2.0 (1.2-5.4) K/mm3 [place] # 1.1 H (0.0-0.8) K/mm3 Eos # 0.1 (0.0-0.4) K/mm3 Baso # 0.1 (0.0-0.1) K/mm3
[2017-08-21] MEDS: LOVENOX SUB-Q SCH (11:01)
[2017-08-21] MEDS: PROTONIX PO SCH (11:02)
[2017-08-21] MEDS: ASPIRIN PO SCH (11:02)
[2017-08-21] MEDS: COREG PO SCH ×2 (11:04→22:17)
[2017-08-21] MEDS: NORVASC PO SCH (11:04)
[2017-08-21] MEDS: PERCOCET 5/325 PO PRN ×2 (11:23→22:27)
[2017-08-21] MEDS: SODIUM CHLORIDE FLUSH SYRINGE 10 ML IV SCH ×2 (11:24→22:20)
[2017-08-21] MEDS: CATAPRES PO SCH ×2 (13:14→22:17)
--- NOTE | 2017-08-21 18:06 | Progress Note ---
Assessment and Plan Assessment and plan: Mr. Bello is 57 yo woman with a history of hypertension, type 2 DM, LENNOX on cpap, copd, Dyslipidemia and chronic hypoxic respiratory failure on 4 Liters of home O2 with sob. -Sepsis bronchitis, poa: IV antibiotic therapy, IVF resuscitation, monitor uop q shift, Chest x ray, urinalysis, -Obesity hypoventilation syndrome: nebulizer therapy, NIPPV, Chest x ray. -Morbid obesity, bmi 58.8 -Acute COPD exacerbation: Supplemental oxygen, nebulizer therapy, IV steroids, IV antibiotic therapy, chest x ray -Hypertensive urgency: IV hydralazine, monitor BP q shift, resume prehospital antihypertensive therapy -Acute on chronic hypoxic Respiratory failure: Supplemental oxygen, nebulizer therapy, NIPPV as clinically indicated, -DVT prophylaxis: scd to ble while in bed start Clonidine today once bp stable can discharge History Interval history: Patient was seen and examined. Follow-up on current diagnosis. Overnight uneventful. Patient denies any chest pain, shortness breath, nausea/vomiting or severe headaches. Imaging, nursing note, chart, labs and old chart reviewed. Discussed with patient. Hospitalist Physical - Physical exam Narrative exam: GEN: WDWN, NAD, Awake, Alert, Orientated, bmi 58.8 HEENT: NCAT, EOMI, PERRL, OP Clear NECK: supple, no adenopathy, no thyromegaly, no JVD CVS/HEART: RRR, normal S1S2, pulses present bilaterally CHEST/LUNGS: CTA B, Symmetrical chest expansion, good air entry bilaterally GI/Abdomen: soft, NTND, good bowel sounds, no guarding or rebound /Bladder: no suprapubic tenderness, no CVA or paraspinal tenderness EXT/Skin: no c/c/e, no obvious rash MSK: FROM x 4 Neuro: CN 2-12 grossly intact, no new focal deficits Psych: calm - Constitutional Vitals: Temp Pulse Resp BP Pulse Ox 98.8 F 77 18 136/77 95 08/21/17 16:34 08/21/17 16:34 08/21/17 16:34 08/21/17 16:34 08/21/17 16:34 General appearance: Present: no acute distress Results - Labs CBC & Chem 7: 08/22/17 06:06 08/22/17 06:06 Labs: Laboratory Last Values WBC 12.0 K/mm3 (4.5-11.0) H 08/21/17 08:19 RBC 3.99 M/mm3 (3.65-5.03) 08/21/17 08:19 Hgb 10.3 gm/dl (10.1-14.3) 08/21/17 08:19 Hct 33.4 % (30.3-42.9) 08/21/17 08:19 MCV 84 fl (79-97) 08/21/17 08:19 MCH 26 pg (28-32) L 08/21/17 08:19 MCHC 31 % (30-34) 08/21/17 08:19 RDW 15.8 % (13.2-15.2) H 08/21/17 08:19 Plt Count 289 K/mm3 (140-440) 08/21/17 08:19 Lymph % (Auto) 16.9 % (13.4-35.0) 08/21/17 08:19 [place] % (Auto) 8.9 % (0.0-7.3) H 08/21/17 08:19 Eos % (Auto) 0.8 % (0.0-4.3) 08/21/17 08:19 Baso % (Auto) 0.6 % (0.0-1.8) 08/21/17 08:19 Lymph # 2.0 K/mm3 (1.2-5.4) 08/21/17 08:19 [place] # 1.1 K/mm3 (0.0-0.8) H 08/21/17 08:19 Eos # 0.1 K/mm3 (0.0-0.4) 08/21/17 08:19 Baso # 0.1 K/mm3 (0.0-0.1) 08/21/17 08:19 Seg Neutrophils % 72.8 % (40.0-70.0) H 08/21/17 08:19 Seg Neutrophils # 8.8 K/mm3 (1.8-7.7) H 08/21/17 08:19 PT 12.5 Sec. (12.2-14.9) 08/17/17 13:27 INR 0.89 (0.87-1.13) 08/17/17 13:27 APTT 29.5 Sec. (24.2-36.6) 08/17/17 13:27 Sodium 140 mmol/L (137-145) 08/21/17 08:19 Potassium 4.8 mmol/L (3.6-5.0) 08/21/17 08:19 Chloride 100.5 mmol/L (98-107) 08/21/17 08:19 Carbon Dioxide 28 mmol/L (22-30) 08/21/17 08:19 Anion Gap 16 mmol/L 08/21/17 08:19 BUN 37 mg/dL (7-17) H 08/21/17 08:19 Creatinine 1.8 mg/dL (0.7-1.2) H 08/21/17 08:19 Estimated GFR 35 ml/min 08/21/17 08:19 BUN/Creatinine Ratio 21 % 08/21/17 08:19 Glucose 115 mg/dL (65-100) H 08/21/17 08:19 POC Glucose 242 (70-105) H 08/21/17 16:41 Lactic Acid 1.10 mmol/L (0.7-2.0) 08/18/17 03:58 Calcium 10.0 mg/dL (8.4-10.2) 08/21/17 08:19 Phosphorus 2.50 mg/dL (2.5-4.5) 08/17/17 13:27 Magnesium 1.70 mg/dL (1.7-2.3) 08/17/17 13:27 Total Bilirubin 0.30 mg/dL (0.1-1.2) 08/17/17 13:27 Direct Bilirubin < 0.2 mg/dL (0-0.2) 08/17/17 13:27 Indirect Bilirubin 0.1 mg/dL 08/17/17 13:27 AST 12 units/L (5-40) 08/17/17 13:27 ALT 11 units/L (7-56) 08/17/17 13:27 Alkaline Phosphatase 99 units/L (35-129) 08/17/17 13:27 Troponin T < 0.010 ng/mL (0.00-0.029) 08/17/17 13:27 NT-Pro-B Natriuret Pep 343.2 pg/mL (0-900) 08/17/17 13:27 Total Protein 8.1 g/dL (6.3-8.2) 08/17/17 13:27 Albumin 3.5 g/dL (3.9-5) L 08/17/17 13:27 Albumin/Globulin Ratio 0.8 % 08/17/17 13:27 Urine Color Yellow (Yellow) 08/17/17 15:05 Urine Turbidity Clear (Clear) 08/17/17 15:05 Urine pH 7.0 (5.0-7.0) 08/17/17 15:05 Ur Specific [place] 1.017 (1.003-1.030) 08/17/17 15:05 Urine Protein >500 mg/dL (Negative) 08/17/17 15:05 Urine Glucose (UA) 50 mg/dL (Negative) 08/17/17 15:05 Urine Ketones Neg mg/dL (Negative) 08/17/17 15:05 Urine Blood Neg (Negative) 08/17/17 15:05 Urine Nitrite Neg (Negative) 08/17/17 15:05 Urine Bilirubin Neg (Negative) 08/17/17 15:05 Urine Urobilinogen < 2.0 mg/dL (<2.0) 08/17/17 15:05 Ur Leukocyte Esterase Neg (Negative) 08/17/17 15:05 Urine WBC (Auto) < 1.0 /HPF (0.0-6.0) 08/17/17 15:05 Urine RBC (Auto) 2.0 /HPF (0.0-6.0) 08/17/17 15:05 U Epithel Cells (Auto) 2.0 /HPF (0-13.0) 08/17/17 15:05 Urine Bacteria (Auto) 1+ /HPF (Negative) 08/17/17 15:05
[2017-08-21] MEDS ORDERED: DIFLUCAN PO ONE (18:30)
[2017-08-21] MEDS: LANTUS SUB-Q SCH (22:17)
[2017-08-22] MEDS: PERCOCET 5/325 PO PRN (06:09)
[2017-08-22] MEDS: ZOSYN/NS 4.5GM/100ML 4.5 GM/100 ML VIAL IV SCH ×2 (06:09→15:32)
[2017-08-22] MEDS: CATAPRES PO PRN (06:09)
[2017-08-22] MEDS: DUONEB *Not for PRN Use IH SCH ×3 (07:38→20:45)
[2017-08-22 07:51] LABS: Basophils # (Auto) 0.1 K/mm3 (0.0-0.1); Basophils % (Auto) 0.8 % (0.0-1.8); Eosinophils # (Auto) 0.1 K/mm3 (0.0-0.4); Eosinophils % (Auto) 1.1 % (0.0-4.3); Hematocrit 33.1 % (30.3-42.9); Hemoglobin 10.3 gm/dl (10.1-14.3); Lymphocytes # (Auto) 1.7 K/mm3 (1.2-5.4); Lymphocytes % (Auto) 14.3 % (13.4-35.0); Mean Corpuscular HGB Conc 31 % (30-34); Mean Corpuscular Volume 84 fl (79-97); Monocytes # (Auto) 1.2 K/mm3 (0.0-0.8); Monocytes % (Auto) 9.8 % (0.0-7.3); Platelet Count 282 K/mm3 (140-440); Red Blood Count 3.96 M/mm3 (3.65-5.03); Red Cell Distribution Width 15.8 % (13.2-15.2)
[2017-08-22 08:00] LABS: Mean Corpuscular Hemoglobin 26 pg (28-32)
[2017-08-22] MEDS: COREG PO SCH (09:07)
[2017-08-22] MEDS: ASPIRIN PO SCH (09:07)
[2017-08-22] MEDS: HumaLOG SUB-Q SCH ×2 (09:07→17:55)
[2017-08-22] MEDS: PROTONIX PO SCH (09:08)
[2017-08-22] MEDS: CATAPRES PO SCH (09:08)
[2017-08-22] MEDS: LOVENOX SUB-Q SCH (09:08)
[2017-08-22] MEDS: NORVASC PO SCH (09:12)
--- NOTE | 2017-08-22 10:34 | Progress Note ---
Assessment and Plan - Patient Problems (1) Atypical chest pain Current Visit: Yes Status: Acute Plan to address problem: Conservative cardiac management, chest pain resolved on discontinuation of hydralazine. Subjective Date of service: 08/22/17 Interval history: Patient is comfortable, no further chest pain, no cardiac complaints. Objective Vital Signs Temp Pulse Pulse Resp Resp BP BP 08/22/17 07:47 84 18 08/22/17 07:40 08/22/17 07:39 81 18 08/22/17 06:09 172/111 08/21/17 21:15 85 18 08/21/17 21:03 83 18 08/21/17 21:02 08/21/17 16:34 98.8 F 77 18 136/77 08/21/17 15:13 78 145/83 08/21/17 13:44 78 18 08/21/17 13:35 80 18 08/21/17 12:00 98.6 F 76 20 172/92 08/21/17 11:04 78 191/110 Pulse Ox 08/22/17 07:47 08/22/17 07:40 96 08/22/17 07:39 08/22/17 06:09 08/21/17 21:15 08/21/17 21:03 08/21/17 21:02 99 08/21/17 16:34 95 08/21/17 15:13 08/21/17 13:44 08/21/17 13:35 08/21/17 12:00 99 08/21/17 11:04 - Physical Examination General: No Apparent Distress HEENT: Positive: PERRL Neck: Positive: neck supple Cardiac: Positive: Reg Rate and Rhythm Lungs: Positive: Decreased Breath Sounds Neuro: Positive: Grossly Intact Abdomen: Positive: Soft, Active Bowel Sounds Skin: Positive: Clear Extremities: Absent: edema - Labs and Meds CBC 08/22/17 Range/Units 06:06 WBC 12.1 H (4.5-11.0) K/mm3 RBC 3.96 (3.65-5.03) M/mm3 Hgb 10.3 (10.1-14.3) gm/dl Hct 33.1 (30.3-42.9) % Plt Count 282 (140-440) K/mm3 Lymph # 1.7 (1.2-5.4) K/mm3 [place] # 1.2 H (0.0-0.8) K/mm3 Eos # 0.1 (0.0-0.4) K/mm3 Baso # 0.1 (0.0-0.1) K/mm3 Comprehensive Metabolic Panel 08/22/17 Range/Units 06:06 Sodium 141 (137-145) mmol/L Potassium 4.7 (3.6-5.0) mmol/L Chloride 102.3 (98-107) mmol/L Carbon Dioxide 25 (22-30) mmol/L BUN 36 H (7-17) mg/dL Creatinine 1.8 H (0.7-1.2) mg/dL Glucose 110 H (65-100) mg/dL Calcium 10.0 (8.4-10.2) mg/dL
--- NOTE | 2017-08-22 14:29 | Discharge Summary ---
Providers - Providers Date of Admission: 08/17/17 15:11 Date of discharge: 08/22/17 Attending physician: GLEN DAHL 08/18/17 11:22 Consult to Cardiology [CONS] Routine Consulting Provider: NATTY LOVE Reason For Exam: CP Primary care physician: BREAD AND PASTRY BAKER Hospitalization Condition: Stable Hospital course: Mr. Bello is 57 yo woman with a history of hypertension, type 2 DM, LENNOX on cpap, copd, Dyslipidemia and chronic hypoxic respiratory failure on 4 Liters of home O2 with sob. -Sepsis bronchitis, poa: IV antibiotic therapy, IVF resuscitation, monitor uop q shift, Chest x ray, urinalysis, -Acute on chronic hypoxic Respiratory failure: Supplemental oxygen, nebulizer therapy, NIPPV as clinically indicated, -Obesity hypoventilation syndrome: nebulizer therapy, NIPPV, Chest x ray. -Morbid obesity, bmi 58.8 -Acute COPD exacerbation: Supplemental oxygen, nebulizer therapy, IV steroids, IV antibiotic therapy, chest x ray -Hypertensive urgency: IV hydralazine, monitor BP q shift, resume prehospital antihypertensive therapy -DVT prophylaxis: scd to ble while in bed started Clonidine bp stable can discharge Disposition: [id number] HOME UNDER HOME [facility] Time spent for discharge: 35 minutes Core Measure Documentation - Palliative Care Palliative Care/ Comfort Measures: Not Applicable - Core Measures Any of the following diagnoses?: none - VTE Discharge Requirements Deep Vein Thrombosis/Pulmonary Embolism Present on Admission: No Has pt received <5 days of overlap therapy or INR<2.0: No Anticoagulant overlap therapy prescribed at discharge: No Contraindication No Overlap Therapy order at DC: Not Indicated Exam - Physical Exam Narrative exam: GEN: WDWN, NAD, Awake, Alert, Orientated, bmi 58.8 HEENT: NCAT, EOMI, PERRL, OP Clear NECK: supple, no adenopathy, no thyromegaly, no JVD CVS/HEART: RRR, normal S1S2, pulses present bilaterally CHEST/LUNGS: CTA B, Symmetrical chest expansion, good air entry bilaterally GI/Abdomen: soft, NTND, good bowel sounds, no guarding or rebound /Bladder: no suprapubic tenderness, no CVA or paraspinal tenderness EXT/Skin: no c/c/e, no obvious rash MSK: FROM x 4 Neuro: CN 2-12 grossly intact, no new focal deficits Psych: calm - Constitutional Vitals: Temp Pulse Resp BP Pulse Ox 97.9 F 66 24 128/73 95 08/22/17 11:41 08/22/17 11:41 08/22/17 11:41 08/22/17 11:41 08/22/17 11:41 Plan Activity: up only with assistance, fall precautions, other (no strenous activity ) Diet: low salt, diabetic Special Instructions: record daily BP diary, record blood sugar diary (with meals) Follow up with: CLARY MONTIEL MD [Primary Care Provider] - 3-5 Days NATTY LOVE MD [Staff Physician] - 7 Days Prescriptions: AtorvaSTATin [Lipitor] 40 mg PO QHS #30 tablet Insulin Glargine [Lantus VIAL] 35 units SUB-Q QHS 30 Days ALBUTEROL NEB's [Proventil 0.083% NEBS] 2.5 mg IH Q3HRT PRN #30 nebu PRN Reason: Shortness Of Breath amLODIPine [Norvasc] 10 mg PO QDAY #30 tablet Carvedilol [Coreg] 25 mg PO BID #60 tablet cloNIDine [Catapres] 0.2 mg PO Q12HR #60 tablet Levofloxacin [Levaquin] 750 mg PO QDAY #2 tablet methylPREDNISolone [Medrol Dose Olegario] 1 dose PO DAILY #1 pack oxyCODONE /ACETAMINOPHEN [Percocet 5/325 mg] 1 tab PO Q8H PRN #9 tablet PRN Reason: Pain, Moderate (4-6) Pantoprazole [Protonix TAB] 40 mg PO QDAY #30 tablet Ipratropium/Albuterol Sulfate [DUONEB *Not for PRN Use*] 1 ampul IH BIDRT #30 ampul.neb
[2017-08-22 18:15] VITALS: BP 143/74
== END 2017-08-22 22:15 | disposition home health service (06) | DRG 871 ==
LOC: ED 12:30 → 3A 15:11
PROVIDERS: ADMIT Internal Medicine; ATTEND Internal Medicine
PROC: 3E0234Z Introduction of Serum, Toxoid and Vaccine into Muscle, Percutaneous Approach (ICD-10-PCS; principal; 2017-08-20)
DX: A41.9 Sepsis, unspecified organism (principal); N17.0 Acute kidney failure with tubular necrosis; J96.21 Acute and chronic respiratory failure with hypoxia; J44.1 Chronic obstructive pulmonary disease with (acute) exacerbation; E66.2 Morbid (severe) obesity with alveolar hypoventilation; Z68.43 Body mass index [BMI] 50.0-59.9, adult; I10 Essential (primary) hypertension; I16.0 Hypertensive urgency; R07.89 Other chest pain; E11.9 Type 2 diabetes mellitus without complications; E78.5 Hyperlipidemia, unspecified; Z90.49 Acquired absence of other specified parts of digestive tract; Z71.3 Dietary counseling and surveillance; Z79.4 Long term (current) use of insulin; Z99.81 Dependence on supplemental oxygen; Z23 Encounter for immunization
CPT/HCPCS: 36415; 71045; 76770; 80048; 80074; 81001; 82140; 82962; 83735; 83880; 84100; 84484; 85025; 85610; 85730; 87040; 90732; 93005; 93010; 94640; 94644; 94760; 96374; 96376; A9270-GY; J0360; J1650; J1815; J2405; J2543; J2920; J3370; J3475; J7030; J7040

== ENCOUNTER 2018-07-10 18:08 | Inpatient (IN) | payer MEDICARE ==
[2018-07-10] MEDS ORDERED: MAGNESIUM SULFATE 2GM/50ML 2 GM/50 ML BAG IV ONE (19:59)
[2018-07-10] MEDS ORDERED: ASPIRIN PO ONE (19:59)
[2018-07-10] MEDS ORDERED: MORPHINE IV ONE (19:59)
[2018-07-10] MEDS ORDERED: SOLU-Medrol IV ONE (19:59)
[2018-07-10] MEDS ORDERED: DUONEB *Not for PRN Use IH ONE (19:59)
--- NOTE | 2018-07-10 20:02 | Emergency Department Report ---
ED Shortness of Breath HPI - General Chief Complaint: Dyspnea/Respdistress Stated Complaint: SOB Time Seen by Provider: 07/10/18 19:45 Source: patient, EMS Mode of arrival: Stretcher Limitations: No Limitations - History of Present Illness Initial Comments: Patient is a 58-year-old female that presents emergency room with complaints of shortness of breath and chest pain 5 hours. Patient states she is also having right arm pain. Patient states her chest pain is a 8 out of 10. Patient states her right arm pain as a 10 out of 10. Patient states her arm pain is not radiating. Patient states her chest pain is not radiating. Patient states her chest pain is better with rest and worse with exertion. Patient states her shortness of breath is better with rest and worse with exertion. Patient states her right arm pain is better with rest and worse with movement. Patient states she is on 4 L of oxygen at home. Patient states her shortness of breath started while she was sitting down. Patient states she has a history of CHF and COPD. Patient denies fever chills. Patient denies nausea vomiting. Patient denies abdominal pain. MD Complaint: shortness of breath -: Sudden Severity: severe Quality: stabbing Consistency: constant Improves With: rest Worsens With: exertion Known History Of: COPD, congestive heart failure Associated Symptoms: chest pain, cough Treatments Prior to Arrival: none - Related Data Home Oxygen Therapy: Yes Home Oxygen Amount: 4 Liters Previous Rx's Medication Instructions Recorded Last Taken Type Carvedilol [Coreg] 25 mg PO BID #60 tablet 12/02/17 Unknown Rx Insulin Aspart [NovoLOG Flexpen] 8 units SQ AC #1 insuln.pen 12/02/17 07/10/18 Rx cloNIDine [Catapres] 0.2 mg PO Q12HR #60 tablet 12/02/17 Unknown Rx ALBUTEROL NEB's [Proventil 0.083% 2.5 mg IH Q3HRT PRN #60 nebu 07/04/18 Unknown Rx NEBS] Allergies Allergy/AdvReac Type Severity Reaction Status Date / Time No Known Allergies Allergy Unverified 05/07/18 18:25 ED Review of Systems ROS: Stated complaint: SOB Other details as noted in HPI Constitutional: denies: chills, fever Eyes: denies: eye pain, eye discharge, vision change ENT: denies: ear pain, throat pain Respiratory: cough, shortness of breath, SOB with exertion, SOB at rest. denies: wheezing Cardiovascular: chest pain. denies: palpitations Endocrine: no symptoms reported Gastrointestinal: denies: abdominal pain, nausea, diarrhea Genitourinary: denies: urgency, dysuria, discharge Musculoskeletal: denies: back pain, joint swelling, arthralgia Skin: denies: rash, lesions Neurological: denies: headache, weakness, paresthesias Psychiatric: denies: anxiety, depression Hematological/Lymphatic: denies: easy bleeding, easy bruising ED Past Medical Hx - Past Medical History Previous Medical History?: Yes Hx Hypertension: Yes Hx Heart Attack/AMI: No Hx Congestive Heart Failure: Yes Hx Diabetes: Yes Hx Deep Vein Thrombosis: No Hx Pulmonary Embolism: No Hx Liver Disease: No Hx Renal Disease: No Hx Sickle Cell Disease: No Hx Arthritis: No Hx Seizures: No Hx Kidney Stones: No Hx Asthma: Yes Hx COPD: Yes Hx Tuberculosis: No Hx Dementia: No Hx HIV: No Additional medical history: high cholesterol - Surgical History Past Surgical History?: Yes Hx Coronary Stent: No Hx Open Heart Surgery: No Hx Pacemaker: No Hx Internal Defibrillator: No Hx Cholecystectomy: Yes Hx Appendectomy: Yes Hx Breast Surgery: No - Family History Family history: hypertension - Social History Smoking Status: Never Smoker Substance Use Type: None - Medications Home Medications: Home Medications Medication Instructions Recorded Confirmed Last Taken Type Carvedilol [Coreg] 25 mg PO BID #60 tablet 12/02/17 07/10/18 Unknown Rx Insulin Aspart [NovoLOG Flexpen] 8 units SQ AC #1 insuln.pen 12/02/17 07/10/18 07/10/18 Rx cloNIDine [Catapres] 0.2 mg PO Q12HR #60 tablet 12/02/17 07/10/18 Unknown Rx ALBUTEROL NEB's [Proventil 0.083% 2.5 mg IH Q3HRT PRN #60 nebu 07/04/18 07/10/18 Unknown Rx NEBS] ED Physical Exam - General Limitations: No Limitations General appearance: alert, in distress - Head Head exam: Present: atraumatic, normocephalic - Eye Eye exam: Present: normal appearance - ENT ENT exam: Present: mucous membranes moist - Neck Neck exam: Present: normal inspection - Respiratory Respiratory exam: Present: respiratory distress, wheezes, rhonchi - Cardiovascular Cardiovascular Exam: Present: regular rate, normal rhythm, tachycardia. Absent: systolic murmur, diastolic murmur, rubs, gallop - GI/Abdominal GI/Abdominal exam: Present: soft, normal bowel sounds. Absent: distended, tenderness, guarding - Rectal Rectal exam: Present: deferred - Extremities Exam Extremities exam: Present: normal inspection - Back Exam Back exam: Present: normal inspection - Neurological Exam Neurological exam: Present: alert, oriented X3 - Psychiatric Psychiatric exam: Present: normal affect, normal mood - Skin Skin exam: Present: warm, dry, intact, normal color. Absent: rash ED Course Vital Signs 07/10/18 07/10/18 07/10/18 18:53 18:59 19:02 Temperature 98.2 F Pulse Rate 113 H 114 H Pulse Rate [ Anterior Bilateral] Respiratory 20 20 20 Rate Respiratory Rate [Anterior Bilateral] Blood Pressure 140/80 140/80 Blood Pressure 140/80 [Left] O2 Sat by Pulse 98 98 98 Oximetry 07/10/18 07/10/18 07/10/18 20:00 21:56 22:00 Temperature Pulse Rate 113 H 107 H Pulse Rate [ 105 H Anterior Bilateral] Respiratory 33 H 21 Rate Respiratory 25 H Rate [Anterior Bilateral] Blood Pressure 140/80 140/80 Blood Pressure [Left] O2 Sat by Pulse 98 97 Oximetry 07/10/18 07/10/18 07/10/18 22:03 22:24 22:26 Temperature Pulse Rate 112 H 110 H Pulse Rate [ 106 H Anterior Bilateral] Respiratory 25 H 22 Rate Respiratory 26 H Rate [Anterior Bilateral] Blood Pressure 140/80 140/80 Blood Pressure [Left] O2 Sat by Pulse 97 95 Oximetry 07/10/18 22:27 Temperature Pulse Rate 110 H Pulse Rate [ Anterior Bilateral] Respiratory 25 H Rate Respiratory Rate [Anterior Bilateral] Blood Pressure 134/82 Blood Pressure [Left] O2 Sat by Pulse 92 Oximetry - Reevaluation(s) Reevaluation #1: Discussed all results with patient. Patient will be admitted to the hospitalist service. Patient agrees to plan of care. Patient's lung sounds have improved. Patient resting. 07/10/18 21:46 - Consultations Consultation #1: Hospitalist consultation for admission. Hospitalist to admit patient. Hospitalist to assume care patient. 07/10/18 21:46 ED Medical Decision Making - Lab Data Result diagrams: 07/10/18 20:10 07/10/18 20:10 - EKG Data -: EKG Interpreted by Me EKG shows normal: sinus rhythm, axis, intervals, QRS complexes, ST-T waves Rate: tachycardia - EKG Data Interpretation: LVH - Radiology Data Radiology results: report reviewed, image reviewed - Medical Decision Making Patient is a 58-year-old female Emergency room with complaints of chest pain and shortness of breath. Patient also complained of right arm pain. Patient states her chest pain was started 5 hours prior to arrival. Patient is on 4 L of home oxygen. Patient was admitted to the hospitalist service. Patient's findings consistent with a COPD exacerbation. Patient given multiple medications. Patient found to be hypoxic. Patient to be tachycardic. Patient's lung sounds improved with medications. - Differential Diagnosis hypoxia. COPD exacerbation. Shortness of breath.Distress. Chest pain Critical Care Time: Yes Critical care attestation.: If time is entered above; I have spent that time in minutes in the direct care of this critically ill patient, excluding procedure time. Critical Care Time: 45 minutes ED Disposition Clinical Impression: SOB (shortness of breath), Hypoxia, COPD exacerbation, COPD exacerbation, Respiratory distress Chest pain Qualifiers: Chest pain type: unspecified Qualified Code(s): R07.9 - Chest pain, unspecified COPD (chronic obstructive pulmonary disease) Qualifiers: COPD type: unspecified COPD Qualified Code(s): J44.9 - Chronic obstructive pulmonary disease, unspecified Disposition: 09 OP ADMIT IP TO THIS HOSP Is pt being admited?: Yes Does the pt Need Aspirin: No Condition: Critical Time of Disposition: 21:48
[2018-07-10 20:29] LABS: Basophils # (Auto) 0.1 K/mm3 (0.0-0.1); Basophils % (Auto) 0.8 % (0.0-1.8); Eosinophils # (Auto) 0.2 K/mm3 (0.0-0.4); Eosinophils % (Auto) 1.4 % (0.0-4.3); Hematocrit 34.9 % (30.3-42.9); Lymphocytes # (Auto) 1.8 K/mm3 (1.2-5.4); Lymphocytes % (Auto) 12.3 % (13.4-35.0); Mean Corpuscular HGB Conc 32 % (30-34); Mean Corpuscular Volume 86 fl (79-97); Monocytes % (Auto) 7.1 % (0.0-7.3); Platelet Count 364 K/mm3 (140-440); Red Blood Count 4.07 M/mm3 (3.65-5.03); Red Cell Distribution Width 16.3 % (13.2-15.2)
[2018-07-10 20:59] LABS: Creatine Kinase MB 1.9 ng/mL (0.0-4.0)
[2018-07-10 21:03] LABS: Alanine Aminotransferase 13 units/L (7-56); Albumin 3.4 g/dL (3.9-5); BUN/Creatinine Ratio 12; Blood Urea Nitrogen 14 mg/dL (7-17); Calcium 9.5 mg/dL (8.4-10.2); Hemolysis Index 16
[2018-07-10] MEDS ORDERED: DILAUDID IV ONE (21:44)
[2018-07-10] MEDS ORDERED: DILAUDID ONE (21:45)
--- NOTE | 2018-07-10 23:00 | XRay Report ---
PROCEDURE: XR CHEST 1V AP TECHNIQUE: Chest radiograph single view. HISTORY: Dyspnea COMPARISONS: CT 05/09/2018 . FINDINGS: Heart: Prominent but stable cardiac silhouette. Mediastinum/Vessels: Prominent but stable contour of the superior mediastinum is likely related to va scular prominence. Lungs/Pleural space: No infiltrate, effusion, or pneumothorax. Bony thorax: No acute osseous abnormality. Life support devices: None. IMPRESSION: No pulmonary infiltrates. Prominent but stable cardiomediastinal silhouette. This document is electronically signed by Mirian Priest MD., Jul 10 2018 10:58:26 PM ET
[2018-07-10] MEDS ORDERED: TYLENOL PO PRN (23:25)
[2018-07-10] MEDS ORDERED: ZOFRAN IV PRN (23:25)
[2018-07-10] MEDS ORDERED: MORPHINE IV PRN (23:25)
--- NOTE | 2018-07-10 23:40 | History and Physical Report ---
History of Present Illness Date of examination: 07/10/18 Chief complaint: Shortness of breath History of present illness: Patient is a 58-year-old -Thai female with history of COPD/asthma on home 02 (4L) and CHF who presented to the ED on account of a few hours history of worsening shortness of breath. She has associated this chest pain, palpitation, leg swelling, two-pillow orthopnea and PND. She denies diaphoresis, cough, sore throat, runny nose or congestion. She also has positive history of headaches, nausea without vomiting and lightheadedness. No syncope or loss of consciousness Past History Past Medical History: COPD, diabetes, heart failure, hypertension, hyperlipidemia (Asthma, LENNOX), other Past Surgical History: appendectomy, cholecystectomy Social history: no significant social history (patient admits to secondhand cigarette smoking. She denies alcohol or illicit drug use) Family history: other (reviewed and noncontributory to COPD or CHF) Medications and Allergies Allergies Allergy/AdvReac Type Severity Reaction Status Date / Time No Known Allergies Allergy Unverified 05/07/18 18:25 Home Medications Medication Instructions Recorded Confirmed Last Taken Type Carvedilol [Coreg] 25 mg PO BID #60 tablet 12/02/17 07/10/18 Unknown Rx Insulin Aspart [NovoLOG Flexpen] 8 units SQ AC #1 insuln.pen 12/02/17 07/10/18 07/10/18 Rx cloNIDine [Catapres] 0.2 mg PO Q12HR #60 tablet 12/02/17 07/10/18 Unknown Rx ALBUTEROL NEB's [Proventil 0.083% 2.5 mg IH Q3HRT PRN #60 nebu 07/04/18 07/10/18 Unknown Rx NEBS] Active Meds: Active Medications Acetaminophen (Tylenol) 650 mg PO Q4H PRN PRN Reason: Pain MILD(1-3)/Fever >100.5/DIEGO Albuterol/Ipratropium (Duoneb *Not For Prn Use*) 1 ampul IH Q6HRT BALJINDER Enoxaparin Sodium (Lovenox) 40 mg SUB-Q QDAY BALJINDER Furosemide (Lasix) 40 mg IV BID BALJINDER Azithromycin 500 mg/ Sodium (Chloride) 250 mls @ 250 mls/hr IV Q24HR BALJINDER Methylprednisolone Sodium Succinate (Solu-Medrol) 80 mg IV Q6HR [facility] Morphine Sulfate (Morphine) 2 mg IV Q4H PRN PRN Reason: Pain, Moderate (4-6) Ondansetron HCl (Zofran) 4 mg IV Q8H PRN PRN Reason: Nausea And Vomiting Oxycodone/Acetaminophen (Percocet 5/325) 1 tab PO Q6H PRN PRN Reason: Pain, Moderate (4-6) Potassium Chloride (K-Dur) 20 meq PO QDAY BALJINDER Stop: 07/14/18 09:59 Sodium Chloride (Sodium Chloride Flush Syringe 10 Ml) 10 ml IV BID [facility] Sodium Chloride (Sodium Chloride Flush Syringe 10 Ml) 10 ml IV PRN PRN PRN Reason: LINE FLUSH Review of Systems All systems: negative (except as documented in the HPI, 14 point system reviewed were negative) Exam - Constitutional Vitals: Temp Pulse Resp BP Pulse Ox 98.2 F 110 H 25 H 134/82 92 07/10/18 18:59 07/10/18 22:27 07/10/18 22:27 07/10/18 22:27 07/10/18 22:27 General appearance: Present: no acute distress - EENT Eyes: Present: PERRL, EOM intact ENT: hearing intact, clear oral mucosa - Neck Neck: Present: supple - Respiratory Respiratory effort: normal Respiratory: bilateral: diminished, rales - Cardiovascular Rhythm: regular Heart Sounds: Present: S1 & S2 - Extremities Extremities: pulses symmetrical Extremity abnormal: edema (in bilateral lower extremities) - Abdominal General gastrointestinal: Present: soft, tender (mild and generalized), normal bowel sounds Female genitourinary: Present: deferred - Integumentary Integumentary: Present: clear, warm, dry - Musculoskeletal Musculoskeletal: generalized weakness - Psychiatric Psychiatric: appropriate mood/affect, intact judgment & insight - Neurologic Neurologic: moves all extremities Results - Labs CBC & Chem 7: 07/10/18 20:10 07/10/18 20:10 Labs: Laboratory Last Values WBC 14.2 K/mm3 (4.5-11.0) H 07/10/18 20:10 RBC 4.07 M/mm3 (3.65-5.03) 07/10/18 20:10 Hgb 11.0 gm/dl (10.1-14.3) 07/10/18 20:10 Hct 34.9 % (30.3-42.9) 07/10/18 20:10 MCV 86 fl (79-97) 07/10/18 20:10 MCH 27 pg (28-32) L 07/10/18 20:10 MCHC 32 % (30-34) 07/10/18 20:10 RDW 16.3 % (13.2-15.2) H 07/10/18 20:10 Plt Count 364 K/mm3 (140-440) 07/10/18 20:10 Lymph % (Auto) 12.3 % (13.4-35.0) L 07/10/18 20:10 [place] % (Auto) 7.1 % (0.0-7.3) 07/10/18 20:10 Eos % (Auto) 1.4 % (0.0-4.3) 07/10/18 20:10 Baso % (Auto) 0.8 % (0.0-1.8) 07/10/18 20:10 Lymph # 1.8 K/mm3 (1.2-5.4) 07/10/18 20:10 [place] # 1.0 K/mm3 (0.0-0.8) H 07/10/18 20:10 Eos # 0.2 K/mm3 (0.0-0.4) 07/10/18 20:10 Baso # 0.1 K/mm3 (0.0-0.1) 07/10/18 20:10 Seg Neutrophils % 78.4 % (40.0-70.0) H 07/10/18 20:10 Seg Neutrophils # 11.1 K/mm3 (1.8-7.7) H 07/10/18 20:10 Sodium 145 mmol/L (137-145) 07/10/18 20:10 Potassium 3.7 mmol/L (3.6-5.0) 07/10/18 20:10 Chloride 103.5 mmol/L (98-107) 07/10/18 20:10 Carbon Dioxide 30 mmol/L (22-30) 07/10/18 20:10 15 mmol/L 07/10/18 20:10 BUN 14 mg/dL (7-17) 07/10/18 20:10 1.2 mg/dL (0.7-1.2) 07/10/18 20:10 Estimated GFR 56 ml/min 07/10/18 20:10 12 % 07/10/18 20:10 Glucose 192 mg/dL (65-100) H 07/10/18 20:10 Lactic Acid 1.10 mmol/L (0.7-2.0) 07/10/18 20:10 Calcium 9.5 mg/dL (8.4-10.2) 07/10/18 20:10 < 0.20 mg/dL (0.1-1.2) 07/10/18 20:10 AST 11 units/L (5-40) 07/10/18 20:10 ALT 13 units/L (7-56) 07/10/18 20:10 91 units/L (35-129) 07/10/18 20:10 68 units/L (30-135) 07/10/18 20:10 CK-MB (CK-2) 1.9 ng/mL (0.0-4.0) 07/10/18 20:10 CK-MB (CK-2) Rel Index 2.7 (0-4) 07/10/18 20:10 < 0.010 ng/mL (0.00-0.029) 07/10/18 20:10 NT-Pro-B Natriuret Pep 330.3 pg/mL (0-900) 07/10/18 20:10 7.1 g/dL (6.3-8.2) 07/10/18 20:10 3.4 g/dL (3.9-5) L 07/10/18 20:10 0.9 % 07/10/18 20:10 Assessment and Plan Assessment and plan: Acute COPD/asthma exacerbation -Probably secondary to acute bronchitis -On IV steroids, antibiotic and nebulizer breathing treatment Acute on chronic diastolic heart failure with EF of 55-60% -On CHF protocol Acute on chronic respiratory failure with hypoxia -Continue oxygen supplementation as needed and duonebs Atypical chest pain, rule out ACS -Continue serial troponin level monitoring LENNOX -Patient is noncompliant with her CPAP at home DM2 with hyperglycemia -On SSI and Lantus SIRS -Probably due to noninfectious process -Chest x-ray negative. Follow-up urinalysis HTN -Stable -On antihypertensives, adjust as needed Morbid obesity with BMI of 56.5 -Lifestyle modification recommended DVT prophylaxis with Lovenox Disposition: For discharge when medically stable Time spent: 40 minutes
[2018-07-11] MEDS ORDERED: D50W (25GM) Syringe IV PRN (00:13)
[2018-07-11] MEDS ORDERED: APRESOLINE IV PRN (01:25)
[2018-07-11] MEDS: LASIX IV SCH ×3 (01:34→23:11)
[2018-07-11] MEDS: CATAPRES PO SCH ×3 (01:38→23:12)
[2018-07-11] MEDS: COREG PO SCH ×3 (01:39→23:12)
[2018-07-11] MEDS: SOLU-Medrol IV SCH ×5 (01:39→23:52)
[2018-07-11] MEDS: DUONEB *Not for PRN Use IH SCH ×4 (02:46→20:19)
[2018-07-11] MEDS: PERCOCET 5/325 PO PRN ×3 (02:46→23:51)
[2018-07-11] MEDS: LOVENOX SUB-Q SCH (09:15)
[2018-07-11] MEDS: HumaLOG SUB-Q SCH ×4 (09:16→23:11)
[2018-07-11] MEDS: SODIUM CHLORIDE FLUSH SYRINGE 10 ML IV SCH ×2 (09:17→23:13)
[2018-07-11] MEDS: LANTUS SUB-Q SCH (09:17)
[2018-07-11] MEDS ORDERED: K-DUR PO SCH (10:00)
[2018-07-11] MEDS: ZITHROMAX 500 MG in NACL 0.9% 250ML 250 ML IV SCH (13:58)
--- NOTE | 2018-07-11 15:50 | Progress Note ---
Assessment and Plan Assessment and plan: Acute COPD/asthma exacerbation -Probably secondary to acute bronchitis -On IV steroids, antibiotic and nebulizer breathing treatment Acute on chronic diastolic heart failure with EF of 55-60% -On CHF protocol Acute on chronic respiratory failure with hypoxia -Continue oxygen supplementation as needed and duonebs Atypical chest pain, rule out ACS -Continue serial troponin level monitoring LENNOX -Patient is noncompliant with her CPAP at home DM2 with hyperglycemia -On SSI and Lantus SIRS -Probably due to noninfectious process -Chest x-ray negative. Follow-up urinalysis HTN -Stable -On antihypertensives, adjust as needed Morbid obesity with BMI of 56.5 -Lifestyle modification recommended DVT prophylaxis with Lovenox Plan of care is reviewed with the patient and her nurse History Interval history: Patient seen and examined medical records reviewed No Overnight Events reported by nursing staff Admitted with acute exacerbation of COPD On oxygen nebulizers and IV steroids and IV antibiotics Vital signs reviewed Hospitalist Physical - Constitutional Vitals: Temp Pulse Resp BP Pulse Ox 98.4 F 72 16 132/80 97 07/11/18 11:50 07/11/18 15:09 07/11/18 15:09 07/11/18 11:50 07/11/18 11:50 General appearance: Present: no acute distress, well-nourished, obese (morbidly obese) - EENT Eyes: Present: PERRL, EOM intact - Neck Neck: Present: supple, normal ROM - Respiratory Respiratory effort: normal Respiratory: bilateral: diminished, wheezing, negative: rales, rhonchi - Cardiovascular Rhythm: regular Heart Sounds: Present: S1 & S2 - Extremities Extremities: no ischemia Extremity abnormal: edema - Abdominal General gastrointestinal: soft, non-tender, non-distended, normal bowel sounds - Integumentary Integumentary: Present: clear, warm - Psychiatric Psychiatric: appropriate mood/affect, cooperative - Neurologic Neurologic: moves all extremities Results - Labs CBC & Chem 7: 07/10/18 20:10 07/10/18 20:10 Labs: Laboratory Last Values WBC 14.2 K/mm3 (4.5-11.0) H 07/10/18 20:10 RBC 4.07 M/mm3 (3.65-5.03) 07/10/18 20:10 Hgb 11.0 gm/dl (10.1-14.3) 07/10/18 20:10 Hct 34.9 % (30.3-42.9) 07/10/18 20:10 MCV 86 fl (79-97) 07/10/18 20:10 MCH 27 pg (28-32) L 07/10/18 20:10 MCHC 32 % (30-34) 07/10/18 20:10 RDW 16.3 % (13.2-15.2) H 07/10/18 20:10 Plt Count 364 K/mm3 (140-440) 07/10/18 20:10 Lymph % (Auto) 12.3 % (13.4-35.0) L 07/10/18 20:10 [place] % (Auto) 7.1 % (0.0-7.3) 07/10/18 20:10 Eos % (Auto) 1.4 % (0.0-4.3) 07/10/18 20:10 Baso % (Auto) 0.8 % (0.0-1.8) 07/10/18 20:10 Lymph # 1.8 K/mm3 (1.2-5.4) 07/10/18 20:10 [place] # 1.0 K/mm3 (0.0-0.8) H 07/10/18 20:10 Eos # 0.2 K/mm3 (0.0-0.4) 07/10/18 20:10 Baso # 0.1 K/mm3 (0.0-0.1) 07/10/18 20:10 Seg Neutrophils % 78.4 % (40.0-70.0) H 07/10/18 20:10 Seg Neutrophils # 11.1 K/mm3 (1.8-7.7) H 07/10/18 20:10 Sodium 145 mmol/L (137-145) 07/10/18 20:10 Potassium 3.7 mmol/L (3.6-5.0) 07/10/18 20:10 Chloride 103.5 mmol/L (98-107) 07/10/18 20:10 Carbon Dioxide 30 mmol/L (22-30) 07/10/18 20:10 15 mmol/L 07/10/18 20:10 BUN 14 mg/dL (7-17) 07/10/18 20:10 1.2 mg/dL (0.7-1.2) 07/10/18 20:10 Estimated GFR 56 ml/min 07/10/18 20:10 12 % 07/10/18 20:10 Glucose 192 mg/dL (65-100) H 07/10/18 20:10 POC Glucose 323 (70-105) H 07/11/18 11:58 Lactic Acid 1.10 mmol/L (0.7-2.0) 07/10/18 20:10 Calcium 9.5 mg/dL (8.4-10.2) 07/10/18 20:10 < 0.20 mg/dL (0.1-1.2) 07/10/18 20:10 AST 11 units/L (5-40) 07/10/18 20:10 ALT 13 units/L (7-56) 07/10/18 20:10 91 units/L (35-129) 07/10/18 20:10 68 units/L (30-135) 07/10/18 20:10 CK-MB (CK-2) 1.9 ng/mL (0.0-4.0) 07/10/18 20:10 CK-MB (CK-2) Rel Index 2.7 (0-4) 07/10/18 20:10 < 0.010 ng/mL (0.00-0.029) 07/11/18 05:26 NT-Pro-B Natriuret Pep 330.3 pg/mL (0-900) 07/10/18 20:10 7.1 g/dL (6.3-8.2) 07/10/18 20:10 3.4 g/dL (3.9-5) L 07/10/18 20:10 0.9 % 07/10/18 20:10 Active Medications - Current Medications Current Medications: Generic Name Dose Route Start Last Admin Trade Name Freq PRN Reason Stop Dose Admin Acetaminophen 650 mg 07/10/18 23:25 Tylenol PO Q4H PRN Pain MILD(1-3)/Fever >100.5/DIEGO Albuterol/Ipratropium 1 ampul 07/11/18 02:00 07/11/18 14:55 Duoneb *Not For Prn Use* IH 1 ampul Q6HRT BALJINDER Administration Carvedilol 25 mg 07/11/18 02:00 07/11/18 09:16 Coreg PO 25 mg BID BALJINDER Administration Clonidine HCl 0.2 mg 07/11/18 02:00 07/11/18 09:25 Catapres PO 0.2 mg Q12HR BALJINDER Administration Dextrose 50 ml 07/11/18 00:13 D50w (25gm) Syringe IV PRN PRN Hypoglycemia Enoxaparin Sodium 40 mg 07/11/18 10:00 07/11/18 09:15 Lovenox SUB-Q 40 mg QDAY BALJINDER Administration Furosemide 40 mg 07/10/18 23:45 07/11/18 09:14 Lasix IV 40 mg BID BALJINDER Administration Guaifenesin 10 ml 07/11/18 01:22 Guaifenesin Dm Syrup PO Q4H PRN Cough Hydralazine HCl 10 mg 07/11/18 01:25 Apresoline IV Q4H PRN Blood Pressure Azithromycin 500 mg/ Sodium 250 mls @ 250 mls/hr 07/11/18 10:00 07/11/18 13:58 Chloride IV 250 mls/hr Q24HR BALJINDER Administration Insulin Glargine 15 units 07/11/18 10:00 07/11/18 09:17 Lantus SUB-Q 15 units DAILY BALJINDER Administration Insulin Human Lispro 0 unit 07/11/18 07:30 07/11/18 13:13 Humalog SUB-Q 6 unit ACHS BALJINDER Administration Protocol Methylprednisolone Sodium Succinate 80 mg 07/11/18 00:00 07/11/18 13:00 Solu-Medrol IV 80 mg Q6HR BALJINDER Administration Morphine Sulfate 2 mg 07/10/18 23:25 Morphine IV Q4H PRN Pain, Moderate (4-6) Ondansetron HCl 4 mg 07/10/18 23:25 Zofran IV Q8H PRN Nausea And Vomiting Oxycodone/Acetaminophen 1 tab 07/10/18 23:25 07/11/18 09:15 Percocet 5/325 PO 1 tab Q6H PRN Administration Pain, Moderate (4-6) Potassium Chloride 20 meq 07/11/18 10:00 07/11/18 09:14 K-Dur PO 07/14/18 09:59 20 meq QDAY BALJINDER Administration Sodium Chloride 10 ml 07/11/18 10:00 07/11/18 09:17 Sodium Chloride Flush Syringe 10 Ml IV 10 ml BID BALJINDER Administration Sodium Chloride 10 ml 07/10/18 23:25 Sodium Chloride Flush Syringe 10 Ml IV PRN PRN LINE FLUSH
[2018-07-11] MEDS: SODIUM CHLORIDE FLUSH SYRINGE 10 ML IV PRN ×2 (17:52→23:14)
[2018-07-12] MEDS: DUONEB *Not for PRN Use IH SCH ×4 (03:09→21:05)
[2018-07-12] MEDS: SOLU-Medrol IV SCH ×3 (06:22→17:57)
[2018-07-12 06:26] LABS: Basophils % (Auto) 0.1 % (0.0-1.8); Eosinophils % (Auto) 0.2 % (0.0-4.3); Hematocrit 32.8 % (30.3-42.9); Hemoglobin 10.3 gm/dl (10.1-14.3); Lymphocytes # (Auto) 1.2 K/mm3 (1.2-5.4); Lymphocytes % (Auto) 8.9 % (13.4-35.0); Mean Corpuscular HGB Conc 31 % (30-34); Mean Corpuscular Volume 87 fl (79-97); Monocytes # (Auto) 0.3 K/mm3 (0.0-0.8); Monocytes % (Auto) 2.1 % (0.0-7.3); Platelet Count 323 K/mm3 (140-440); Red Blood Count 3.79 M/mm3 (3.65-5.03); Red Cell Distribution Width 15.8 % (13.2-15.2)
[2018-07-12 06:52] LABS: Calcium 9.3 mg/dL (8.4-10.2)
[2018-07-12] MEDS: HumaLOG SUB-Q SCH ×4 (08:31→21:28)
[2018-07-12] MEDS: COREG PO SCH ×2 (10:42→21:10)
[2018-07-12] MEDS: CATAPRES PO SCH ×2 (10:42→21:11)
[2018-07-12] MEDS: LASIX IV SCH ×2 (10:43→21:10)
[2018-07-12] MEDS: LOVENOX SUB-Q SCH (10:43)
[2018-07-12] MEDS: SODIUM CHLORIDE FLUSH SYRINGE 10 ML IV SCH ×2 (10:44→21:10)
[2018-07-12] MEDS: ZITHROMAX 500 MG in NACL 0.9% 250ML 250 ML IV SCH (10:53)
[2018-07-12] MEDS: LANTUS SUB-Q SCH ×2 (10:53→22:19)
[2018-07-12 11:35] LABS: Bilirubin,Urine NEG (Negative); Blood,Urine NEG (Negative); Color,Urine Straw (Yellow); Urobilinogen,Urine < 2.0 mg/dL (<2.0)
[2018-07-12] MEDS: PERCOCET 5/325 PO PRN ×2 (11:38→21:19)
[2018-07-12 11:43] LABS: WBC,Urine < 1.0 /HPF (0.0-6.0)
--- NOTE | 2018-07-12 18:50 | Progress Note ---
Assessment and Plan Assessment and plan: --Acute on chronic respiratory failure with hypoxia Oxygen titrate O2 sats to more than 90%, nebulizers, IV steroids and IV antibiotics --Acute exacerbation of COPD with acute bronchitis Oxygen nebulizer site is worse inhalation steroids antibiotics Supportive care --Acute on chronic diastolic heart failure with EF of 55-60% Continue anti-failure medications, low-sodium diet water restriction --Atypical chest pain, rule out ACS Serial cardiac enzymes negative, symptoms improved --Obstructive sleep apnea ;Patient is noncompliant with her CPAP at home Counseled the importance of adhering to the treatment plan --DM2 with hyperglycemia; uncontrolled Partly secondary to high-dose steroids Increase Lantus insulin and closely monitor --HTN; well controlled, continue current antihypertensives When necessary medications --Morbid obesity with BMI of 56.5 Weight reduction and Lifestyle modification when medically stable No benefit by outpatient bariatric surgical evaluation for weight reduction program Upon discharge --DVT prophylaxis with Lovenox Plan of care is reviewed with the patient and her nurse Possible discharge in 1-2 days if stable Ambulate as tolerated History Interval history: Patient seen and examined medical records reviewed No new events reported by the nursing staff Patient still has shortness of breath Vital signs reviewed Hospitalist Physical - Constitutional Vitals: Temp Pulse Resp BP Pulse Ox 97.7 F 84 18 148/92 96 07/12/18 07:44 07/12/18 14:55 07/12/18 14:55 07/12/18 10:42 07/12/18 12:00 General appearance: Present: no acute distress, well-nourished, obese (morbidly obese) - EENT Eyes: Present: PERRL, EOM intact - Neck Neck: Present: supple, normal ROM - Respiratory Respiratory effort: normal Respiratory: bilateral: diminished, rales, negative: rhonchi, wheezing - Cardiovascular Rhythm: regular Heart Sounds: Present: S1 & S2 - Extremities Extremities: no ischemia, No edema - Abdominal General gastrointestinal: soft, non-tender, non-distended, normal bowel sounds - Integumentary Integumentary: Present: clear, warm - Psychiatric Psychiatric: appropriate mood/affect, cooperative - Neurologic Neurologic: CNII-XII intact, moves all extremities Results - Labs CBC & Chem 7: 07/12/18 04:46 07/12/18 21:40 Labs: Laboratory Last Values WBC 12.9 K/mm3 (4.5-11.0) H 07/12/18 04:46 RBC 3.79 M/mm3 (3.65-5.03) 07/12/18 04:46 Hgb 10.3 gm/dl (10.1-14.3) 07/12/18 04:46 Hct 32.8 % (30.3-42.9) 07/12/18 04:46 MCV 87 fl (79-97) 07/12/18 04:46 MCH 27 pg (28-32) L 07/12/18 04:46 MCHC 31 % (30-34) 07/12/18 04:46 RDW 15.8 % (13.2-15.2) H 07/12/18 04:46 Plt Count 323 K/mm3 (140-440) 07/12/18 04:46 Lymph % (Auto) 8.9 % (13.4-35.0) L 07/12/18 04:46 [place] % (Auto) 2.1 % (0.0-7.3) 07/12/18 04:46 Eos % (Auto) 0.2 % (0.0-4.3) 07/12/18 04:46 Baso % (Auto) 0.1 % (0.0-1.8) 07/12/18 04:46 Lymph # 1.2 K/mm3 (1.2-5.4) 07/12/18 04:46 [place] # 0.3 K/mm3 (0.0-0.8) 07/12/18 04:46 Eos # 0.0 K/mm3 (0.0-0.4) 07/12/18 04:46 Baso # 0.0 K/mm3 (0.0-0.1) 07/12/18 04:46 Seg Neutrophils % 88.7 % (40.0-70.0) H 07/12/18 04:46 Seg Neutrophils # 11.4 K/mm3 (1.8-7.7) H 07/12/18 04:46 Sodium 136 mmol/L (137-145) L D 07/12/18 04:46 Potassium 5.0 mmol/L (3.6-5.0) D 07/12/18 04:46 Chloride 94.7 mmol/L (98-107) L 07/12/18 04:46 Carbon Dioxide 25 mmol/L (22-30) 07/12/18 04:46 21 mmol/L 07/12/18 04:46 BUN 36 mg/dL (7-17) H 07/12/18 04:46 1.7 mg/dL (0.7-1.2) H 07/12/18 04:46 Estimated GFR 37 ml/min 07/12/18 04:46 21 % 07/12/18 04:46 Glucose 418 mg/dL (65-100) H 07/12/18 04:46 POC Glucose 463 (70-105) H 07/12/18 16:13 Lactic Acid 1.10 mmol/L (0.7-2.0) 07/10/18 20:10 Calcium 9.3 mg/dL (8.4-10.2) 07/12/18 04:46 Magnesium 1.90 mg/dL (1.7-2.3) 07/12/18 04:46 < 0.20 mg/dL (0.1-1.2) 07/10/18 20:10 AST 11 units/L (5-40) 07/10/18 20:10 ALT 13 units/L (7-56) 07/10/18 20:10 91 units/L (35-129) 07/10/18 20:10 68 units/L (30-135) 07/10/18 20:10 CK-MB (CK-2) 1.9 ng/mL (0.0-4.0) 07/10/18 20:10 CK-MB (CK-2) Rel Index 2.7 (0-4) 07/10/18 20:10 < 0.010 ng/mL (0.00-0.029) 07/11/18 05:26 NT-Pro-B Natriuret Pep 330.3 pg/mL (0-900) 07/10/18 20:10 7.1 g/dL (6.3-8.2) 07/10/18 20:10 3.4 g/dL (3.9-5) L 07/10/18 20:10 0.9 % 07/10/18 20:10 Straw (Yellow) 07/11/18 01:29 Clear (Clear) 07/11/18 01:29 5.0 (5.0-7.0) 07/11/18 01:29 Ur Specific [place] 1.013 (1.003-1.030) 07/11/18 01:29 100 mg/dl mg/dL (Negative) 07/11/18 01:29 >=500 mg/dL (Negative) 07/11/18 01:29 Neg mg/dL (Negative) 07/11/18 01:29 Neg (Negative) 07/11/18 01:29 Neg (Negative) 07/11/18 01:29 Neg (Negative) 07/11/18 01:29 < 2.0 mg/dL (<2.0) 07/11/18 01:29 Ur Leukocyte Esterase Neg (Negative) 07/11/18 01:29 < 1.0 /HPF (0.0-6.0) 07/11/18 01:29 1.0 /HPF (0.0-6.0) 07/11/18 01:29 U Epithel Cells (Auto) < 1.0 /HPF (0-13.0) 07/11/18 01:29 Active Medications - Current Medications Current Medications: Generic Name Dose Route Start Last Admin Trade Name Freq PRN Reason Stop Dose Admin Acetaminophen 650 mg 07/10/18 23:25 Tylenol PO Q4H PRN Pain MILD(1-3)/Fever >100.5/DIEGO Albuterol/Ipratropium 1 ampul 07/11/18 02:00 07/12/18 14:50 Duoneb *Not For Prn Use* IH 1 ampul Q6HRT BALJINDER Administration Carvedilol 25 mg 07/11/18 02:00 07/12/18 10:42 Coreg PO 25 mg BID BALJINDER Administration Clonidine HCl 0.2 mg 07/11/18 02:00 07/12/18 10:42 Catapres PO 0.2 mg Q12HR BALJINDER Administration Dextrose 50 ml 07/11/18 00:13 D50w (25gm) Syringe IV PRN PRN Hypoglycemia Enoxaparin Sodium 40 mg 07/11/18 10:00 07/12/18 10:43 Lovenox SUB-Q 40 mg QDAY BALJINDER Administration Furosemide 40 mg 07/10/18 23:45 07/12/18 10:43 Lasix IV 40 mg BID BALJINDER Administration Guaifenesin 10 ml 07/11/18 01:22 Guaifenesin Dm Syrup PO Q4H PRN Cough Hydralazine HCl 10 mg 07/11/18 01:25 Apresoline IV Q4H PRN Blood Pressure Azithromycin 500 mg/ Sodium 250 mls @ 250 mls/hr 07/11/18 10:00 07/12/18 10:53 Chloride IV 250 mls/hr Q24HR BALJINDER Administration Insulin Glargine 15 units 07/11/18 10:00 07/12/18 10:53 Lantus SUB-Q 15 units DAILY BALJINDER Administration Insulin Human Lispro 0 unit 07/11/18 07:30 07/12/18 17:57 Humalog SUB-Q 8 unit ACHS BALJINDER Administration Protocol Methylprednisolone Sodium Succinate 80 mg 07/11/18 00:00 07/12/18 17:57 Solu-Medrol IV 80 mg Q6HR BALJINDER Administration Morphine Sulfate 2 mg 07/10/18 23:25 Morphine IV Q4H PRN Pain, Moderate (4-6) Ondansetron HCl 4 mg 07/10/18 23:25 Zofran IV Q8H PRN Nausea And Vomiting Oxycodone/Acetaminophen 1 tab 07/10/18 23:25 07/12/18 11:38 Percocet 5/325 PO 1 tab Q6H PRN Administration Pain, Moderate (4-6) Potassium Chloride 20 meq 07/11/18 10:00 07/11/18 09:14 K-Dur PO 07/14/18 09:59 20 meq QDAY BALJINDER Administration Sodium Chloride 10 ml 07/11/18 10:00 07/12/18 10:44 Sodium Chloride Flush Syringe 10 Ml IV 10 ml BID BALJINDER Administration Sodium Chloride 10 ml 07/10/18 23:25 07/11/18 23:14 Sodium Chloride Flush Syringe 10 Ml IV 10 ml PRN PRN Administration LINE FLUSH
[2018-07-12] MEDS ORDERED: SOLU-Medrol IV SCH (18:54)
[2018-07-12] MEDS ORDERED: HumuLIN R SUB-Q ONE (22:28)
[2018-07-13] MEDS: DUONEB *Not for PRN Use IH SCH ×4 (02:22→20:50)
[2018-07-13] MEDS: HumaLOG SUB-Q SCH ×4 (08:03→22:22)
[2018-07-13] MEDS: CATAPRES PO SCH ×2 (11:32→21:59)
[2018-07-13] MEDS: COREG PO SCH ×2 (11:32→21:59)
[2018-07-13] MEDS: LOVENOX SUB-Q SCH (11:32)
[2018-07-13] MEDS: LASIX IV SCH ×2 (11:32→21:52)
[2018-07-13] MEDS: ZITHROMAX 500 MG in NACL 0.9% 250ML 250 ML IV SCH (11:33)
[2018-07-13] MEDS: LANTUS SUB-Q SCH ×2 (11:33→21:53)
[2018-07-13] MEDS: SODIUM CHLORIDE FLUSH SYRINGE 10 ML IV SCH ×2 (11:34→21:52)
--- NOTE | 2018-07-13 13:20 | Progress Note ---
Assessment and Plan Assessment and plan: --Acute on chronic respiratory failure with hypoxia Oxygen titrate O2 sats to more than 90%, nebulizers, IV steroids and IV antibiotics --Acute exacerbation of COPD with acute bronchitis Oxygen nebulizer site is worse inhalation steroids antibiotics Supportive care --Acute on chronic diastolic heart failure with EF of 55-60% Continue anti-failure medications, low-sodium diet water restriction --Atypical chest pain, rule out ACS Serial cardiac enzymes negative, symptoms improved --Obstructive sleep apnea ;Patient is noncompliant with her CPAP at home Counseled the importance of adhering to the treatment plan --DM2 with hyperglycemia; uncontrolled Partly secondary to high-dose steroids, taper the dose of steroid Increase Lantus insulin 25 units subcutaneous twice a day and closely monitor --HTN; well controlled, continue current antihypertensives When necessary medications --Morbid obesity with BMI of 56.5 Weight reduction and Lifestyle modification when medically stable No benefit by outpatient bariatric surgical evaluation for weight reduction program Upon discharge --DVT prophylaxis with Lovenox Plan of care is reviewed with the patient and her nurse Possible discharge in 1-2 days if stable Ambulate as tolerated Stable to be transferred out of telemetry to medical floor History Interval history: Patient seen and examined medical records reviewed No new events reported by the nursing staff Patient feels slightly better On 2 L of oxygen saturating well Vital signs noted Hospitalist Physical - Constitutional Vitals: Temp Pulse Resp BP Pulse Ox 98.0 F 70 18 166/93 100 07/13/18 07:53 07/13/18 08:25 07/13/18 08:25 07/13/18 07:53 07/13/18 08:21 General appearance: Present: no acute distress, well-nourished, obese (morbidly obese) - EENT Eyes: Present: PERRL, EOM intact - Neck Neck: Present: supple, normal ROM - Respiratory Respiratory effort: normal Respiratory: bilateral: diminished, rhonchi, wheezing, negative: rales - Cardiovascular Rhythm: regular Heart Sounds: Present: S1 & S2 - Extremities Extremities: no ischemia, No edema - Abdominal General gastrointestinal: soft, non-tender, non-distended, normal bowel sounds - Integumentary Integumentary: Present: clear, warm - Psychiatric Psychiatric: appropriate mood/affect, cooperative - Neurologic Neurologic: CNII-XII intact, moves all extremities Results - Labs CBC & Chem 7: 07/12/18 04:46 07/12/18 21:40 Labs: Laboratory Last Values WBC 12.9 K/mm3 (4.5-11.0) H 07/12/18 04:46 RBC 3.79 M/mm3 (3.65-5.03) 07/12/18 04:46 Hgb 10.3 gm/dl (10.1-14.3) 07/12/18 04:46 Hct 32.8 % (30.3-42.9) 07/12/18 04:46 MCV 87 fl (79-97) 07/12/18 04:46 MCH 27 pg (28-32) L 07/12/18 04:46 MCHC 31 % (30-34) 07/12/18 04:46 RDW 15.8 % (13.2-15.2) H 07/12/18 04:46 Plt Count 323 K/mm3 (140-440) 07/12/18 04:46 Lymph % (Auto) 8.9 % (13.4-35.0) L 07/12/18 04:46 [place] % (Auto) 2.1 % (0.0-7.3) 07/12/18 04:46 Eos % (Auto) 0.2 % (0.0-4.3) 07/12/18 04:46 Baso % (Auto) 0.1 % (0.0-1.8) 07/12/18 04:46 Lymph # 1.2 K/mm3 (1.2-5.4) 07/12/18 04:46 [place] # 0.3 K/mm3 (0.0-0.8) 07/12/18 04:46 Eos # 0.0 K/mm3 (0.0-0.4) 07/12/18 04:46 Baso # 0.0 K/mm3 (0.0-0.1) 07/12/18 04:46 Seg Neutrophils % 88.7 % (40.0-70.0) H 07/12/18 04:46 Seg Neutrophils # 11.4 K/mm3 (1.8-7.7) H 07/12/18 04:46 Sodium 136 mmol/L (137-145) L D 07/12/18 04:46 Potassium 5.0 mmol/L (3.6-5.0) D 07/12/18 04:46 Chloride 94.7 mmol/L (98-107) L 07/12/18 04:46 Carbon Dioxide 25 mmol/L (22-30) 07/12/18 04:46 21 mmol/L 07/12/18 04:46 BUN 36 mg/dL (7-17) H 07/12/18 04:46 1.7 mg/dL (0.7-1.2) H 07/12/18 04:46 Estimated GFR 37 ml/min 07/12/18 04:46 21 % 07/12/18 04:46 Glucose 624 mg/dL (65-100) H* 07/12/18 21:40 POC Glucose 365 (70-105) H 07/13/18 11:37 Lactic Acid 1.10 mmol/L (0.7-2.0) 07/10/18 20:10 Calcium 9.3 mg/dL (8.4-10.2) 07/12/18 04:46 Magnesium 1.90 mg/dL (1.7-2.3) 07/12/18 04:46 < 0.20 mg/dL (0.1-1.2) 07/10/18 20:10 AST 11 units/L (5-40) 07/10/18 20:10 ALT 13 units/L (7-56) 07/10/18 20:10 91 units/L (35-129) 07/10/18 20:10 68 units/L (30-135) 07/10/18 20:10 CK-MB (CK-2) 1.9 ng/mL (0.0-4.0) 07/10/18 20:10 CK-MB (CK-2) Rel Index 2.7 (0-4) 07/10/18 20:10 < 0.010 ng/mL (0.00-0.029) 07/11/18 05:26 NT-Pro-B Natriuret Pep 330.3 pg/mL (0-900) 07/10/18 20:10 7.1 g/dL (6.3-8.2) 07/10/18 20:10 3.4 g/dL (3.9-5) L 07/10/18 20:10 0.9 % 07/10/18 20:10 Straw (Yellow) 07/11/18 01:29 Clear (Clear) 07/11/18 01:29 5.0 (5.0-7.0) 07/11/18 01:29 Ur Specific [place] 1.013 (1.003-1.030) 07/11/18 01:29 100 mg/dl mg/dL (Negative) 07/11/18 01:29 >=500 mg/dL (Negative) 07/11/18 01:29 Neg mg/dL (Negative) 07/11/18 01:29 Neg (Negative) 07/11/18 01:29 Neg (Negative) 07/11/18 01:29 Neg (Negative) 07/11/18 01:29 < 2.0 mg/dL (<2.0) 07/11/18 01:29 Ur Leukocyte Esterase Neg (Negative) 07/11/18 01:29 < 1.0 /HPF (0.0-6.0) 07/11/18 01:29 1.0 /HPF (0.0-6.0) 07/11/18 01:29 U Epithel Cells (Auto) < 1.0 /HPF (0-13.0) 07/11/18 01:29 Active Medications - Current Medications Current Medications: Generic Name Dose Route Start Last Admin Trade Name Freq PRN Reason Stop Dose Admin Acetaminophen 650 mg 07/10/18 23:25 Tylenol PO Q4H PRN Pain MILD(1-3)/Fever >100.5/[place]IEGO Albuterol/Ipratropium 1 ampul 07/11/18 02:00 07/13/18 08:15 Duoneb *Not For Prn Use* IH 1 ampul Q6HRT BALJINDER Administration Carvedilol 25 mg 07/11/18 02:00 07/13/18 11:32 Coreg PO 25 mg BID BALJINDER Administration Clonidine HCl 0.2 mg 07/11/18 02:00 07/13/18 11:32 Catapres PO 0.2 mg Q12HR BALJINDER Administration Dextrose 50 ml 07/11/18 00:13 D50w (25gm) Syringe IV PRN PRN Hypoglycemia Enoxaparin Sodium 40 mg 07/11/18 10:00 07/13/18 11:32 Lovenox SUB-Q 40 mg QDAY BALJINDER Administration Furosemide 40 mg 07/10/18 23:45 07/13/18 11:32 Lasix IV 40 mg BID BALJINDER Administration Guaifenesin 10 ml 07/11/18 01:22 Guaifenesin Dm Syrup PO Q4H PRN Cough Hydralazine HCl 10 mg 07/11/18 01:25 Apresoline IV Q4H PRN Blood Pressure Azithromycin 500 mg/ Sodium 250 mls @ 250 mls/hr 07/11/18 10:00 07/13/18 11:33 Chloride IV 250 mls/hr Q24HR BALJINDER Administration Insulin Glargine 20 units 07/12/18 22:00 07/13/18 11:33 Lantus SUB-Q 20 units BID BALJINDER Administration Insulin Human Lispro 0 unit 07/11/18 07:30 07/13/18 12:04 Humalog SUB-Q 10 unit ACHS BALJINDER Administration Protocol Methylprednisolone Sodium Succinate 60 mg 07/13/18 19:00 Solu-Medrol IV Q6HR [facility] Morphine Sulfate 2 mg 07/10/18 23:25 Morphine IV Q4H PRN Pain, Moderate (4-6) Ondansetron HCl 4 mg 07/10/18 23:25 Zofran IV Q8H PRN Nausea And Vomiting Oxycodone/Acetaminophen 1 tab 07/10/18 23:25 07/12/18 21:19 Percocet 5/325 PO 1 tab Q6H PRN Administration Pain, Moderate (4-6) Sodium Chloride 10 ml 07/11/18 10:00 07/13/18 11:34 Sodium Chloride Flush Syringe 10 Ml IV 10 ml BID BALJINDER Administration Sodium Chloride 10 ml 07/10/18 23:25 07/11/18 23:14 Sodium Chloride Flush Syringe 10 Ml IV 10 ml PRN PRN Administration LINE FLUSH
[2018-07-13] MEDS: PERCOCET 5/325 PO PRN (17:53)
[2018-07-13] MEDS: SOLU-Medrol IV SCH (18:31)
[2018-07-14] MEDS: SOLU-Medrol IV SCH ×4 (00:05→20:24)
[2018-07-14] MEDS: DUONEB *Not for PRN Use IH SCH ×4 (02:26→20:10)
[2018-07-14] MEDS: PERCOCET 5/325 PO PRN ×2 (05:28→20:24)
[2018-07-14] MEDS: HumaLOG SUB-Q SCH ×4 (08:46→22:47)
[2018-07-14] MEDS: CATAPRES PO SCH ×2 (10:10→22:12)
[2018-07-14] MEDS: LANTUS SUB-Q SCH ×3 (10:10→22:01)
[2018-07-14] MEDS: COREG PO SCH ×2 (10:10→22:12)
[2018-07-14] MEDS: LOVENOX SUB-Q SCH (10:11)
[2018-07-14] MEDS: LASIX IV SCH ×2 (10:11→22:00)
[2018-07-14] MEDS: ZITHROMAX 500 MG in NACL 0.9% 250ML 250 ML IV SCH (11:46)
[2018-07-14] MEDS: SODIUM CHLORIDE FLUSH SYRINGE 10 ML IV SCH ×2 (11:46→22:17)
[2018-07-15] MEDS: DUONEB *Not for PRN Use IH SCH ×4 (02:32→19:26)
[2018-07-15] MEDS ORDERED: HumuLIN R SUB-Q ONE (02:38)
[2018-07-15] MEDS ORDERED: HumaLOG SUB-Q ONE (02:46)
[2018-07-15] MEDS: SOLU-Medrol IV SCH ×3 (04:33→20:48)
[2018-07-15] MEDS: PERCOCET 5/325 PO PRN ×3 (08:31→23:48)
[2018-07-15] MEDS: HumaLOG SUB-Q SCH ×4 (08:59→22:25)
[2018-07-15] MEDS: CATAPRES PO SCH ×2 (10:32→22:30)
[2018-07-15] MEDS: LOVENOX SUB-Q SCH (10:32)
[2018-07-15] MEDS: COREG PO SCH ×2 (10:33→22:31)
[2018-07-15] MEDS: LANTUS SUB-Q SCH ×2 (10:34→22:27)
[2018-07-15] MEDS: SODIUM CHLORIDE FLUSH SYRINGE 10 ML IV SCH ×2 (10:35→22:36)
[2018-07-15] MEDS: ZITHROMAX 500 MG in NACL 0.9% 250ML 250 ML IV SCH (10:35)
[2018-07-15] MEDS: LASIX IV SCH ×2 (10:36→22:31)
--- NOTE | 2018-07-15 15:28 | Progress Note ---
Assessment and Plan Assessment and plan: --Acute exacerbation of COPD with acute bronchitis; mild improvement of symptoms. Oxygen nebulizer site is worse inhalation tapering steroids, antibiotics Supportive care --Acute on chronic respiratory failure with hypoxia Oxygen titrate O2 sats to more than 90%, nebulizers, and he and he --Acute on chronic diastolic heart failure with EF of 55-60% Continue anti-failure medications, low-sodium diet water restriction --Atypical chest pain, rule out ACS Serial cardiac enzymes negative, symptoms improved --Obstructive sleep apnea ;Patient is noncompliant with her CPAP at home Counseled the importance of adhering to the treatment plan --DM2 with hyperglycemia; uncontrolled Partly secondary to high-dose steroids, taper the dose of steroid Increase Lantus insulin 25 units subcutaneous twice a day and closely monitor --HTN; well controlled, continue current antihypertensives When necessary medications --Morbid obesity with BMI of 56.5 Weight reduction and Lifestyle modification when medically stable No benefit by outpatient bariatric surgical evaluation for weight reduction program Upon discharge --DVT prophylaxis with Lovenox Plan of care is reviewed with the patient and her nurse Possible discharge in 1-2 days if stable Ambulate as tolerated Stable to be transferred out of telemetry to medical floor History Interval history: Patient seen and examined medical records reviewed Patient feels slightly better still has shortness of breath Mild distress and has a mild cough productive Alert awake oriented 3 Vital signs reviewed. Hospitalist Physical - Constitutional Vitals: Temp Pulse Resp BP Pulse Ox 98.5 F 74 19 138/73 100 07/15/18 05:18 07/15/18 13:56 07/15/18 13:56 07/15/18 10:33 07/15/18 08:04 General appearance: Present: no acute distress, well-nourished, obese (morbidly obese) - EENT Eyes: Present: PERRL, EOM intact - Neck Neck: Present: supple, normal ROM - Respiratory Respiratory effort: normal Respiratory: bilateral: diminished, negative: rales, rhonchi, wheezing - Cardiovascular Rhythm: regular Heart Sounds: Present: S1 & S2 - Extremities Extremities: no ischemia, No edema - Abdominal General gastrointestinal: soft, non-tender, non-distended, normal bowel sounds - Integumentary Integumentary: Present: clear, warm - Psychiatric Psychiatric: appropriate mood/affect, cooperative - Neurologic Neurologic: CNII-XII intact, moves all extremities Results - Labs CBC & Chem 7: 07/12/18 04:46 07/15/18 01:21 Labs: Laboratory Last Values WBC 12.9 K/mm3 (4.5-11.0) H 07/12/18 04:46 RBC 3.79 M/mm3 (3.65-5.03) 07/12/18 04:46 Hgb 10.3 gm/dl (10.1-14.3) 07/12/18 04:46 Hct 32.8 % (30.3-42.9) 07/12/18 04:46 MCV 87 fl (79-97) 07/12/18 04:46 MCH 27 pg (28-32) L 07/12/18 04:46 MCHC 31 % (30-34) 07/12/18 04:46 RDW 15.8 % (13.2-15.2) H 07/12/18 04:46 Plt Count 323 K/mm3 (140-440) 07/12/18 04:46 Lymph % (Auto) 8.9 % (13.4-35.0) L 07/12/18 04:46 [place] % (Auto) 2.1 % (0.0-7.3) 07/12/18 04:46 Eos % (Auto) 0.2 % (0.0-4.3) 07/12/18 04:46 Baso % (Auto) 0.1 % (0.0-1.8) 07/12/18 04:46 Lymph # 1.2 K/mm3 (1.2-5.4) 07/12/18 04:46 [place] # 0.3 K/mm3 (0.0-0.8) 07/12/18 04:46 Eos # 0.0 K/mm3 (0.0-0.4) 07/12/18 04:46 Baso # 0.0 K/mm3 (0.0-0.1) 07/12/18 04:46 Seg Neutrophils % 88.7 % (40.0-70.0) H 07/12/18 04:46 Seg Neutrophils # 11.4 K/mm3 (1.8-7.7) H 07/12/18 04:46 Sodium 136 mmol/L (137-145) L D 07/12/18 04:46 Potassium 5.0 mmol/L (3.6-5.0) D 07/12/18 04:46 Chloride 94.7 mmol/L (98-107) L 07/12/18 04:46 Carbon Dioxide 25 mmol/L (22-30) 07/12/18 04:46 21 mmol/L 07/12/18 04:46 BUN 36 mg/dL (7-17) H 07/12/18 04:46 1.7 mg/dL (0.7-1.2) H 07/12/18 04:46 Estimated GFR 37 ml/min 07/12/18 04:46 21 % 07/12/18 04:46 Glucose 481 mg/dL (65-100) H 07/15/18 01:21 POC Glucose 314 (70-105) H 07/15/18 11:42 Lactic Acid 1.10 mmol/L (0.7-2.0) 07/10/18 20:10 Calcium 9.3 mg/dL (8.4-10.2) 07/12/18 04:46 Magnesium 1.90 mg/dL (1.7-2.3) 07/12/18 04:46 < 0.20 mg/dL (0.1-1.2) 07/10/18 20:10 AST 11 units/L (5-40) 07/10/18 20:10 ALT 13 units/L (7-56) 07/10/18 20:10 91 units/L (35-129) 07/10/18 20:10 68 units/L (30-135) 07/10/18 20:10 CK-MB (CK-2) 1.9 ng/mL (0.0-4.0) 07/10/18 20:10 CK-MB (CK-2) Rel Index 2.7 (0-4) 07/10/18 20:10 < 0.010 ng/mL (0.00-0.029) 07/11/18 05:26 NT-Pro-B Natriuret Pep 330.3 pg/mL (0-900) 07/10/18 20:10 7.1 g/dL (6.3-8.2) 07/10/18 20:10 3.4 g/dL (3.9-5) L 07/10/18 20:10 0.9 % 07/10/18 20:10 Straw (Yellow) 07/11/18 01:29 Clear (Clear) 07/11/18 01:29 5.0 (5.0-7.0) 07/11/18 01:29 Ur Specific [place] 1.013 (1.003-1.030) 07/11/18 01:29 100 mg/dl mg/dL (Negative) 07/11/18 01:29 >=500 mg/dL (Negative) 07/11/18 01:29 Neg mg/dL (Negative) 07/11/18 01:29 Neg (Negative) 07/11/18 01:29 Neg (Negative) 07/11/18 01:29 Neg (Negative) 07/11/18 01:29 < 2.0 mg/dL (<2.0) 07/11/18 01:29 Ur Leukocyte Esterase Neg (Negative) 07/11/18 01:29 < 1.0 /HPF (0.0-6.0) 07/11/18 01:29 1.0 /HPF (0.0-6.0) 07/11/18 01:29 U Epithel Cells (Auto) < 1.0 /HPF (0-13.0) 07/11/18 01:29 Active Medications - Current Medications Current Medications: Generic Name Dose Route Start Last Admin Trade Name Freq PRN Reason Stop Dose Admin Acetaminophen 650 mg 07/10/18 23:25 Tylenol PO Q4H PRN Pain MILD(1-3)/Fever >100.5/[place] Albuterol/Ipratropium 1 ampul 07/11/18 02:00 07/15/18 13:55 Duoneb *Not For Prn Use* IH 1 ampul Q6HRT BALJINDER Administration Carvedilol 25 mg 07/11/18 02:00 07/15/18 10:33 Coreg PO 25 mg BID BALJINDER Administration Clonidine HCl 0.2 mg 07/11/18 02:00 07/15/18 10:32 Catapres PO 0.2 mg Q12HR BALJINDER Administration Dextrose 50 ml 07/11/18 00:13 D50w (25gm) Syringe IV PRN PRN Hypoglycemia Enoxaparin Sodium 40 mg 07/11/18 10:00 07/15/18 10:32 Lovenox SUB-Q 40 mg QDAY BALJINDER Administration Furosemide 40 mg 07/10/18 23:45 07/15/18 10:36 Lasix IV 40 mg BID BALJINDER Administration Guaifenesin 10 ml 07/11/18 01:22 07/15/18 08:59 Guaifenesin Dm Syrup PO 10 ml Q4H PRN Administration Cough Hydralazine HCl 10 mg 07/11/18 01:25 Apresoline IV Q4H PRN Blood Pressure Azithromycin 500 mg/ Sodium 250 mls @ 250 mls/hr 07/11/18 10:00 07/15/18 10:35 Chloride IV 250 mls/hr Q24HR BALJINDER Administration Insulin Glargine 28 units 07/14/18 14:00 07/15/18 10:34 Lantus SUB-Q 28 units BID BALJINDER Administration Insulin Human Lispro 0 unit 07/11/18 07:30 07/15/18 13:42 Humalog SUB-Q 8 unit ACHS BALJINDER Administration Protocol Methylprednisolone Sodium Succinate 40 mg 07/14/18 20:00 07/15/18 13:39 Solu-Medrol IV 40 mg Q8H BALJINDER Administration Morphine Sulfate 2 mg 07/10/18 23:25 Morphine IV Q4H PRN Pain, Moderate (4-6) Ondansetron HCl 4 mg 07/10/18 23:25 Zofran IV Q8H PRN Nausea And Vomiting Oxycodone/Acetaminophen 1 tab 07/10/18 23:25 07/15/18 08:31 Percocet 5/325 PO 1 tab Q6H PRN Administration Pain, Moderate (4-6) Sodium Chloride 10 ml 07/11/18 10:00 07/15/18 10:35 Sodium Chloride Flush Syringe 10 Ml IV 10 ml BID BALJINDER Administration Sodium Chloride 10 ml 07/10/18 23:25 07/11/18 23:14 Sodium Chloride Flush Syringe 10 Ml IV 10 ml PRN PRN Administration LINE FLUSH
--- NOTE | 2018-07-15 15:34 | Progress Note ---
Assessment and Plan Assessment and plan: 58-year-old morbidly obese female patient with a significant history of COPD home oxygen dependent was admitted through emergency room with worsening shortness of breath acute on chronic hypoxic respiratory failure secondary to COPD exacerbation, --Acute on chronic respiratory failure with hypoxia; symptoms significantly improved Oxygen titrate O2 sats to more than 90%, nebulizers, IV steroids and IV antibiotics --Acute exacerbation of COPD with acute bronchitis Oxygen nebulizer site is worse inhalation steroids antibiotics Supportive care --Acute on chronic diastolic heart failure with EF of 55-60% Continue anti-failure medications, low-sodium diet water restriction --Atypical chest pain, rule out ACS Serial cardiac enzymes negative, symptoms improved --Obstructive sleep apnea ;Patient is noncompliant with her CPAP at home Counseled the importance of adhering to the treatment plan --DM2 with hyperglycemia; uncontrolled Partly secondary to high-dose steroids, taper the dose of steroid Increase Lantus insulin 25 units subcutaneous twice a day and closely monitor --HTN; well controlled, continue current antihypertensives When necessary medications --Morbid obesity with BMI of 56.5 Weight reduction and Lifestyle modification when medically stable May benefit by outpatient bariatric surgical evaluation for weight reduction program Upon discharge --DVT prophylaxis with Lovenox Disposition; possible discharge in 1-2 days if stable History Interval history: Patient seen and examined medical records reviewed Slightly better still has significant shortness of breath and his Patient alert awake and oriented 3 Mild distress Vital signs noted Hospitalist Physical - Constitutional Vitals: Temp Pulse Resp BP Pulse Ox 98.5 F 74 19 138/73 100 07/15/18 05:18 07/15/18 13:56 07/15/18 13:56 07/15/18 10:33 07/15/18 08:04 General appearance: Present: no acute distress, well-nourished, obese (morbidly obese) - EENT Eyes: Present: PERRL, EOM intact - Neck Neck: Present: supple, normal ROM - Respiratory Respiratory effort: normal Respiratory: bilateral: diminished, wheezing, negative: rales, rhonchi - Cardiovascular Rhythm: regular Heart Sounds: Present: S1 & S2 - Extremities Extremities: no ischemia, No edema - Abdominal General gastrointestinal: soft, non-tender, non-distended, normal bowel sounds - Integumentary Integumentary: Present: clear, warm - Psychiatric Psychiatric: appropriate mood/affect, cooperative - Neurologic Neurologic: CNII-XII intact, moves all extremities Results - Labs CBC & Chem 7: 07/12/18 04:46 07/15/18 19:30 Labs: Laboratory Last Values WBC 12.9 K/mm3 (4.5-11.0) H 07/12/18 04:46 RBC 3.79 M/mm3 (3.65-5.03) 07/12/18 04:46 Hgb 10.3 gm/dl (10.1-14.3) 07/12/18 04:46 Hct 32.8 % (30.3-42.9) 07/12/18 04:46 MCV 87 fl (79-97) 07/12/18 04:46 MCH 27 pg (28-32) L 07/12/18 04:46 MCHC 31 % (30-34) 07/12/18 04:46 RDW 15.8 % (13.2-15.2) H 07/12/18 04:46 Plt Count 323 K/mm3 (140-440) 07/12/18 04:46 Lymph % (Auto) 8.9 % (13.4-35.0) L 07/12/18 04:46 [place] % (Auto) 2.1 % (0.0-7.3) 07/12/18 04:46 Eos % (Auto) 0.2 % (0.0-4.3) 07/12/18 04:46 Baso % (Auto) 0.1 % (0.0-1.8) 07/12/18 04:46 Lymph # 1.2 K/mm3 (1.2-5.4) 07/12/18 04:46 [place] # 0.3 K/mm3 (0.0-0.8) 07/12/18 04:46 Eos # 0.0 K/mm3 (0.0-0.4) 07/12/18 04:46 Baso # 0.0 K/mm3 (0.0-0.1) 07/12/18 04:46 Seg Neutrophils % 88.7 % (40.0-70.0) H 07/12/18 04:46 Seg Neutrophils # 11.4 K/mm3 (1.8-7.7) H 07/12/18 04:46 Sodium 136 mmol/L (137-145) L D 07/12/18 04:46 Potassium 5.0 mmol/L (3.6-5.0) D 07/12/18 04:46 Chloride 94.7 mmol/L (98-107) L 07/12/18 04:46 Carbon Dioxide 25 mmol/L (22-30) 07/12/18 04:46 21 mmol/L 07/12/18 04:46 BUN 36 mg/dL (7-17) H 07/12/18 04:46 1.7 mg/dL (0.7-1.2) H 07/12/18 04:46 Estimated GFR 37 ml/min 07/12/18 04:46 21 % 07/12/18 04:46 Glucose 481 mg/dL (65-100) H 07/15/18 01:21 POC Glucose 314 (70-105) H 07/15/18 11:42 Lactic Acid 1.10 mmol/L (0.7-2.0) 07/10/18 20:10 Calcium 9.3 mg/dL (8.4-10.2) 07/12/18 04:46 Magnesium 1.90 mg/dL (1.7-2.3) 07/12/18 04:46 < 0.20 mg/dL (0.1-1.2) 07/10/18 20:10 AST 11 units/L (5-40) 07/10/18 20:10 ALT 13 units/L (7-56) 07/10/18 20:10 91 units/L (35-129) 07/10/18 20:10 68 units/L (30-135) 07/10/18 20:10 CK-MB (CK-2) 1.9 ng/mL (0.0-4.0) 07/10/18 20:10 CK-MB (CK-2) Rel Index 2.7 (0-4) 07/10/18 20:10 < 0.010 ng/mL (0.00-0.029) 07/11/18 05:26 NT-Pro-B Natriuret Pep 330.3 pg/mL (0-900) 07/10/18 20:10 7.1 g/dL (6.3-8.2) 07/10/18 20:10 3.4 g/dL (3.9-5) L 07/10/18 20:10 0.9 % 07/10/18 20:10 Straw (Yellow) 07/11/18 01:29 Clear (Clear) 07/11/18 01:29 5.0 (5.0-7.0) 07/11/18 01:29 Ur Specific [place] 1.013 (1.003-1.030) 07/11/18 01:29 100 mg/dl mg/dL (Negative) 07/11/18 01:29 >=500 mg/dL (Negative) 07/11/18 01:29 Neg mg/dL (Negative) 07/11/18 01:29 Neg (Negative) 07/11/18 01:29 Neg (Negative) 07/11/18 01:29 Neg (Negative) 07/11/18 01:29 < 2.0 mg/dL (<2.0) 07/11/18 01:29 Ur Leukocyte Esterase Neg (Negative) 07/11/18 01:29 < 1.0 /HPF (0.0-6.0) 07/11/18 01:29 1.0 /HPF (0.0-6.0) 07/11/18 01:29 U Epithel Cells (Auto) < 1.0 /HPF (0-13.0) 07/11/18 01:29 Active Medications - Current Medications Current Medications: Generic Name Dose Route Start Last Admin Trade Name Freq PRN Reason Stop Dose Admin Acetaminophen 650 mg 07/10/18 23:25 Tylenol PO Q4H PRN Pain MILD(1-3)/Fever >100.5/DIEGO Albuterol/Ipratropium 1 ampul 07/11/18 02:00 07/15/18 13:55 Duoneb *Not For Prn Use* IH 1 ampul Q6HRT BALJINDER Administration Carvedilol 25 mg 07/11/18 02:00 07/15/18 10:33 Coreg PO 25 mg BID BALJINDER Administration Clonidine HCl 0.2 mg 07/11/18 02:00 07/15/18 10:32 Catapres PO 0.2 mg Q12HR BALJINDER Administration Dextrose 50 ml 07/11/18 00:13 D50w (25gm) Syringe IV PRN PRN Hypoglycemia Enoxaparin Sodium 40 mg 07/11/18 10:00 07/15/18 10:32 Lovenox SUB-Q 40 mg QDAY BALJINDER Administration Furosemide 40 mg 07/10/18 23:45 07/15/18 10:36 Lasix IV 40 mg BID BALJINDER Administration Guaifenesin 10 ml 07/11/18 01:22 07/15/18 08:59 Guaifenesin Dm Syrup PO 10 ml Q4H PRN Administration Cough Hydralazine HCl 10 mg 07/11/18 01:25 Apresoline IV Q4H PRN Blood Pressure Azithromycin 500 mg/ Sodium 250 mls @ 250 mls/hr 07/11/18 10:00 07/15/18 10 :35 Chloride IV 250 mls/hr Q24HR BALJINDER Administration Insulin Glargine 28 units 07/14/18 14:00 07/15/18 10:34 Lantus SUB-Q 28 units BID BALJINDER Administration Insulin Human Lispro 0 unit 07/11/18 07:30 07/15/18 13:42 Humalog SUB-Q 8 unit ACHS BALJINDER Administration Protocol Methylprednisolone Sodium Succinate 40 mg 07/14/18 20:00 07/15/18 13:39 Solu-Medrol IV 40 mg Q8H BALJINDER Administration Morphine Sulfate 2 mg 07/10/18 23:25 Morphine IV Q4H PRN Pain, Moderate (4-6) Ondansetron HCl 4 mg 07/10/18 23:25 Zofran IV Q8H PRN Nausea And Vomiting Oxycodone/Acetaminophen 1 tab 07/10/18 23:25 07/15/18 08:31 Percocet 5/325 PO 1 tab Q6H PRN Administration Pain, Moderate (4-6) Sodium Chloride 10 ml 07/11/18 10:00 07/15/18 10:35 Sodium Chloride Flush Syringe 10 Ml IV 10 ml BID BALJINDER Administration Sodium Chloride 10 ml 07/10/18 23:25 07/11/18 23:14 Sodium Chloride Flush Syringe 10 Ml IV 10 ml PRN PRN Administration LINE FLUSH
[2018-07-16] MEDS: DUONEB *Not for PRN Use IH SCH ×3 (02:04→15:40)
[2018-07-16] MEDS: SOLU-Medrol IV SCH (03:23)
[2018-07-16] MEDS ORDERED: CATHFLO IV ONE (06:22)
[2018-07-16 07:48] LABS: Hematocrit 37.8 % (30.3-42.9); Mean Corpuscular HGB Conc 32 % (30-34); Mean Corpuscular Volume 85 fl (79-97); Platelet Count 314 K/mm3 (140-440); Red Blood Count 4.44 M/mm3 (3.65-5.03); Red Cell Distribution Width 15.5 % (13.2-15.2)
[2018-07-16] MEDS: COREG PO SCH (09:13)
[2018-07-16] MEDS: LOVENOX SUB-Q SCH (09:13)
[2018-07-16] MEDS: HumaLOG SUB-Q SCH ×3 (09:14→17:13)
[2018-07-16] MEDS: CATAPRES PO SCH (09:15)
[2018-07-16] MEDS: LASIX IV SCH (09:15)
[2018-07-16] MEDS: SODIUM CHLORIDE FLUSH SYRINGE 10 ML IV SCH (09:17)
[2018-07-16] MEDS: LANTUS SUB-Q SCH (09:54)
[2018-07-16] MEDS: ZITHROMAX 500 MG in NACL 0.9% 250ML 250 ML IV SCH (09:55)
[2018-07-16 10:12] LABS: Anisocytosis 1+; Basophils % (Manual) 0 % (0.0-1.8); Eosinophils % (Manual) 0 % (0.0-4.3); Total Cells Counted 100
[2018-07-16 10:13] LABS: Platelet Estimate Consistent w Auto
[2018-07-16 12:51] VITALS: BP 180/92
[2018-07-16] MEDS ORDERED: SOLU-Medrol IV SCH (14:00)
--- NOTE | 2018-07-16 15:18 | Discharge Summary ---
Providers - Providers Date of Admission: 07/10/18 23:25 Date of discharge: 07/16/18 Attending physician: CHUY ESPINO Hospitalization Condition: Critical Pertinent studies: CXR Hospital course: 58-year-old morbidly obese female patient with a significant history of COPD home oxygen dependent, CHF with diastolic heart failure, obstructive sleep apnea, diabetes mellitus type 2, hypertension and morbid obesity was admitted through emergency room with worsening shortness of breath acute on chronic hypoxic respiratory failure secondary to COPD exacerbation. Patient was placed on supplemental O2 to titrate O2 sats to more than 90%, scheduled nebulizers, tapering dose of IV steroids and IV antibiotics. She was also managed with fluid restriction and low sodium diabetic diet, adjusted insulin doses, BP monitored, counseled for weight reduction. She improved clinically and was stable for discharge. Discharge plan and management was tolerated discuss with the patient and she did verbalize understanding. Patient was then sure she remained stable condition with outpatient follow-up. Discharge diagnosis and management: --Acute on chronic respiratory failure with hypoxia; symptoms significantly improved with Oxygen titrate O2 sats to more than 90%, nebulizers, IV steroids and IV antibiotics --Acute exacerbation of COPD with acute bronchitis managed with Oxygen, nebulizer, steroids and antibiotics --Acute on chronic diastolic heart failure with EF of 55-60% Placed on anti-failure medications, low-sodium diet and water restriction --Atypical chest pain, ruled out ACS, likely GERD Serial cardiac enzymes negative, symptoms improved --Obstructive sleep apnea ;Patient is noncompliant with her CPAP at home Counseled the importance of adhering to the treatment plan --DM2 with hyperglycemia; uncontrolled Partly secondary to high-dose steroids, taper the dose of steroid Increase Lantus insulin 25 units subcutaneous twice a day and closely monitor --HTN; well controlled, continue current antihypertensives --Morbid obesity with BMI of 56.5 Weight reduction and Lifestyle modification counseled May benefit by outpatient bariatric surgical evaluation for weight reduction program Upon discharge --DVT prophylaxis with Lovenox Disposition; home with Hospitalist Physical General appearance: Present: no acute distress, well-nourished, obese (morbidly obese) - EENT Eyes: Present: PERRL, EOM intact - Neck Neck: Present: supple, normal ROM - Respiratory Respiratory effort: normal Respiratory: bilateral: diminished, wheezing, negative: rales, rhonchi - Cardiovascular Rhythm: regular Heart Sounds: Present: S1 & S2 - Extremities Extremities: no ischemia, No edema - Abdominal General gastrointestinal: soft, non-tender, non-distended, normal bowel sounds - Integumentary Integumentary: Present: clear, warm - Psychiatric Psychiatric: appropriate mood/affect, cooperative - Neurologic Neurologic: CNII-XII intact, moves all extremities Disposition: [id number] HOME UND[facility] Time spent for discharge: 34 minutes Core Measure Documentation - Palliative Care Palliative Care/ Comfort Measures: Not Applicable - Core Measures Any of the following diagnoses?: heart failure - Heart Failure Discharge Requirements SOFIE/ARB for LVSD if EF <40%: Not Applicable Beta tai at discharge: Yes Exam - Constitutional Vitals: Temp Pulse Resp BP Pulse Ox 97.3 F L 66 22 180/92 97 07/16/18 11:58 07/16/18 11:58 07/16/18 11:58 07/16/18 11:58 07/16/18 11:58 Plan Activity: advance as tolerated Weight Bearing Status: Weight Bear as Tolerated Diet: low fat, low salt, diabetic Special Instructions: record daily weights, record daily BP diary, record blood sugar diary Follow up with: DION SOUZA [Other] - 3-5 Days Prescriptions: cloNIDine [Catapres] 0.2 mg PO Q12HR #60 tablet Carvedilol [Coreg] 25 mg PO BID #60 tablet Ipratropium/Albuterol Sulfate [DUONEB *Not for PRN Use*] 1 ampul IH Q6HRT 30 Days #60 ampul.neb Insulin Glargine [Lantus VIAL] 28 units SUB-Q BID 30 Days #10 ml amLODIPine [Norvasc] 10 mg PO DAILY #30 tab Prednisone [predniSONE 5 mg (6-Day Pack, 21 Tabs)] 5 mg PO .TAPER #1 tab.ds.pk ALBUTEROL Inhaler (OR & NICU) [Proair] 2 puff IH QID PRN 30 Days #1 vial PRN Reason: Shortness Of Breath Budesonide/Formoterol Fumarate [Symbicort 160-4.5 Mcg Inhaler] 10.2 gm IH BID 30 Days #1 hfa.aer.ad
== END 2018-07-16 19:39 | disposition home health service (06) | DRG 291 ==
LOC: ED 18:08 → 4A 23:25 → 3A 07-13 16:51
PROVIDERS: ADMIT Internal Medicine; ATTEND Internal Medicine
DX: I11.0 Hypertensive heart disease with heart failure (principal); N17.0 Acute kidney failure with tubular necrosis; J96.21 Acute and chronic respiratory failure with hypoxia; Z68.44 Body mass index [BMI] 60.0-69.9, adult; J44.1 Chronic obstructive pulmonary disease with (acute) exacerbation; J44.0 Chronic obstructive pulmonary disease with (acute) lower respiratory infection; J45.901 Unspecified asthma with (acute) exacerbation; R65.10 Systemic inflammatory response syndrome (SIRS) of non-infectious origin without acute organ dysfunction; I50.33 Acute on chronic diastolic (congestive) heart failure; E66.01 Morbid (severe) obesity due to excess calories; J20.9 Acute bronchitis, unspecified; G47.33 Obstructive sleep apnea (adult) (pediatric); T38.0X5A Adverse effect of glucocorticoids and synthetic analogues, initial encounter; E09.65 Drug or chemical induced diabetes mellitus with hyperglycemia; Z91.14 Patient's other noncompliance with medication regimen; Y92.89 Other specified places as the place of occurrence of the external cause; Z90.49 Acquired absence of other specified parts of digestive tract; Z79.4 Long term (current) use of insulin; Z79.899 Other long term (current) drug therapy; Z82.49 Family history of ischemic heart disease and other diseases of the circulatory system
CPT/HCPCS: 36415; 71045; 80048; 80053; 81001; 82140; 82550; 82553; 82947; 82962; 83735; 83880; 84484; 85007; 85025; 93005; 93010; 94640; 94760; 96365; 96375; G0378; J0456; J1170; J1650; J1815; J1940; J2270; J2920; J2930; J3475; J7050

== ENCOUNTER 2018-09-20 23:33 | Emergency (ER) | payer MEDICARE ==
[~2018-09-20 23:33] MED LIST: AMIDATE IV ONE; ZEMURON IV ONE
--- NOTE | 2018-09-20 23:36 | Emergency Department Report ---
ED Neuro Deficit HPI - General Stated Complaint: CVA Time Seen by Provider: 09/20/18 23:35 Source: EMS Mode of arrival: Stretcher Limitations: Physical Limitation - History of Present Illness Initial Comments: Patient is a 58-year-old female that presents to the emergency room with complaints of left-sided paralysis and left-sided facial droop. last known well time 10:45 PM today. Report received from EMS. -: Sudden Presenting Symptoms: Present: Weak/Paralyzed One Side, Facial Droop/Numbness, Unable to Speak Clearly History of same: No Place: home Severity: severe Quality: numb Improves With: none Worsens With: none On Anticoagulants: Yes Context: sudden onset Treatments Prior to Arrival: oxygen - Related Data Home Medications: Previous Rx's Medication Instructions Recorded Last Taken Type Insulin Aspart [NovoLOG Flexpen] 8 units SQ AC #1 insuln.pen 12/02/17 07/10/18 Rx ALBUTEROL Inhaler (OR & NICU) 2 puff IH QID PRN 30 Days #1 vial 07/16/18 Unknown Rx [Proair] Budesonide/Formoterol Fumarate 10.2 gm IH BID 30 Days #1 07/16/18 Unknown Rx [Symbicort 160-4.5 Mcg Inhaler] hfa.aer.ad Carvedilol [Coreg] 25 mg PO BID #60 tablet 07/16/18 Unknown Rx Insulin Glargine [Lantus VIAL] 28 units SUB-Q BID 30 Days #10 ml 07/16/18 Un known Rx Ipratropium/Albuterol Sulfate 1 ampul IH Q6HRT 30 Days #60 07/16/18 Unknown Rx [DUONEB *Not for PRN Use*] ampul.neb Prednisone [predniSONE 5 mg (6-Day 5 mg PO .TAPER #1 tab.ds.pk 07/16/18 Unknown Rx Pack, 21 Tabs)] amLODIPine [Norvasc] 10 mg PO DAILY #30 tab 07/16/18 Unknown Rx cloNIDine [Catapres] 0.2 mg PO Q12HR #60 tablet 07/16/18 Unknown Rx Allergies/Adverse Reactions: Allergies Allergy/AdvReac Type Severity Reaction Status Date / Time No Known Allergies Allergy Unverified 05/07/18 18:25 ED Review of Systems ROS: Stated complaint: CVA Other details as noted in HPI Comment: Unobtainable due to pts medical conditions ED Past Medical Hx - Past Medical History Previous Medical History?: Yes Hx Hypertension: Yes Hx Heart Attack/AMI: No Hx Congestive Heart Failure: Yes Hx Diabetes: Yes Hx Deep Vein Thrombosis: No Hx Pulmonary Embolism: No Hx Liver Disease: No Hx Renal Disease: No Hx Sickle Cell Disease: No Hx Arthritis: No Hx Seizures: No Hx Kidney Stones: No Hx Asthma: Yes Hx COPD: Yes Hx Tuberculosis: No Hx Dementia: No Hx HIV: No Additional medical history: high cholesterol - Surgical History Past Surgical History?: Yes Hx Coronary Stent: No Hx Open Heart Surgery: No Hx Pacemaker: No Hx Internal Defibrillator: No Hx Cholecystectomy: Yes Hx Appendectomy: Yes Hx Breast Surgery: No - Family History Family history: no significant - Social History Smoking Status: Never Smoker Substance Use Type: None - Medications Home Medications: Home Medications Medication Instructions Recorded Confirmed Last Taken Type Insulin Aspart [NovoLOG Flexpen] 8 units SQ AC #1 insuln.pen 12/02/17 07/10/18 07/10/18 Rx ALBUTEROL Inhaler (OR & NICU) 2 puff IH QID PRN 30 Days #1 vial 07/16/18 Unknown Rx [Proair] Budesonide/Formoterol Fumarate 10.2 gm IH BID 30 Days #1 07/16/18 Unknown Rx [Symbicort 160-4.5 Mcg Inhaler] hfa.aer.ad Carvedilol [Coreg] 25 mg PO BID #60 tablet 07/16/18 Unknown Rx Insulin Glargine [Lantus VIAL] 28 units SUB-Q BID 30 Days #10 ml 07/16/18 Unknown Rx Ipratropium/Albuterol Sulfate 1 ampul IH Q6HRT 30 Days #60 07/16/18 Unknown Rx [DUONEB *Not for PRN Use*] ampul.neb Prednisone [predniSONE 5 mg (6-Day 5 mg PO .TAPER #1 tab.ds.pk 07/16/18 Unknown Rx Pack, 21 Tabs)] amLODIPine [Norvasc] 10 mg PO DAILY #30 tab 07/16/18 Unknown Rx cloNIDine [Catapres] 0.2 mg PO Q12HR #60 tablet 07/16/18 Unknown Rx ED Neuro Physical Exam - General Limitations: No Limitations, Physical Limitation General appearance: alert, in no apparent distress Suspected Stroke: Yes - Head Head exam: Present: atraumatic, normocephalic - Eye Eye exam: Present: normal appearance, PERRL Pupils: Present: normal accommodation - ENT ENT exam: Present: mucous membranes moist - Neck Neck exam: Present: normal inspection - Respiratory Respiratory exam: Present: normal lung sounds bilaterally. Absent: respiratory distress - Cardiovascular Cardiovascular Exam: Present: regular rate, normal rhythm. Absent: systolic murmur, diastolic murmur, rubs, gallop - GI/Abdominal GI/Abdominal exam: Present: soft, normal bowel sounds. Absent: distended, tenderness, guarding - Rectal Rectal exam: Present: deferred - Extremities Exam Extremities exam: Present: normal inspection - Back Exam Back exam: Present: normal inspection - Neurological Exam Neurological exam: Present: altered - NIHSS Assessment Interval: Baseline 1a. Level of Consciousness: alert/keenly responsive 1b. LOC Questions: answers both correctly 1c. LOC Commands: performs tasks correctly 2. Best Gaze: normal 3. Visual: no visual loss 4. Facial Palsy: unilateral complete paralysis 5b. Motor Arm Right: no drift 5a. Motor Arm Left: no movement 6a. Motor Leg Left: no movement 6b. Motor Leg Right: no drift 7. Limb Ataxia: absent 8. Sensory: normal 9. Best Language: no aphasia 10. Dysarthria: severe dysarthria 11. Extinction/Inattention: no abnormality Total Score: 13 Stroke Severity: Moderate Stroke - Psychiatric Psychiatric exam: Present: normal affect, normal mood - Skin Skin exam: Present: warm, dry, intact, normal color. Absent: rash ED Course Vital Signs 09/21/18 09/21/18 09/21/18 00:14 00:19 01:03 Temperature 98.1 F 99.1 F Pulse Rate 152 H 125 H Respiratory 18 Rate Blood Pressure 251/130 211/120 [Right] O2 Sat by Pulse 100 100 100 Oximetry - Reevaluation(s) Reevaluation #1: Initial evaluation done on the way to CT. Patient will have a CT of the head." code Stroke was initiated prior to patient arrival. 09/21/18 023:30 Reevaluation #2: Patient became unresponsive and CT. Patient noted to have a large bleed on the CT scan. Patient brought back to the ER and immediately intubated. Patient's current GCS is 5, patient's best I response is a 1, best verbal response is 2 and compressible sound, and best motor is 2 09/21/18 00:01 Reevaluation #3: She has been accepted to [facility] [place] [facility]. The patient will be transferred via EMS to [facility] [place] [facility]. 09/21/18 00:25 Reevaluation #4: Patient's blood pressure had improved after being started on propofol. P atient's blood pressure above 200 and will be started on nicardipine drip. Patient will also be given Keppra. 09/21/18 00:30 Reevaluation #5: Patient's blood pressure is improving and patient is ready for transport. EMS has arrived and is ready to transport the patient. Patient transferred to EMS stretcher. Patient's current blood pressure is 170/90. Drip instructions given to EMS. 09/21/18 01:31 - Consultations Consultation #1: [facility] [place] [facility] neurosurgery paged 09/21/18 00:[address] Lopez, neurosurgery at [facility] [place] [facility]. Patient has been accepted to be transferred to [facility] [place] [facility] neuro ICU. 09/21/18 00:20 - Intubation Time Out Performed: Yes Sedative: Etomidate Paralytic: Rocuronium Laryngoscope: fiberoptic video scope Size: 4 Assist Device Used: fiberoptic device ET Tube Size: 7.5 Tube Secured Depth (cm): 22 Tube Secured Location: teeth Tube Placement Confirmation: visualized tube passing t, equal breath sounds bilat, no breath sounds over epi, confirmation by capnometr Patient Tolerated Procedure: well Intubation Complications: none Additional Comments: O2 sat stable entire intubation. After intubation the sat remained at 99-100 - Lab Data Result diagrams: 09/20/18 23:54 09/21/18 00:44 Lab Results 09/20/18 09/20/18 09/20/18 Range/Units 23:54 23:54 23:54 WBC 22.6 H (4.5-11.0) K/mm3 RBC 4.44 (3.65-5.03) M/mm3 Hgb 11.8 (10.1-14.3) gm/dl Hct 37.8 (30.3-42.9) % MCV 85 (79-97) fl MCH 27 L (28-32) pg MCHC 31 (30-34) % RDW 15.6 H (13.2-15.2) % Plt Count 429 (140-440) K/mm3 Lymph % (Auto) Tucking Machine Operator [place] % (Auto) Tucking Machine Operator Eos % (Auto) Tucking Machine Operator Baso % (Auto) Tucking Machine Operator Lymph # Tucking Machine Operator [place] # Tucking Machine Operator Eos # Tucking Machine Operator Baso # Tucking Machine Operator Add Manual Diff Complete Total Counted 100 Seg Neutrophils % Tucking Machine Operator Seg Neuts % (Manual) 62.0 (40.0-70.0) % Band Neutrophils % 0 % Lymphocytes % (Manual) 33.0 (13.4-35.0) % Reactive Lymphs % (Man) 1.0 % Monocytes % (Manual) 1.0 (0.0-7.3) % Eosinophils % (Manual) 2.0 (0.0-4.3) % Basophils % (Manual) 1.0 (0.0-1.8) % Metamyelocytes % 0 % Myelocytes % 0 % Promyelocytes % 0 % Blast Cells % 0 % Nucleated RBC % Not Reportable Seg Neutrophils # Tucking Machine Operator Seg Neutrophils # Man 14.0 H (1.8-7.7) K/mm3 Band Neutrophils # 0.0 K/mm3 Lymphocytes # (Manual) 7.5 H (1.2-5.4) K/mm3 Abs React Lymphs (Man) 0.2 K/mm3 Monocytes # (Manual) 0.2 (0.0-0.8) K/mm3 Eosinophils # (Manual) 0.5 H (0.0-0.4) K/mm3 Basophils # (Manual) 0.2 H (0.0-0.1) K/mm3 Metamyelocytes # 0.0 K/mm3 Myelocytes # 0.0 K/mm3 Promyelocytes # 0.0 K/mm3 Blast Cells # 0.0 K/mm3 WBC Morphology Not Reportable Hypersegmented Neuts Not Reportable Hyposegmented Neuts Not Reportable Hypogranular Neuts Not Reportable Smudge Cells Not Reportable Toxic Granulation Not Reportable Toxic Vacuolation Not Reportable Dohle Bodies Not Reportable Pelger-Huet Anomaly Not Reportable Dru Rods Not Reportable Platelet Estimate Consistent w auto Clumped Platelets Not Reportable Plt Clumps, EDTA Not Reportable Large Platelets Not Reportable Giant Platelets Not Reportable Platelet Satelliting Not Reportable Plt Morphology Comment Not Reportable RBC Morphology Not Reportable Dimorphic RBCs Not Reportable Polychromasia Not Reportable Hypochromasia Not Reportable Poikilocytosis Not Reportable Anisocytosis Few Microcytosis Not Reportable Macrocytosis Not Reportable Spherocytes Not Reportable Pappenheimer Bodies Not Reportable Sickle Cells Not Reportable Target Cells Not Reportable Tear Drop Cells Not Reportable Ovalocytes Not Reportable Helmet Cells Not Reportable [place] Bodies Not Reportable Sl[place]den Rings Not Reportable Ritu Cells Not Reportable Bite Cells Not Reportable Crenated Cell Not Reportable Elliptocytes Not Reportable Acanthocytes (Spur) Not Reportable Rouleaux Not Reportable Hemoglobin C Crystals Not Reportable Schistocytes Not Reportable Malaria parasites Not Reportable Leonid Bodies Not Reportable Hem Pathologist Commnt No PT 12.3 (12.2-14.9) Sec. INR 0.94 (0.87-1.13) APTT 28.8 (24.2-36.6) Sec. Thrombin Time 17.4 (15.1-19.6) Sec. Sodium (137-145) mmol/L Potassium (3.6-5.0) mmol/L Chloride (98-107) mmol/L Carbon Dioxide (22-30) mmol/L Anion Gap mmol/L BUN (7-17) mg/dL Creatinine (0.7-1.2) mg/dL Estimated GFR ml/min BUN/Creatinine Ratio % Glucose (65-100) mg/dL Calcium (8.4-10.2) mg/dL Troponin T (0.00-0.029) ng/mL Urine Color (Yellow) Urine Turbidity (Clear) Urine pH (5.0-7.0) Ur Specific Mcdaniel (1.003-1.030) Urine Protein (Negative) mg/dL Urine Glucose (UA) (Negative) mg/dL Urine Ketones (Negative) mg/dL Urine Blood (Negative) Urine Nitrite (Negative) Urine Bilirubin (Negative) Urine Urobilinogen (<2.0) mg/dL Ur Leukocyte Esterase (Negative) Urine WBC (Auto) (0.0-6.0) /HPF Urine RBC (Auto) (0.0-6.0) /HPF U Epithel Cells (Auto) (0-13.0) /HPF Urine Mucus /HPF 09/21/18 09/21/18 Range/Units 00:30 00:44 WBC (4.5-11.0) K/mm3 RBC (3.65-5.03) M/mm3 Hgb (10.1-14.3) gm/dl Hct (30.3-42.9) % MCV (79-97) fl MCH (28-32) pg MCHC (30-34) % RDW (13.2-15.2) % Plt Count (140-440) K/mm3 Lymph % (Auto) [place] % (Auto) Eos % (Auto) Baso % (Auto) Lymph # [place] # Eos # Baso # Add Manual Diff Total Counted Seg Neutrophils % Seg Neuts % (Manual) (40.0-70.0) % Band Neutrophils % % Lymphocytes % (Manual) (13.4-35.0) % Reactive Lymphs % (Man) % Monocytes % (Manual) (0.0-7.3) % Eosinophils % (Manual) (0.0-4.3) % Basophils % (Manual) (0.0-1.8) % Metamyelocytes % % Myelocytes % % Promyelocytes % % Blast Cells % % Nucleated RBC % Seg Neutrophils # Seg Neutrophils # Man (1.8-7.7) K/mm3 Band Neutrophils # K/mm3 Lymphocytes # (Manual) (1.2-5.4) K/mm3 Abs React Lymphs (Man) K/mm3 Monocytes # (Manual) (0.0-0.8) K/mm3 Eosinophils # (Manual) (0.0-0.4) K/mm3 Basophils # (Manual) (0.0-0.1) K/mm3 Metamyelocytes # K/mm3 Myelocytes # K/mm3 Promyelocytes # K/mm3 Blast Cells # K/mm3 WBC Morphology Hypersegmented Neuts Hyposegmented Neuts Hypogranular Neuts Smudge Cells Toxic Granulation Toxic Vacuolation Dohle Bodies Pelger-Huet Anomaly Dru Rods Platelet Estimate Clumped Platelets Plt Clumps, EDTA Large Platelets Giant Platelets Platelet Satelliting Plt Morphology Comment RBC Morphology Dimorphic RBCs Polychromasia Hypochromasia Poikilocytosis Anisocytosis Microcytosis Macrocytosis Spherocytes Pappenheimer Bodies Sickle Cells Target Cells Tear Drop Cells Ovalocytes Helmet Cells [place] Bodies Slayden Rings Reading Cells Bite Cells Crenated Cell Elliptocytes Acanthocytes (Spur) Rouleaux Hemoglobin C Crystals Schistocytes Malaria parasites Leonid Bodies Hem Pathologist Commnt PT (12.2-14.9) Sec. INR (0.87-1.13) APTT (24.2-36.6) Sec. Thrombin Time (15.1-19.6) Sec. Sodium 141 (137-145) mmol/L Potassium 4.7 (3.6-5.0) mmol/L Chloride 98.8 (98-107) mmol/L Carbon Dioxide 34 H (22-30) mmol/L Anion Gap 13 mmol/L BUN 16 (7-17) mg/dL Creatinine 1.0 (0.7-1.2) mg/dL Estimated GFR > 60 ml/min BUN/Creatinine Ratio 16 % Glucose 217 H (65-100) mg/dL Calcium 9.7 (8.4-10.2) mg/dL Troponin T < 0.010 (0.00-0.029) ng/mL Urine Color Straw (Yellow) Urine Turbidity Clear (Clear) Urine pH 8.0 H (5.0-7.0) Ur Specific Mcdaniel 1.013 (1.003-1.030) Urine Protein >500 (Negative) mg/dL Urine Glucose (UA) >=500 (Negative) mg/dL Urine Ketones Neg (Negative) mg/dL Urine Blood Neg (Negative) Urine Nitrite Neg (Negative) Urine Bilirubin Neg (Negative) Urine Urobilinogen < 2.0 (<2.0) mg/dL Ur Leukocyte Esterase Neg (Negative) Urine WBC (Auto) 1.0 (0.0-6.0) /HPF Urine RBC (Auto) 3.0 (0.0-6.0) /HPF U Epithel Cells (Auto) < 1.0 (0-13.0) /HPF Urine Mucus Few /HPF - EKG Data -: EKG Interpreted by Me EKG shows normal: sinus rhythm, axis, intervals, QRS complexes, ST-T waves Rate: tachycardia - Radiology Data Radiology results: report reviewed, image reviewed interpreted by me: I viewed the images and CT and shows a intracranial hemorrhage. Head CT without intravenous contrast INDICATION: Weakness, stroke FINDINGS: There is marked motion artifact which significantly degrades the images. In spite of this the study does demonstrate a 2.4 x 2.1 cm right thalamic hematoma. No definite hemorrhage in the remainder the brain. There is no hydrocephalus present. No gross extra-axial fluid collection. IMPRESSION: Significantly limited scan but it is positive for right thalamic hematoma. - Medical Decision Making Patient is a 58-year-old female presents emergency room with complaints of left- sided facial droop and left-sided paralysis. Patient noted to have high blood pressure. Patient found to have a intracranial hemorrhage on CT. Patient will be transferred to [facility] [place]. Patient has been accepted by [facility] [place] neurosurgery. Patient intubated immediately after head CT since the patient became unresp onsive. Patient placed on nicardipine drip for elevated blood pressure. Patient given Keppra. Patient on a propofol drip for sedation. Labs done and essentially unremarkable. EKG negative - Differential Diagnosis intracranial hemorrhage. Stroke. High blood pressure. Encephalopathy. Critical Care Time: Yes Critical care attestation.: If time is entered above; I have spent that time in minutes in the direct care o f this critically ill patient, excluding procedure time. Critical Care Time: 85 minutes ED Disposition Clinical Impression: Hypertensive emergency, Unresponsive, Facial droop, Slurred speech, Left-sided weakness ICH (intracerebral hemorrhage) Qualifiers: Intracerebral hemorrhage etiology: nontraumatic Cerebral hemorrhage location: cerebral hemisphere, unspecified portion Laterality: right Qualified Code(s): I61.2 - Nontraumatic intracerebral hemorrhage in hemisphere, unspecified Disposition: DC/TX-70 ANOTHER TYPE HLTHCARE Is pt being admited?: No Does the pt Need Aspirin: No Condition: Critical Time of Disposition: 01:32
[2018-09-21] MEDS ORDERED: DIPRIVAN 10 MG/ML 1,000 MG/100 ML BOTTLE IV ONE (00:09)
--- NOTE | 2018-09-21 00:11 | Cat Scan Report ---
Head CT without intravenous contrast INDICATION: Weakness, stroke FINDINGS: There is marked motion artifact which significantly degrades the images. In spite of this t he study does demonstrate a 2.4 x 2.1 cm right thalamic hematoma. No definite hemorrhage in the remai nder the brain. There is no hydrocephalus present. No gross extra-axial fluid collection. IMPRESSION: Significantly limited scan but it is positive for right thalamic hematoma. CRITICAL RESULT: Time of Discovery: 2300 Time of Communication: [id number] Licensed Practitioner Receiving Report: Dr. Josiah Mayer Read Back Performed: Not required Signer Name: Jae Jordan MD Signed: 09/21/2018 12:07 AM Workstation Name: [id number]
[2018-09-21 00:25] LABS: INR 0.94 (0.87-1.13)
[2018-09-21] MEDS ORDERED: KEPPRA 1,000 MG/NS 0.75% 100ML 1,000 MG/100 ML BAG IV ONE (00:25)
[2018-09-21 00:26] LABS: Partial Thromboplastin Time 28.8 Sec. (24.2-36.6)
[2018-09-21 00:41] LABS: Hematocrit 37.8 % (30.3-42.9); Hemoglobin 11.8 gm/dl (10.1-14.3); Mean Corpuscular HGB Conc 31 % (30-34); Mean Corpuscular Volume 85 fl (79-97); Platelet Count 429 K/mm3 (140-440); Red Blood Count 4.44 M/mm3 (3.65-5.03); Red Cell Distribution Width 15.6 % (13.2-15.2)
[2018-09-21] MEDS ORDERED: fentaNYL DRIP Premix 2,000 MCG/100 ML BAG IV ONE (00:46)
[2018-09-21] MEDS ORDERED: DIPRIVAN 10 MG/ML 1,000 MG/100 ML BOTTLE IV SCH (01:00)
[2018-09-21] MEDS ORDERED: fentaNYL DRIP Premix 2,000 MCG/100 ML BAG IV SCH (01:00)
[2018-09-21] MEDS ORDERED: CARDENE 50 MG in NACL 0.9% 250ML 230 ML IV SCH (01:00)
[2018-09-21 01:06] LABS: BUN/Creatinine Ratio 16; Blood Urea Nitrogen 16 mg/dL (7-17); Calcium 9.7 mg/dL (8.4-10.2); Hemolysis Index 55
[2018-09-21 01:14] LABS: Bilirubin,Urine NEG (Negative); Blood,Urine NEG (Negative); Color,Urine Straw (Yellow); Mucus,Urine FEW /HPF; Urobilinogen,Urine < 2.0 mg/dL (<2.0)
[2018-09-21 01:16] LABS: Protein,Urine >500 mg/dL (Negative)
[2018-09-21 02:32] LABS: Total Cells Counted 100
[2018-09-21 02:33] LABS: Anisocytosis Few; Platelet Estimate Consistent w Auto
[2018-09-21 04:40] VITALS: BP 179/96
== END 2018-09-21 01:45 | disposition other institution (70) ==
LOC: ED 23:33
DX: I61.8 Other nontraumatic intracerebral hemorrhage (principal); I16.1 Hypertensive emergency; R29.810 Facial weakness; R47.81 Slurred speech; I11.0 Hypertensive heart disease with heart failure; I50.9 Heart failure, unspecified; E11.9 Type 2 diabetes mellitus without complications; J44.9 Chronic obstructive pulmonary disease, unspecified; E78.00 Pure hypercholesterolemia, unspecified; Z79.899 Other long term (current) drug therapy; Z79.4 Long term (current) use of insulin; Z90.49 Acquired absence of other specified parts of digestive tract
CPT/HCPCS: 31500; 36415; 70450; 80048; 81001; 82962; 84484; 85007; 85025; 85610; 85670; 85730; 93005; 93010; 96365; 96368; 99291; 99292; J1953; J2704; J7050; J3010